=== PATIENT | male | born 1970 | race Caucasian/White ===

== ENCOUNTER 2021-01-08 14:47 | Emergency (ER) | payer BC, SELFPAY ==
--- NOTE | ~2021-01-08 | CT_ITS ---
EXAMINATION: CT ANGIOGRAM HEAD CT ANGIOGRAM NECK CLINICAL INFORMATION: Numbness and tingling. COMPARISON: None available. TECHNIQUE: Initial noncontrast founder ceo & president imaging of the head and neck was performed. Noncontrast head CT was also performed. Test bolus sequences followed by intravenous administration 70 mL of Omnipaque 350. Helical imaging was performed in the axial plane from the aortic arch to the skull vertex. Delayed postcontrast imaging of the head was also performed. The data was processed at the survey technologist's workstation for generation of MIP sequences. Angled MIPs and volume rendered reformatted images were also generated at an offline 3D workstation. Stenoses are assessed in accordance with NASCET criteria unless otherwise indicated. This CT examination was performed using dose optimization techniques as appropriate, variously including the following: *Automated exposure control. *Adjustment of mA and/or kV according to patient size (this includes techniques or standardized protocols for targeted exams where dose is matched to indication/reason for exam; i.e. extremities or head). *Use of iterative reconstruction technique. DLP: 2474 mGy-cm FINDINGS: CT Head: There is no evidence of acute intracranial hemorrhage or edematous territorial infarction. There is no abnormal attenuation within the brain parenchyma. Ken-white matter differentiation is preserved. The ventricles are normal in size and configuration. No evidence for obstructive hydrocephalus. No abnormal mass effect or midline shift. No extra-axial fluid collections. No pathologic intra-axial enhancement or regional oligemia. No acute soft tissue or osseous abnormalities. Moderate mucosal thickening of the paranasal sinuses. The mastoid air cells and middle ear cavities are clear. Right-sided lens extraction. CT Neck: The thyroid gland and remaining cervical soft tissues are within normal limits. Moderate degenerative disc disease at C5-C6 and C6-C7 with disc-osteophyte complex formation. Facet and uncovertebral joint arthropathy leads to mild osseous encroachment on the neural foramina at C5-C6 and C6-C7. CT Upper Chest: The visualized lung apices and upper mediastinum are within normal limits. Neck CTA: Aortic Arch: Normal contour and caliber. Two vessel branching pattern of the arch with left common carotid artery arising from the brachiocephalic trunk. Great Vessel Origins: No significant stenosis of the branch origins. Right Common Carotid Artery: Normal opacification without focal stenosis or occlusion. Cervical Right Internal Carotid Artery: Mild calcific atherosclerotic disease of the carotid bulb and proximal internal carotid artery without flow-limiting stenosis. Left Common Carotid Artery: Normal opacification without focal stenosis or occlusion. Cervical Left Internal Carotid Artery: Mixed lytic region calcific atherosclerotic disease of the carotid bulb and proximal internal carotid artery causes 50% stenosis. Cervical Right Vertebral Artery: Normal opacification without focal stenosis or occlusion. Cervical Left Vertebral Artery: Dominant. Normal opacification without focal stenosis or occlusion. Brain CTA: Intracranial Internal Carotid Arteries: Normal contrast opacification of the petrous, cavernous, paraophthalmic, and supraclinoid segments of the internal carotid arteries without focal stenosis. Right Anterior Cerebral Artery: Normal A1 segment. Normal opacification of the distal segments of the NATALYA. Left Anterior Cerebral Artery: Normal A1 segment. Normal opacification of the distal segments of the NATALYA. Anterior Communicating Artery: Normal. Right Middle Cerebral Artery: Normal opacification of the M1 segment of the MCA without focal stenosis or occlusion. Normal arborization of the distal segments. Left Middle Cerebral Artery: Normal opacification of the M1 segment of the MCA without focal stenosis or occlusion. Normal arborization of the distal segments. Right Vertebral Artery: Normal opacification of the V4 segment. Normal opacification of the proximal segments of the posterior inferior cerebellar artery. Left Vertebral Artery: Normal opacification of the V4 segment. Normal opacification of the proximal segments of the posterior inferior cerebellar artery. Basilar Artery: Normal opacification without focal stenosis or occlusion. Normal appearance of the proximal superior cerebellar arteries. Right Posterior Cerebral Artery: Normal P1 segment. Normal opacification of the distal segments of the MICROARRAY SPECIALIST. Left Posterior Cerebral Artery: The P1 segment is mildly diminutive. origin of the MICROARRAY SPECIALIST with robust opacification of the posterior communicating artery. Normal opacification of the distal segments of the MICROARRAY SPECIALIST. Normal opacification of the superior sagittal, straight, transverse, and sigmoid sinuses. CT/CT angio head neck IMPRESSION: 1. No evidence of acute intracranial hemorrhage or edematous territorial infarction. 2. CTA of the head and neck without proximal occlusion or flow-limiting stenosis. 3. Degenerative spondyloarthropathy of the cervical spine with moderate disc-osteophyte complex formation at C5-C6 and C6-C7 with indentation of the ventral cord.
[2021-01-08 14:54] VITALS: BP 164/84; PULSE 94; RESP 18; TEMP 36.8; O2SAT 97; BMI 32.8
--- NOTE | 2021-01-08 15:01 | ECG_ITS ---
Test Reason : WEAKNESS Blood Pressure : / mmHG Vent. Rate : 070 BPM Atrial Rate : 070 BPM P-R Int : 146 ms QRS Dur : 092 ms QT Int : 392 ms P-R-T Axes : 049 009 031 degrees QTc Int : 423 ms Normal sinus rhythm Normal ECG No previous ECGs available Referred By: Generic ED Physician Electronically Signed By:Juan J Walsh
[2021-01-08 15:19] LABS: MANUAL DIFF FLAG NO
[2021-01-08 15:21] LABS: Basophils Absolute Auto 0.1 X10*3/uL (0.0-0.2); Basophils Percent Auto 0.5 % (0-2); Eosinophils Absolute Auto 0.1 X10*3/uL (0.0-0.4); Eosinophils Percent Auto 1.3 % (0-4); Hematocrit 43.5 % (42-52); Hemoglobin 14.8 g/dl (14.0-18.0); Imm Gran Abs Auto 0.02 X10*3/uL (0.00-0.03); Imm Gran Pct Auto 0.2 % (0.0-0.4); Lymphocytes Absolute Auto 2.4 X10*3/uL (1.2-4.9); Lymphocytes Percent Auto 23.3 % (20-40); Mean Corpuscular Volume 88.2 fL (80-98); Mean Platelet Volume 9.9 fL (9.4-12.4); Monocytes Absolute Auto 0.8 X10*3/uL (0.1-1.2); Monocytes Percent Auto 7.7 % (2-11); Neutrophils Absolute Auto 6.8 X10*3/uL (2.0-8.3); Platelet Count 309 X10*3/uL (160-400); Red Blood Count 4.93 X10*6/uL (4.60-5.80); Red Cell Distribution Width 13.4 % (11.0-16.0); White Blood Count 10.2 X10*3/uL (4.8-10.8)
[2021-01-08 15:48] LABS: Anion Gap 14 (12-20); Blood Urea Nitrogen 11 mg/dL (9-16); Calcium 9.3 mg/dL (8.4-10.2); Carbon Dioxide 25 mmol/L (22-29); Chloride 103 mmol/L (96-108); Creatinine Clr Calc Pharmacy 112.6; Estimated Glomerular Filt Rate > 60; Glucose Random 111 mg/dL (60-115); Potassium 4.4 mmol/L (3.3-5.1); Sodium 138 mmol/L (135-145)
[2021-01-08 15:56] LABS: Troponin-I High Sensitivity < 3.5 ng/L (<3.5-35.0)
--- NOTE | 2021-01-08 19:49 | ED.GENADULT ---
HPI - General Adult General Chief complaint: General Medical Stated complaint: left side pain Source: patient Mode of arrival: ambulatory Limitations: no limitations History of Present Illness HPI narrative: 50-year-old male past medical history of hypertension and hyperlipidemia presents to the emergency department with 1 day of left-sided numbness and tingling, radiating from the neck down. He states that he did not present to the emergency department earlier because he had to work, and the only residual feeling he has at this time is numbness and tingling to the finger tips his 3rd 4th and 5th fingers of the left hand. He does not report any dizziness, changes in vision, lightheadedness, diaphoresis, loss of balance, palpitations, chest pain or pressure, shortness breath, shortness breath on exertion, edema, nausea, vomiting, diarrhea, constipation, melena, or hematochezia. Onset (ago): day(s) (1 approximately 23 hours) Location: neck, left, upper extremity and lower extremity Severity: mild Associated symptoms: denies other symptoms Treatments prior to arrival: none Related Data Previous Rx's Medication Instructions Recorded lisinopril 10 mg tablet 10 mg PO DAILY #90 tab 08/06/20 atorvastatin 40 mg tablet 40 mg PO DAILY #30 tab 09/04/20 cyclobenzaprine 10 mg PO TID PRN #20 tab 01/08/21 Allergies Allergy/AdvReac Type Severity Reaction Status Date / Time No Known Allergies Allergy Verified 01/08/21 19:49 Review of Systems Review of Systems: Constitutional: No Weight loss, No Fever, No Chills, No Night Sweats, No Fatigue, No Malaise ENT/Mouth: No Hearing loss, No Ear Pain, No Nasal Congestion, No Sinus Pain, No Hoarseness, No sore throat, No Rhinorrhea, No Swallowing Difficulty Eyes: No Eye Pain, No Swelling, No Redness, No Foreign Body, No Discharge, No Vision Changes Cardiovascular: No Chest Pain, No SOB, No Dyspnea on Exertion, No Orthopnea, No Edema, No Palpitations Respiratory: No Cough, No Sputum, No Wheezing, No Smoke Exposure, No Dyspnea Gastrointestinal: No Nausea, No Vomiting, No Diarrhea, No Constipation, No abdominal Pain, No Hematochezia, No Melena Genitourinary: no irregular bleeding, No Dysuria, No Urinary Frequency, No Hematuria, No Urinary Incontinence, No Urgency, No Flank Pain, No Urinary Flow Changes, No Hesitancy Musculoskeletal: No joint pain, No Myalgias, No Joint Swelling Skin: No Skin Lesions, No rash Neuro:Positive left-sided numbness and tingling, No Weakness, No Numbness, No Loss of Consciousness, No Dizziness, No Headache Psych: No Anxiety/Panic, No Depression, No SI/HI/AH/VH, No Social Issues Heme/Lymph: No Bruising, No Bleeding,No Lymphadenopathy Endocrine: No Polyuria, No Polydipsia, No Temperature Intolerance Yes all other systems are reviewed and are negative [facility] Past Medical History Attestation statement: The following information was validated with the patient. Source: old records reviewed Medical History HTN (hypertension) Hypercholesteremia Surgical History H/O eye surgery Social History Social History Advance Directives: No Advance Directives Information Provided: Yes Physical Exam Vital Signs: Vital Signs: Last Vital Signs Temp 98.1 F 01/08/21 21:39 Pulse 63 01/08/21 21:39 Resp 18 01/08/21 21:39 BP 180/81 H 01/08/21 21:39 Pulse Ox 96 01/08/21 21:39 Body Mass Index 32.8 Appearance: Alert. Oriented X3. No acute distress. Head: Normal external exam. Normocephalic. Atraumatic. No Riley signs noted. No raccoon eyes noted Eyes: PERRLA. EOMI. Conjunctiva and sclera normal. Eyelids normal. ENT: TM's Normal. Pharynx normal. Uvula midline. Moist mucous membranes. No trismus noted. No drooling noted. No muffled voice noted. Neck: Normal inspection. Neck supple. No adenopathy. Thyroid Normal. No meningeal signs. No neck mass noted. CVS: Normal heart rate and rhythm. Heart sound normal. No murmurs noted. Pulses equal to all extremities. Respiratory: No respiratory distress. Painless inspiration. Breath sounds normal. No wheezes/rales/rhonchi noted. Chest nontender. No accessory muscle usage noted or decreased air movement noted. Abdomen: Soft and nontender. Bowel sounds normal in all 4 quadrants. No distention noted. No organomegaly noted. No visible injury noted. Back: No CVA tenderness. Full range of motion noted. Skin: Skin warm and dry. Normal skin color. Normal skin turgor. No rashes/lesions/lacerations noted. Extremities: No lower extremity edema. Extremities exhibit normal range of motion. Extremities nontender. Neuro: cranial nerves 2-12 intact, no focal neural deficits, strength 5/5 to all extremities, No motor deficit. No sensory deficit. NIH Stroke Scale Internal: Initial- Upon Arrival Level of Consciousness: Alert Level of Consciousness Questions: Answers both questions correctly Level of Consciousness Commands: Performs both tasks correctly Best Gaze: Normal Visual: No visual loss Facial Palsy: Normal Motor Arm (Right): No drift Motor Arm (Left): No drift Motor Leg (Right): No drift Motor Leg (Left): No drift Limb Ataxia: Absent Sensory: Normal Best Language: No aphasia Dysarthia: Normal Extinction and Inattention: No abnormality Score: 0 Course Course Course Narrative: A 50-year-old male presents with approximately 23 hours of numbness and tingling to the left side, numbness and tingling with greater earlier in the day and involve his left arm and left leg. At this time, he states that he only has tingling to the tips of his fingers 3rd 4th and 5th on the left hand. Does not have any focal neurological deficits, cranial nerves 2-12 intact, gait well balanced well coordinated, negative Romberg. Based on patient's history hyperlipidemia, and hypertension we will order CTA of head and neck to rule out CVA at this time. Will rule out ACS with troponin and EKG, patient does not have any chest pain. EKG is normal sinus, troponin is 0. Labs are unremarkable. CTA negative for acute findings, has 50% carotid stenosis and degenerative disc disease in the cervical spine with osteophytes. Is most likely the disc degeneration and osteophytes is causing the radiculopathy, patient was advised to follow up with primary care physician for further evaluation. Patient discharge home, patient verbalized understanding of and agrees to plan of care to discharge home. Medical Decision Making Differential Diagnosis Differential Diagnosis: CVA, disc degeneration, ACS, Lyme disease, anemia Medical Records Medical records reviewed: Yes I reviewed the patient's medical records. Lab Data Lab results reviewed: Yes I reviewed the patient's lab results. Result diagrams: 01/08/21 15:11 01/08/21 15:11 Labs: Lab Results 01/08/21 01/08/21 01/08/21 Range/Units 15:11 15:11 15:11 WBC 10.2 (4.8-10.8) X10*3/uL RBC 4.93 (4.60-5.80) X10*6/uL Hgb 14.8 (14.0-18.0) g/dl Hct 43.5 (42-52) % MCV 88.2 (80-98) fL MCH 30.0 (27.0-33.0) pg MCHC 34.0 (31.0-36.0) g/dl RDW 13.4 (11.0-16.0) % Plt Count 309 (160-400) X10*3/uL MPV 9.9 (9.4-12.4) fL Immature Gran % (Auto) 0.2 (0.0-0.4) % Neut % (Auto) 67.0 (45-73) % Lymph % (Auto) 23.3 (20-40) % Gates % (Auto) 7.7 (2-11) % Eos % (Auto) 1.3 (0-4) % Baso % (Auto) 0.5 (0-2) % Lymph # (Auto) 2.4 (1.2-4.9) X10*3/uL Gates # (Auto) 0.8 (0.1-1.2) X10*3/uL Eos # (Auto) 0.1 (0.0-0.4) X10*3/uL Baso # (Auto) 0.1 (0.0-0.2) X10*3/uL Abs Immat Gran (auto) 0.02 (0.00-0.03) X10*3/uL Absolute Neuts (auto) 6.8 (2.0-8.3) X10*3/uL Absolute Nucleated RBC 0.000 (0.0-0.012) X10*3/uL Nucleated RBC % (auto) 0.0 (0.0-0.2) /100WBC Hold Blue Top SEE NOTE Sodium 138 (135-145) mmol/L Potassium 4.4 (3.3-5.1) mmol/L Chloride 103 (96-108) mmol/L Carbon Dioxide 25 (22-29) mmol/L Anion Gap 14 (12-20) BUN 11 (9-16) mg/dL Creatinine 0.91 (0.5-1.4) mg/dL Estim Creat Clear Calc 112.6 Estimated GFR > 60 Random Glucose 111 (60-115) mg/dL Calcium 9.3 (8.4-10.2) mg/dL Troponin I High Sens (<3.5-35.0) ng/L 01/08/21 Range/Units 15:11 WBC (4.8-10.8) X10*3/uL RBC (4.60-5.80) X10*6/uL Hgb (14.0-18.0) g/dl Hct (42-52) % MCV (80-98) fL MCH (27.0-33.0) pg MCHC (31.0-36.0) g/dl RDW (11.0-16.0) % Plt Count (160-400) X10*3/uL MPV (9.4-12.4) fL Immature Gran % (Auto) (0.0-0.4) % Neut % (Auto) (45-73) % Lymph % (Auto) (20-40) % Gates % (Auto) (2-11) % Eos % (Auto) (0-4) % Baso % (Auto) (0-2) % Lymph # (Auto) (1.2-4.9) X10*3/uL Gates # (Auto) (0.1-1.2) X10*3/uL Eos # (Auto) (0.0-0.4) X10*3/uL Baso # (Auto) (0.0-0.2) X10*3/uL Abs Immat Gran (auto) (0.00-0.03) X10*3/uL Absolute Neuts (auto) (2.0-8.3) X10*3/uL Absolute Nucleated RBC (0.0-0.012) X10*3/uL Nucleated RBC % (auto) (0.0-0.2) /100WBC Hold Blue Top Sodium (135-145) mmol/L Potassium (3.3-5.1) mmol/L Chloride (96-108) mmol/L Carbon Dioxide (22-29) mmol/L Anion Gap (12-20) BUN (9-16) mg/dL Creatinine (0.5-1.4) mg/dL Estim Creat Clear Calc Estimated GFR Random Glucose (60-115) mg/dL Calcium (8.4-10.2) mg/dL Troponin I High Sens < 3.5 (<3.5-35.0) ng/L Imaging Data CT head neck: Attestation: I personally reviewed and interpreted this imaging study as follows: Radiologist's impression: EXAMINATION: CT ANGIOGRAM HEAD CT ANGIOGRAM NECK CLINICAL INFORMATION: Numbness and tingling. COMPARISON: None available. TECHNIQUE: Initial noncontrast geodetic engineer imaging of the head and neck was performed. Noncontrast head CT was also performed. Test bolus sequences followed by intravenous administration 70 mL of Omnipaque 350. Helical imaging was performed in the axial plane from the aortic arch to the skull vertex. Delayed postcontrast imaging of the head was also performed. The data was processed at the lab animal technologist's workstation for generation of MIP sequences. Angled MIPs and volume rendered reformatted images were also generated at an offline 3D workstation. Stenoses are assessed in accordance with NASCET criteria unless otherwise indicated. This CT examination was performed using dose optimization techniques as appropriate, variously including the following: *Automated exposure control. *Adjustment of mA and/or kV according to patient size (this includes techniques or standardized protocols for targeted exams where dose is matched to indication/reason for exam; i.e. extremities or head). *Use of iterative reconstruction technique. DLP: 2474 mGy-cm FINDINGS: CT Head: There is no evidence of acute intracranial hemorrhage or edematous territorial infarction. There is no abnormal attenuation within the brain parenchyma. Ken-white matter differentiation is preserved. The ventricles are normal in size and configuration. No evidence for obstructive hydrocephalus. No abnormal mass effect or midline shift. No extra-axial fluid collections. No pathologic intra-axial enhancement or regional oligemia. No acute soft tissue or osseous abnormalities. Moderate mucosal thickening of the paranasal sinuses. The mastoid air cells and middle ear cavities are clear. Right-sided lens extraction. CT Neck: The thyroid gland and remaining cervical soft tissues are within normal limits. Moderate degenerative disc disease at C5-C6 and C6-C7 with disc-osteophyte complex formation. Facet and uncovertebral joint arthropathy leads to mild osseous encroachment on the neural foramina at C5-C6 and C6-C7. CT Upper Chest: The visualized lung apices and upper mediastinum are within normal limits. Neck CTA: Aortic Arch: Normal contour and caliber. Two vessel branching pattern of the arch with left common carotid artery arising from the brachiocephalic trunk. Great Vessel Origins: No significant stenosis of the branch origins. Right Common Carotid Artery: Normal opacification without focal stenosis or occlusion. Cervical Right Internal Carotid Artery: Mild calcific atherosclerotic disease of the carotid bulb and proximal internal carotid artery without flow-limiting stenosis. Left Common Carotid Artery: Normal opacification without focal stenosis or occlusion. Cervical Left Internal Carotid Artery: Mixed lytic region calcific atherosclerotic disease of the carotid bulb and proximal internal carotid artery causes 50% stenosis. Cervical Right Vertebral Artery: Normal opacification without focal stenosis or occlusion. Cervical Left Vertebral Artery: Dominant. Normal opacification without focal stenosis or occlusion. Brain CTA: Intracranial Internal Carotid Arteries: Normal contrast opacification of the petrous, cavernous, paraophthalmic, and supraclinoid segments of the internal carotid arteries without focal stenosis. Right Anterior Cerebral Artery: Normal A1 segment. Normal opacification of the distal segments of the NATALYA. Left Anterior Cerebral Artery: Normal A1 segment. Normal opacification of the distal segments of the NATALYA. Anterior Communicating Artery: Normal. Right Middle Cerebral Artery: Normal opacification of the M1 segment of the MCA without focal stenosis or occlusion. Normal arborization of the distal segments. Left Middle Cerebral Artery: Normal opacification of the M1 segment of the MCA without focal stenosis or occlusion. Normal arborization of the distal segments. Right Vertebral Artery: Normal opacification of the V4 segment. Normal opacification of the proximal segments of the posterior inferior cerebellar artery. Left Vertebral Artery: Normal opacification of the V4 segment. Normal opacification of the proximal segments of the posterior inferior cerebellar artery. Basilar Artery: Normal opacification without focal stenosis or occlusion. Normal appearance of the proximal superior cerebellar arteries. Right Posterior Cerebral Artery: Normal P1 segment. Normal opacification of the distal segments of the SR ACCOUNT EXECUTIVE. Left Posterior Cerebral Artery: The P1 segment is mildly diminutive. origin of the SR ACCOUNT EXECUTIVE with robust opacification of the posterior communicating artery. Normal opacification of the distal segments of the SR ACCOUNT EXECUTIVE. Normal opacification of the superior sagittal, straight, transverse, and sigmoid sinuses. CT/CT angio head neck IMPRESSION: 1. No evidence of acute intracranial hemorrhage or edematous territorial infarction. 2. CTA of the head and neck without proximal occlusion or flow-limiting stenosis. 3. Degenerative spondyloarthropathy of the cervical spine with moderate disc-osteophyte complex formation at C5-C6 and C6-C7 with indentation of the ventral cord. ECG Data Attestation: I personally reviewed and interpreted this ECG as follows: Interpretation: Vent. rate 70 BPM IL interval 146 ms QRS duration 92 ms QT/QTc 392/423 ms P-R-T axes 49 9 31 Normal sinus rhythm Septal infarct , age undetermined Abnormal ECG No previous ECGs available Date January 08, 2021, time 3:45 p.m. Scores Heart Score History: -1- moderately suspicious ECG: -0- normal Age: -1- >45 - <65 Risk factory: -1- 1 or 2 risk factors Troponin: -0- < or = normal limit Score: 3 Risk: 1.7% Discharge Plan Discharge Clinical Impression: Degenerative disc disease, cervical, Carotid artery stenosis Patient Disposition: Home, Self-Care Instructions: Carotid Artery Disease (DC), Degenerative Disc Disease (ED) Additional Instructions: You were evaluated for numbness and tingling to the left side. CTA is negative for stroke, but does show degenerative disc disease and carotid stenosis. You need to follow-up with primary care physician for the carotid stenosis. Further degenerative disc disease please follow-up with Pain Management, Dr Elise. You will need physical therapy to help alleviate these symptoms. Thank you for choosing this emergency department for evaluation. Please follow-up with primary care physician as needed. Return to the emergency department for any new, concerning, or worsening symptoms. Prescriptions: New cyclobenzaprine 10 mg tablet 10 mg PO TID PRN (Reason: muscle spasm) Qty: 20 RF: 0 No Action lisinopril 10 mg tablet 10 mg PO DAILY Qty: 90 RF: 3 atorvastatin 40 mg tablet 40 mg PO DAILY Qty: 30 RF: 1 Referrals: aJs Elise MD [Physician] - 2 days (Degenerative disc disease) Interventions: ED Discharge Assessment Last Done: 01/08/21 22:41 Discharge Date/Time: 01/08/21 22:41
--- NOTE | 2021-01-08 20:16 | PC.NURSE ---
18g IV access established in left AC. Labs drawn and sent for analysis. Awaiting results. Pt away for CT scan with contrast.
[2021-01-08] MEDS: iohexoL 350 MG/ML 100 ML INFUS..BTL IV (20:39)
[2021-01-08 21:39] VITALS: BP 180/81; PULSE 63; RESP 18; TEMP 36.7; O2SAT 96
[2021-01-09 04:49] LABS: Vitamin B12 518 pg/mL (200-900)
[2021-01-10 17:22] LABS: Lyme Abs Screen <0.90 index
== END 2021-01-08 22:41 | disposition home or self-care (01) ==
PROVIDERS: Nurse Practitioner Family; Emergency Provider Internal Medicine; PCP Internal Medicine
DX: I65.23 Occlusion and stenosis of bilateral carotid arteries (principal); M48.02 Spinal stenosis, cervical region; M50.322 Other cervical disc degeneration at C5-C6 level; I10 Essential (primary) hypertension; Z79.899 Other long term (current) drug therapy
CPT/HCPCS: 36415; 70496; 70498; 80048; 82607; 84484; 85025; 86617; 86618; 93005; 99284; Q9967

== ENCOUNTER 2022-01-01 11:12 | Outpatient (REF) | payer BC, SELFPAY ==
[2022-01-01 13:58] LABS: Alanine Aminotransferase 53 U/L (0-40); Anion Gap 13 (12-20); Aspartate Amino Transferase 42 U/L (5-37); Blood Urea Nitrogen 8 mg/dL (9-16); Calcium 10.2 mg/dL (8.4-10.2); Carbon Dioxide 27 mmol/L (22-29); Chloride 104 mmol/L (96-108); Cholesterol 210 mg/dL; Estimated Glomerular Filt Rate > 60; Glucose Fasting 100 mg/dL (60-99); HDL Cholesterol 46 mg/dL; LDL Cholesterol Calculated 147 mg/dl; Potassium 5.2 mmol/L (3.3-5.1); Sodium 139 mmol/L (135-145); Triglycerides 89 mg/dL
== END 2022-01-01 11:13 | disposition home or self-care (01) ==
LOC: HO.HMGCLDS 11:12
PROVIDERS: Visit Provider Internal Medicine
DX: E78.00 Pure hypercholesterolemia, unspecified (principal); I10 Essential (primary) hypertension
CPT/HCPCS: 36415; 80048; 80061; 84450; 84460

== ENCOUNTER 2023-06-18 11:11 | Outpatient (AMB) | payer BC, SELFPAY ==
[2023-06-18 11:15] VITALS: BP 160/100; PULSE 71; O2SAT 98; BMI 33.3
--- NOTE | 2023-06-18 11:15 | MHC.PC.OV ---
Vital Signs 06/18/23 11:15 Height 5 ft 8 in Weight 219 lb BMI 33.3 BP 160/100 H Blood Pressure Location Rt brachial Position Sitting Pulse 71 Pulse Source Pulse Oximeter Pulse Oximetry (%) 98 Oxygen Delivery Method Room Air Intake Visit Reasons: F/U Meds Intake Note: patient is here today for f/u meds Allergies No Known Allergies Allergy (Verified 06/18/23 11:37) Medication List - Last Reconciled 06/18/23 by Annelise Atkinson MD atorvastatin 40 mg PO DAILY lisinopril 10 mg PO DAILY montelukast 10 mg PO DAILY Tobacco use date assessed: 06/18/23 Dental Screening Dental Screen Date: 06/18/23 Did you have a dental visit in the last 12 months?: No Did you have a dental problem in the last 6 months where you did not have access to dental care?: Yes Was dental information given to patient?: Patient has dentist HPI F/U Meds HPI Details 52-year-old male with hypertension, dyslipidemia and Seasonal and Environmental allergies, here today for follow-up. Currently on lisinopril 10 mg, atorvastatin 40 mg daily and montelukast 10 mg daily. Blood pressure however still remaining elevated, with today's blood pressure at 160/100. He also is complaining recurrent nasal congestion with postnasal drainage, which has been present now for the last several weeks. Was told that he had nasal polyp in the past. No improvement with [id number] antihistamines or with taking his montelukast. He states that it has been so bad that it interferes with his sleep, which in turn affects his concentration/ focus at work. [facility] Medical History (Updated 06/18/23 @ 11:50 by Annelise Atkinson MD) Anosmia Nasal congestion Nasal polyp Allergic rhinitis Malaise and fatigue Encounter for screening for malignant neoplasm of colon Elevated liver enzymes Obesity (BMI 30.0-34.9) Essential hypertension Dyslipidemia Surgical History H/O eye surgery Social History Housing: House Patient Tobacco Use Status: Never used Tobacco e-Cigarette/Vaping Use: Never Used service: No Current occupational status: employed Cognitive needs: No Hearing needs: No Vision needs: Yes Questionnaire PHQ-9 Over the last 2 weeks, how often have you been bothered by any of the following problems? 1. Little interest or pleasure in doing things: several days 2. Feeling down, depressed, or hopeless: not at all 3. Trouble falling or staying asleep, or sleeping too much: nearly every day 4. Feeling tired or having little energy: nearly every day 5. Poor appetite or overeating: nearly every day 6. Feeling bad about yourself - or that you are a failure or have let yourself or your family down: not at all 7. Trouble concentrating on things, such as reading the newspaper or watching television: not at all 8. Moving or speaking so slowly that other people could have noticed. Or the opposite - being so fidgety or restless that you have been moving around a lot more than usual: not at all 9. Thoughts that you would be better off or of hurting yourself in some way: not at all Total score: 10 Depression Screening Interpretation: Negative 69214 - PHQ-9 Billing: Yes Source: Developed by Drs. Tapan Dwyer, Peggy Heath, Abhijit Wallace and colleagues, with an educational beatrice from [employer]. Thrive Questionnaire Date Thrive assessed: 06/18/23 I am a: Patient What is your living situation today?: I have a steady place to live Within the past 12 months, did the food you bought not last and you didn't have the money to get more?: Never true Within the past 12 months, did you worry whether your food would run out before you got money to buy more?: Never true Do you have trouble paying for medicines?: Yes Do you have trouble getting transportation to medical appointments?: Yes Do you have trouble paying your heating and electricity bill?: Yes Do you have trouble taking care of your child, family member or friend?: Yes Do you have trouble with day-to-day activities such as bathing, preparing meals, shopping, managing finances, etc.?: Yes Are you currently unemployed and looking for a job?: Yes Are you interested in more education?: Yes Please select the resources that you would like help with: None AUDIT C Alcohol Use Questionnaire (AUDIT-C) 1. How often do you have a drink containing alcohol?: Never Total Score: 0 FIDENCIO-7 AMB Questionnaire FIDENCIO-7 Date FIDENCIO - 7 assessed: 06/18/23 Feeling nervous, anxious, or on edge: 0 = Not at all Not being able to stop or control worryin = Not at all Worrying too much about different things: 0 = Not at all Trouble relaxin = Several days Being so restless that it is hard to sit still: 0 = Not at all Becoming easily annoyed or irritable: 2 = More than half the days Feeling afraid as if something awful might happen: 0 = Not at all Total FIDENCIO-7 score (0-4 normal; 5-9 mild; 10-14 moderate; 15-21 severe): 3 Source: Developed by Drs. Tapan Dwyer, Peggy Heath, Abhijit Wallace and colleagues, with an educational beatrice from [employer]. FIDENCIO-7 Assessment Billing FIDENCIO-7 Assessment Tool: FIDENCIO-7 Assessment 51566 Review of Systems Const Denies body aches, Denies fever(s), Denies headache(s), Reports lethargy and Denies weakness Eyes Denies change in vision, Denies eye discharge and Denies itchy eyes ENT Denies dizziness, Denies headache(s) and Denies sore throat Card Denies chest pain, Denies lightheadedness, Denies palpitations, Denies dyspnea and Denies dyspnea on exertion Resp Denies chest congestion, Denies cough, Denies dyspnea, Denies dyspnea on exertion and Reports wheezing GI Denies abdominal pain, Denies change in bowel habits and Denies heartburn Musc Reports no additional complaints Skin/Breast Denies lesions and Denies rash Neuro Denies dizziness, Denies headache(s) and Denies weakness Psych Reports no additional complaints Endo Denies polydipsia, Denies polyuria and Denies palpitations Felix/Lymph Denies easy bruising Aller/Immun Denies itchy eyes, Denies seasonal rhinorrhea and Reports wheezing Physical exam (Primary Care) Vital Signs: Last Vital Signs Pulse 71 06/18/23 11:15 BP 160/100 H 06/18/23 11:15 Pulse Ox 98 06/18/23 11:15 Oxygen Delivery Method Room Air 06/18/23 11:15 BMI result Body Mass Index 33.3 Tobacco/Smoking Status: Tobacco use Status Tobacco use date assessed 06/18/23 06/18/23 11:25 Patient Tobacco Use Status Never used Tobacco 06/18/23 11:15 e-Cigarette/Vaping Use Never Used 06/18/23 11:15 PHQ-9: PHQ-9 Score PHQ-9: Total score 13 06/18/23 12:32 Depression Screening Interpretation: Negative Thrive Assessment: Date of Thrive Assessment Date Thrive assessed 06/18/23 06/18/23 12:32 Const General: no acute distress Orientation/consciousness: patient oriented x3 HENMT Ears: hearing grossly normal bilaterally, external ears normal, TM's normal bilaterally and EAC's normal General nose exam: Normal external nose present and Abnormal mucous membranes and turbinates present boggy and pale Mouth: Normal oral and palatal mucosa present, oropharynx normal and moist mucous membranes Eyes General: appearance normal, both eyes and all related structures Conjunctivae: conjunctivae normal Pupils: Equal, round and reactive pupils present EOM: EOMs intact bilaterally Neck Neck: Yes full ROM, Yes no lymphadenopathy and Yes supple Resp Effort & Inspection: normal respiratory effort and able to speak in complete sentences Auscultation: clear to auscultation bilaterally Cardio Rate: regular rate Rhythm: regular rhythm Heart sounds: S1 normal heart sound present and S2 normal heart sound present GI Inspection: Yes normal to inspection Palpation (GI): Soft to palpation, nontender and no masses Auscultation: normal bowel sounds Skin General skin exam: no rashes or lesions noted Neuro General: patient oriented x3, gait normal, tone normal, moves all extremities, Normal light touch and pain sensation and no focal motor deficits Cranial nerves: Yes Equal, round and reactive pupils present Cognition (Neuro): normal cognition Gait exam (Neuro): Normal gait present Motor exam (neuro): 5/5 motor strength present throughout Extrem General: Yes full ROM, Yes no joint enlargement, Yes no pedal edema, Yes no calf tenderness and Yes normal gait Psych Appearance: grossly normal and well kempt Mental Status: mental status grossly normal Speech and movement: Normal speech and movement present Affect: normal affect Attitude: cooperative Assessment and Plan Assessment & Plan (1) Dyslipidemia: Code(s): E78.5 - Hyperlipidemia, unspecified Plan: Fasting lipid panel ordered, continue 40 mg daily, in addition to adhering to healthy diet and getting regular exercise. (2) Essential hypertension: Code(s): I10 - Essential (primary) hypertension Plan: Blood pressure elevated today, will continue on lisinopril 10 mg daily. Reinforced importance of following a low sodium diet, getting regular exercise, and lowering stress levels. (3) Malaise and fatigue: Code(s): R53.81 - Other malaise; R53.83 - Other fatigue Plan: Will check a CBC vitamin B12 and folic acid, TSH with reflex free T4, and vitamin-D level (4) Allergic rhinitis: Code(s): J30.9 - Allergic rhinitis, unspecified Plan: Continue montelukast, prescription sent for Azelastine nasal spray (5) Anosmia: Code(s): R43.0 - Anosmia Plan: Referred to ENT (6) Nasal congestion: Code(s): R09.81 - Nasal congestion Plan: Continue with montelukast, started on Azelastine nasal spray, to use as directed. Will refer to ENT for further evaluation management (7) Nasal polyp: Code(s): J33.9 - Nasal polyp, unspecified Plan: Referred to ENT Orders: Orders Hemoglobin A1c 06/18/23 E78.5 - Hyperlipidemia, unspecified, I10 - Essential (primary) hypertension Alanine Aminotransferase 06/18/23 E78.5 - Hyperlipidemia, unspecified, I10 - Essential (primary) hypertension Aspartate Amino Transferase 06/18/23 E78.5 - Hyperlipidemia, unspecified, I10 - Essential (primary) hypertension Vitamin D 25-OH Total 06/18/23 E78.5 - Hyperlipidemia, unspecified, I10 - Essential (primary) hypertension Basic Metabolic Panel Fasting 06/18/23 E78.5 - Hyperlipidemia, unspecified, I10 - Essential (primary) hypertension Lipid Panel 06/18/23 E78.5 - Hyperlipidemia, unspecified, I10 - Essential (primary) hypertension Vitamin B12 and Folate 06/18/23 E78.5 - Hyperlipidemia, unspecified, I10 - Essential (primary) hypertension TSH reflex Free T4 06/18/23 R53.81 - Other malaise, R53.83 - Other fatigue, J30.9 - Allergic rhinitis, unspecified Complete Blood Count Auto Diff 06/18/23 R53.81 - Other malaise, R53.83 - Other fatigue, J30.9 - Allergic rhinitis, unspecified Referrals Ear/Nose/Throat Referral J33.9 - Nasal polyp, unspecified, R09.81 - Nasal congestion, R43.0 - Anosmia Medications: New azelastine administer into each nostril 2 sprays intranasal BID 30 mL 0RF J30.9 - Allergic rhinitis, unspecified Refilled lisinopril 10 mg PO DAILY 90 tabs 1RF montelukast 10 mg PO DAILY 90 tabs 1RF atorvastatin 40 mg PO DAILY 90 tabs 1RF Coding Level of Care Code Est Pt Level 4 (20165) Diagnoses Dyslipidemia E78.5 Essential hypertension I10 Malaise and fatigue R53.81; R53.83 Allergic rhinitis J30.9 Anosmia R43.0 Nasal congestion R09.81 Nasal polyp J33.9 Additional Codes FIDENCIO-7 Assessment Billing - FIDENCIO-7 Assessment Tool: FIDENCIO-7 Assessment 83097 ([id number])
== END 2023-06-18 11:58 | disposition home or self-care (01) ==
PROVIDERS: PCP Internal Medicine; Visit Provider Internal Medicine
DX: E78.5 Hyperlipidemia, unspecified (principal); I10 Essential (primary) hypertension; R53.81 Other malaise; R53.83 Other fatigue; J30.9 Allergic rhinitis, unspecified; R43.0 Anosmia; R09.81 Nasal congestion; J33.9 Nasal polyp, unspecified
CPT/HCPCS: 99214

== ENCOUNTER 2023-07-09 14:46 | Outpatient (AMB) | payer BC, SELFPAY ==
--- NOTE | 2023-07-09 14:51 | A.OFFVIS_ITS ---
Intake Vital Signs 07/09/23 14:53 Height 5 ft 8 in Weight 215 lb BMI 32.7 BP 170/86 H Blood Pressure Location Lt brachial Position Sitting Pulse 70 Intake Visit Reasons: Rediscuss Colonoscopy Intake Note: Patient new consult for 1st pre Colonoscopy. Patient denies any GI issues. 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 male here today for pre col onoscopy screening.? Patient was sent to us by his PCP.? This is his first colonoscopy screening.? Patient denies any gastrointestinal symptoms in the past or at present.? Maternal grandmother was diagnosed in her 70s with colorectal cancer. Denies history of difficulty with sedation or anesthesia in the past.? Negative for history of sleep apnea.? Denies any history of cardiac, renal, pulmonary, or hepatic disease.?? No history of infectious? diseases like hepatitis A, B, C, HIV or tuberculosis.? Patient is on low-dose aspirin [facility] Medical History (Updated 06/18/23 @ 11:50 by Annelise Atkinson MD) Anosmia Nasal congestion Nasal polyp Allergic rhinitis Malaise and fatigue Encounter for screening for malignant neoplasm of colon Elevated liver enzymes Obesity (BMI 30.0-34.9) Essential hypertension Dyslipidemia Surgical History H/O eye surgery Social History Housing: House Patient Tobacco Use Status: Never used Tobacco e-Cigarette/Vaping Use: Never Used service: No Current occupational status: employed Cognitive needs: No Hearing needs: No Vision needs: Yes Review of Systems Const Denies weight gain and Denies weight loss ENT Reports no additional complaints, Denies dysphagia and Denies odynophagia Card Reports no additional complaints Resp Reports no additional complaints GI Denies abdominal pain, Denies belching, Denies melena, Denies bloating, Denies change in bowel habits, Denies dysphagia, Denies excessive flatus, Denies dyspepsia, Denies heartburn, Denies diarrhea, Denies loose stools, Denies nausea, Denies odynophagia and Denies vomiting Reports no additional complaints Musc Reports no additional complaints Neuro Reports no additional complaints Psych Reports no additional complaints Endo Reports no additional complaints Physical Exam Vital Signs: Last Vital Signs Pulse 70 07/09/23 14:53 BP 170/86 H 07/09/23 14:53 BMI result Body Mass Index 32.7 Const General: healthy appearing, no acute distress and well developed Nutritional Appearance: obese Orientation/consciousness: patient oriented x3 HEENT Head: Yes normal to inspection, Yes normocephalic and Yes atraumatic Face and sinus: Yes normal facial exam Mouth: Normal oral and palatal mucosa present Throat: Yes posterior oropharynx normal, Yes tonsils normal and Yes uvula midline Eyes General: appearance normal, both eyes and all related structures Neck Neck: Yes normal visual inspection, Yes full ROM and Yes trachea midline Thyroid: Thyroid normal Resp Effort & Inspection: normal respiratory effort, able to speak in complete sentences, no tracheal deviation and symmetric chest movement Auscultation: clear to auscultation bilaterally Cardio Rate: regular rate Heart sounds: S1 normal heart sound present and S2 normal heart sound present GI Inspection: Yes normal to inspection, No distended and Yes obesity Palpation (GI): Soft to palpation, not firm, nontender and No hepatosplenomegaly present Auscultation: normal bowel sounds General: Yes no CVA tenderness Back/Spine/Pelvis Back: no CVA tenderness Skin General skin exam: elasticity normal, turgor normal and dry skin Neuro General: patient oriented x3 Psych Appearance: grossly normal Mental Status: mental status grossly normal Assessment & Plan Assessment & Plan (1) Encounter for screening for malignant neoplasm of colon: Code(s): Z12.11 - Encounter for screening for malignant neoplasm of colon Plan: Patient denies any GI, cardiac or respiratory symptoms.? Denies any issues with anesthesia in the past.? Denies any history of sleep apnea.? No history infectious diseases in the past or present.? On low-dose aspirin. Family history of colorectal cancer.? ? Patient denies melena, hematochezia, unintentional weight loss or ribbon like stools.? Discussed at length the pre- procedure,? prep, diet & medications as well as what to expect prior, during and after the procedure.?? Stressed the importance of good bowel prep. ?Recommended the use of Vaseline or Calmoseptine OTC & baby wipes with bowel movements to promote comfort.? ?Patient verbalizes understanding and agrees to plan of care.? He was given the opportunity to ask questions and all questions answered.? We will see him after the procedure Medications: New bisacodyl (Dulcolax (bisacodyl)) take 4 tabs at noon the day before your colonoscopy 20 mg (4 x 5 mg) PO ONCE 4 tabs 0RF 1 day Z12.11 - Encounter for screening for malignant neoplasm of colon polyethylene glycol 3350 (Miralax) As directed by gastroenterology department at [facility] 238 grams PO ONCE 238 grams 0RF Z12.11 - Encounter for screening for malignant neoplasm of colon Coding Level of Care Code New Pt Level 3 (82139) Diagnoses Encounter for screening for malignant neoplasm of colon Z12.11 Time Spent (min) 40 Comment 30 minutes spent with patient and additional 10 minutes spent reviewing his records
[2023-07-09 14:53] VITALS: BP 170/86; PULSE 70; BMI 32.7
== END 2023-07-09 15:54 | disposition home or self-care (01) ==
PROVIDERS: PCP Internal Medicine; Visit Provider Nurse Practitioner Family
DX: Z01.818 Encounter for other preprocedural examination (principal); Z12.11 Encounter for screening for malignant neoplasm of colon
CPT/HCPCS: S0285

== ENCOUNTER → 2023-07-09 14:46 | Outpatient (BNVA) | payer BC, SELFPAY | PROVIDERS: PCP Internal Medicine; Visit Provider Nurse Practitioner Family ==

== ENCOUNTER 2023-12-25 10:05 | Outpatient (REF) | payer BC, SELFPAY ==
[2023-12-25 11:21] LABS: Basophils Absolute Auto 0.1 X10*3/uL (0.0-0.2); Basophils Percent Auto 0.9 % (0-2); Eosinophils Absolute Auto 0.5 X10*3/uL (0.0-0.4); Eosinophils Percent Auto 5.7 % (0-4); Hematocrit 46.8 % (42.0-52.0); Hemoglobin 16.1 g/dl (14.0-18.0); Imm Gran Abs Auto 0.02 X10*3/uL (0.00-0.03); Imm Gran Pct Auto 0.2 % (0.0-0.4); Lymphocytes Absolute Auto 2.4 X10*3/uL (1.2-4.9); Lymphocytes Percent Auto 24.9 % (20-40); MANUAL DIFF FLAG NO; Mean Corpuscular HGB Conc 34.4 g/dl (31.0-36.0); Mean Corpuscular Hemoglobin 29.7 pg (27.0-33.0); Mean Corpuscular Volume 86.3 fL (80.0-98.0); Mean Platelet Volume 10.7 fL (9.4-12.4); Monocytes Absolute Auto 0.9 X10*3/uL (0.1-1.2); Monocytes Percent Auto 9.7 % (2-11); Neutrophils Absolute Auto 5.6 x10*3/uL (2.0-8.3); Neutrophils Percent Auto 58.6 % (45-73); Platelet Count 354 X10*3/uL (160-400); Red Blood Count 5.42 X10*6/uL (4.60-5.80); Red Cell Distribution Width 13.6 % (11.0-16.0); White Blood Count 9.6 X10*3/uL (4.8-10.8)
[2023-12-25 11:43] LABS: Estimated Average Glucose 108 mg/dL; Hemoglobin A1c % 5.4 % (<6.0)
[2023-12-25 12:29] LABS: Alanine Aminotransferase 53 U/L (0-40); Anion Gap 12 (12-20); Aspartate Amino Transferase 46 U/L (5-37); Blood Urea Nitrogen 10 mg/dL (9-16); Calcium 9.3 mg/dL (8.4-10.2); Carbon Dioxide 27 mmol/L (22-29); Chloride 104 mmol/L (96-108); Cholesterol 220 mg/dL (<200); Estimated Glomerular Filt Rate > 60; Glucose Fasting 110 mg/dL (60-99); HDL Cholesterol 44 mg/dL (>40); LDL Cholesterol Calculated 155 mg/dL (<100); Potassium 4.6 mmol/L (3.3-5.1); Sodium 138 mmol/L (135-145); Triglycerides 106 mg/dL (<150)
[2023-12-25 12:36] LABS: TSH reflex Free T4 1.29 uIU/mL (0.32-4.0)
[2023-12-25 12:41] LABS: Folate 9.6 ng/mL (> or = 4.0); Vitamin B12 750 pg/mL (200-900)
[2023-12-25 12:46] LABS: Vitamin D 25-OH Total 16.6 ng/mL (>30)
== END 2023-12-25 10:06 | disposition home or self-care (01) ==
LOC: HO.HMGCLDS 10:05
PROVIDERS: PCP Internal Medicine; Visit Provider Internal Medicine
DX: I10 Essential (primary) hypertension (principal); R53.81 Other malaise; R53.83 Other fatigue; J30.9 Allergic rhinitis, unspecified; E78.5 Hyperlipidemia, unspecified
CPT/HCPCS: 36415; 80048; 80061; 82306; 82607; 82746; 83036; 84443; 84450; 84460; 85025

== ENCOUNTER 2024-07-04 08:23 | Day surgery (SDC) | payer BC, SELFPAY ==
--- NOTE | 2024-01-24 12:09 | HO.ANESPROP2 ---
HPI - Anesthesia Eval Consult details Narrative: 53yo M for Colonoscopy PMFSH Active Problems Active Problems: All Active Problems Anosmia (Acute) Nasal congestion (Acute) Nasal polyp (Acute) Allergic rhinitis (Acute) Malaise and fatigue (Acute) Essential hypertension (Acute) Dyslipidemia (Acute) Encounter for screening for malignant neoplasm of colon (Acute) Past Medical History Medical History (Updated 06/18/23 @ 11:50 by Annelise Atkinson MD) Anosmia Nasal congestion Nasal polyp Allergic rhinitis Malaise and fatigue Encounter for screening for malignant neoplasm of colon Elevated liver enzymes Obesity (BMI 30.0-34.9) Essential hypertension Dyslipidemia Surgical History Surgical History H/O eye surgery Social History Social History Housing: House Patient Tobacco Use Status: Never used Tobacco e-Cigarette/Vaping Use: Never Used service: No Current occupational status: employed Cognitive needs: No Hearing needs: No Vision needs: Yes Meds Allergies Allergy/AdvReac Type Severity Reaction Status Date / Time No Known Allergies Allergy Verified 07/09/23 14:50 Assessment and Plan Assessment Anesthesia Assessment: Chart Reviewed
[2024-06-30 06:57] VITALS: BMI 32.7
--- NOTE | 2024-07-04 08:44 | P.HPSUR_ITS ---
Pre-Procedural Eval Section A - 24 Hr Update-Section A only Date of Service: 07/04/24 Section B - Complete if H&P > 30 days Chief Complaint: Encounter for screening for malignant neoplasm of Relevant Family History (Specify if Yes): No Relevant Social History: None Present Medications: see Short Stay Collaborative assessment Medical History: Significant History (Anosmia Nasal congestion Nasal polyp All ergic rhinitis Malaise and fatigue Encounter for screening for malignant neoplasm of colon Elevated liver enzymes Obesity (BMI 30.0-34.9) Essential hypertension Dyslipidemia) History of Previous Operations: Relevant previous surgery/procedure and date(s) (H/O eye surgery) Allergies: Allergies Allergy/AdvReac Type Severity Reaction Status Date / Time No Known Allergies Allergy Verified 07/04/24 08:32 Review of Systems Sugical H&P ROS: Negative: Constitution, Cardiovascular, Respiratory, Neurological, Psychiatric, Hem-Onc, Allergic/Immunologic, Gastrointestinal, Genitourinary, Musculoskeletal, Integumentary, Endocrine and Eyes/Ears/Nose/Throat Exam Surgical H&P Exam: Normal: HEENT, Normal: Heart, Normal: Lungs, Normal: Extremities, Normal: Abdomen, Normal: Skin and Normal: Neurological Plan Diagnosis/Plan: Unchanged I have reviewed the history and physical and performed a pertinent physical examination on my patient. No changes have occurred unless specified. Time Spent With Patient Time: Total time managing care of this patient today ____ minutes.
[2024-07-04 08:46] VITALS: BP 150/92; PULSE 82; RESP 16; TEMP 36.2; O2SAT 95; BMI 33.1
--- NOTE | 2024-07-04 08:50 | HO.ANESPROP2 ---
Documented by User: Kailey Su NP 06/30/24 10:26 HPI - Anesthesia Eval Consult details Narrative: 53yo M for Colonoscopy [facility] Active Problems Active Problems: All Active Problems Anosmia (Acute) Nasal congestion (Acute) Nasal polyp (Acute) Allergic rhinitis (Acute) Malaise and fatigue (Acute) Essential hypertension (Acute) Dyslipidemia (Acute) Encounter for screening for malignant neoplasm of colon (Acute) Past Medical History Medical History (Updated 06/18/23 @ 11:50 by Annelise Atkinson MD) Anosmia Nasal congestion Nasal polyp Allergic rhinitis Malaise and fatigue Encounter for screening for malignant neoplasm of colon Elevated liver enzymes Obesity (BMI 30.0-34.9) Essential hypertension Dyslipidemia Surgical History Surgical History H/O eye surgery Social History Social History Housing: House Patient Tobacco Use Status: Never used Tobacco e-Cigarette/Vaping Use: Never Used Use of substances other than those prescribed or required for medical reasons: No Are you DNR?: No Advance Directives: No Advance Directives Information Provided: Yes service: No Current occupational status: employed Cognitive needs: No Hearing needs: No Vision needs: Yes Meds Allergies Allergy/AdvReac Type Severity Reaction Status Date / Time No Known Allergies Allergy Verified 07/04/24 08:32 Home Medications ?Medication ?Instructions ?Recorded ?Confirmed ?Last Taken ?Type Albina Allergy 180 mg PO DAILY PRN environmental 07/04/24 07/04/24 Unknown History allergy relief Exam Height,Weight and Vital Signs: Height 5 ft 8 in Weight 97.522 kg Assessment and Plan Assessment Anesthesia Assessment: Chart Reviewed Documented by User: Trina Arellano DO 07/04/24 08:54 PMFSH Past Medical History Medical History (Updated 06/18/23 @ 11:50 by Annelise Atkinson MD) Anosmia Nasal congestion Nasal polyp Allergic rhinitis Malaise and fatigue Encounter for screening for malignant neoplasm of colon Elevated liver enzymes Obesity (BMI 30.0-34.9) Essential hypertension Dyslipidemia Family History Family history of problems with anesthesia: No Surgical History Surgical History H/O eye surgery History of Problems with Anesthesia: No Social History Social History Housing: House Patient Tobacco Use Status: Never used Tobacco e-Cigarette/Vaping Use: Never Used Use of substances other than those prescribed or required for medical reasons: No Are you DNR?: No Advance Directives: No Advance Directives Information Provided: Yes service: No Current occupational status: employed Cognitive needs: No Hearing needs: No Vision needs: Yes Meds Allergies Allergy/AdvReac Type Severity Reaction Status Date / Time No Known Allergies Allergy Verified 07/04/24 08:32 Home Medications ?Medication ?Instructions ?Recorded ?Confirmed ?Last Taken ?Type Albina Allergy 180 mg PO DAILY PRN environmental 07/04/24 07/04/24 Unknown History allergy relief Exam Exam Date and Time: 07/04/24 0850 Height,Weight and Vital Signs: Height 5 ft 8 in Weight 97.522 kg Vital Signs Temperature 97.2 F 07/04/24 08:46 Pulse Rate 82 07/04/24 08:46 Respiratory Rate 16 07/04/24 08:46 Blood Pressure 150/92 H 07/04/24 08:46 Pulse Oximetry 95 07/04/24 08:46 Oxygen Delivery Method Room Air 07/04/24 08:46 Temperature 97.2 F 07/04/24 08:46 Pulse Rate 82 07/04/24 08:46 Respiratory Rate 16 07/04/24 08:46 Blood Pressure 150/92 H 07/04/24 08:46 Pulse Oximetry 95 07/04/24 08:46 Oxygen Delivery Method Room Air 07/04/24 08:46 Airway Mallampati Class: II TM Dist: >3cm Neck ROM: Full Loose/Missing/Broken Teeth: No (patient denies any loose or broken teeth) Heart: S1S2 Lungs: CTAB Assessment and Plan Assessment Anesthesia Assessment: Anesthesia Plan Discussed and Chart Reviewed Final Anesthetic Review Family History of Problems with Anesthesia: No History of Problems with Anesthesia: No NPO: Yes ASA Class: II Final Preanesthetic Review: No Changes in Pt Med Stat, Meds/Allgs Chart Reviewed, Consent Obtained/Reviewed and Anes Risks/Benef Reviewed Patient Risk: Low Procedure Risk: Low Anesthetic Plan Anesthetic Plan: MAC: and Agree w/ Assess. and Plan Disposition: Standard PACU
--- NOTE | 2024-07-04 09:40 | P.OPN-COLO_ITS ---
Colonoscopy Operative Note Operative Note Date of Service: 07/04/24 Narrative: Operative Information Procedure Description: Colonoscopy Indication: screening Anesthesia: MAC COLONOSCOPY Instrument: Olympus variable stiffness pediatric scope 190L Colonoscopy Monitoring: Vital signs and clinical assessment, continuous EKG monitoring, Pulse oximetry, Carbon Dioxide monitoring and blood pressure monitoring were done throughout the procedure. Colon withdrawal time was 11 minutes. Procedure: The patient was placed in the left lateral decubitis position and pre-procedure medications were administered. After a digital rectal examination of the ano-rectum, the video colonoscope was inserted into the rectum and advanced through the colon to the cecum/TI. The colonoscope was slowly withdrawn in a retrograde panoramic fashion and the colon mucosa was carefully examined including a retroflexed view of the rectum. Findings and interventions are described below. Procedure Difficulty: moderate- pressure applied Findings: Terminal Ileum-normal Cecum:normal Ascending Colon: normal Transverse Colon -normal Descending Colon:normal Sigmoid Colon: normal Rectum: Retroflexion with small internal hemorrhoids seen, grade I, x 2 sessile polyps 5-8 mm removed with cold snare Anorectum - normal Intervention: cold snare Colon preparation: [place] Bowel Preparation Scale Right colon; 2 Transverse colon: 2 Left colon; 2 (0 = Unprepared colon segment with mucosa not seen due to solid stool that cannot be cleared. 1 = Portion of mucosa of the colon segment seen, but other areas of the colon segment not well seen due to staining, residual stool and/or opaque liquid. 2 = Minor amount of residual staining, small fragments of stool and/or opaque liquid, but mucosa of colon segment seen well. 3 = Entire mucosa of colon segment seen well with no residual staining, small fragments of stool or opaque liquid) Impression and Post Procedure Diagnosis: colon polyps internal hemorrhoids Plan: High fiber diet leaflet Avoid straining at stool, epsom salts and sitz bath, anusol supps or cream Repeat Colonoscopy in 5-7 years if adenomatous polyps, 10 yrs if hyperplastic or earlier if clinically indicated Above findings were reviewed with the patient and relevant handouts were provided if indicated.
[2024-07-04 09:47] VITALS: BP 138/88; PULSE 95; RESP 16; TEMP 36.7; O2SAT 95
[2024-07-04 10:02] VITALS: BP 146/84; PULSE 80; RESP 16; TEMP 36.7; O2SAT 98
== END 2024-07-04 10:24 | disposition home or self-care (01) ==
PROVIDERS: PCP Internal Medicine; Visit Provider Internal Medicine Gastroenterology
PROC: 0DJD8ZZ Inspection of Lower Intestinal Tract, Via Natural or Artificial Opening Endoscopic (ICD-10-PCS; CPT 45378; principal; 2024-07-04 09:10)
DX: Z12.11 Encounter for screening for malignant neoplasm of colon (principal); K62.1 Rectal polyp; K64.0 First degree hemorrhoids; J30.9 Allergic rhinitis, unspecified; R43.0 Anosmia; I10 Essential (primary) hypertension; E78.5 Hyperlipidemia, unspecified; R53.81 Other malaise; R74.8 Abnormal levels of other serum enzymes; E66.9 Obesity, unspecified; Z68.32 Body mass index [BMI] 32.0-32.9, adult
CPT/HCPCS: 45385; 88305; J2003; J2704

== ENCOUNTER → 2024-07-04 08:23 | Outpatient (BNV) | payer BC, SELFPAY | PROVIDERS: PCP Internal Medicine; Visit Provider Internal Medicine Gastroenterology | DX: Z12.11 Encounter for screening for malignant neoplasm of colon (principal); K62.1 Rectal polyp; K64.0 First degree hemorrhoids | CPT/HCPCS: 45385 ==

== ENCOUNTER 2024-07-26 14:06 | Outpatient (AMB) | payer BC, SELFPAY ==
[2024-07-26 14:10] VITALS: BP 142/80; PULSE 82; O2SAT 97; BMI 33.1
--- NOTE | 2024-07-26 14:10 | MHC.PC.OV ---
Vital Signs 07/26/24 14:10 Height 5 ft 8 in Weight 218 lb BMI 33.1 BP 142/80 H Blood Pressure Location Rt brachial Position Sitting Pulse 82 Pulse Source Pulse Oximeter Pulse Oximetry (%) 97 Intake Visit Reasons: PE Intake Note: Pt is here for PE Rehab Care Assistant Required: No Accompanied by: Self / Same As Patient Allergies No Known Allergies Allergy (Verified 07/26/24 14:11) Tobacco use date assessed: 07/26/24 Dental Screening Dental Screen Date: 07/26/24 Did you have a dental visit in the last 12 months?: Yes Did you have a dental problem in the last 6 months where you did not have access to dental care?: No Was dental information given to patient?: Patient has dentist HPI HPI Comments History of Present Illness Details 53 y/o male patient who presents to the clinic for PE. Pt of Dr. Atkinson. Pmhx significant for HTN, chronic Rhinitis, Dyslipidemia. C/o Chronic Rhinitis, getting worse. Saw ENT who informed him that he had Polyps. He was [employer] Special[employer] Dr. Swartz who gave him Steroid injections with minimal relief. Pt has not followed up either one in over one year or more. Asking if he can be referred back. C/o right sided of body numbness. No clear etiology at this point. Advised him that will order basic labs to r/o Vitamin deficiency, Anemia and Ferritin. Had Colonoscopy: 06/2024. WNL. [facility] Medical History (Updated 07/26/24 @ 14:42 by Zuleika Montero NP) Peripheral neuropathy Anosmia Nasal congestion Nasal polyp Allergic rhinitis Malaise and fatigue Encounter for screening for malignant neoplasm of colon Elevated liver enzymes Obesity (BMI 30.0-34.9) Essential hypertension Dyslipidemia Surgical History H/O eye surgery Social History Housing: House Patient Tobacco Use Status: Never used Tobacco e-Cigarette/Vaping Use: Never Used service: No Current occupational status: employed Cognitive needs: No Hearing needs: No Vision needs: Yes Questionnaire PHQ-9 Over the last 2 weeks, how often have you been bothered by any of the following problems? 1. Little interest or pleasure in doing things: not at all 2. Feeling down, depressed, or hopeless: not at all 3. Trouble falling or staying asleep, or sleeping too much: several days 4. Feeling tired or having little energy: several days 5. Poor appetite or overeating: several days 6. Feeling bad about yourself - or that you are a failure or have let yourself or your family down: not at all 7. Trouble concentrating on things, such as reading the newspaper or watching television: not at all 8. Moving or speaking so slowly that other people could have noticed. Or the opposite - being so fidgety or restless that you have been moving around a lot more than usual: not at all 9. Thoughts that you would be better off or of hurting yourself in some way: not at all Total score: 3 Depression Screening Interpretation: Negative Depression Screening Done: Yes 82864 - PHQ-9 Billing: Yes Source: Developed by Drs. Tapan Dwyer, Peggy Heath, Abhijit Wallace and colleagues, with an educational beatrice from [employer]. Thrive Questionnaire Date Thrive assessed: 07/26/24 I am a: Patient What is your living situation today?: I have a steady place to live Within the past 12 months, did the food you bought not last and you didn't have the money to get more?: Never true Within the past 12 months, did you worry whether your food would run out before you got money to buy more?: Never true Do you have trouble paying for medicines?: No Do you have trouble getting transportation to medical appointments?: No Do you have trouble paying your heating and electricity bill?: No Do you have trouble taking care of your child, family member or friend?: No Do you have trouble with day-to-day activities such as bathing, preparing meals, shopping, managing finances, etc.?: No Are you currently unemployed and looking for a job?: No Are you interested in more education?: No Please select the resources that you would like help with: None Currently or been in a relationship where the following occur: No concerns reported THRIVE Score: 0 AUDIT C Alcohol Use Questionnaire (AUDIT-C) 1. How often do you have a drink containing alcohol?: Never 3. How often do you have six or more drinks on one occasion?: Never Total Score: 0 Score Reviewed/Action Taken: Yes FIDENCIO-7 AMB Questionnaire FIDENCIO-7 Date FIDENCIO - 7 assessed: 07/26/24 Feeling nervous, anxious, or on edge: 1 = Several days Not being able to stop or control worryin = Not at all Worrying too much about different things: 1 = Several days Trouble relaxin = Not at all Being so restless that it is hard to sit still: 0 = Not at all Becoming easily annoyed or irritable: 1 = Several days Feeling afraid as if something awful might happen: 0 = Not at all Total FIDENCIO-7 score (0-4 normal; 5-9 mild; 10-14 moderate; 15-21 severe): 3 Source: Developed by Drs. Tapan Dwyer, Peggy Heath, Abhijit Wallace and colleagues, with an educational beatrice from [employer]. FIDENCIO-7 Assessment Billing FIDENCIO-7 Assessment Tool: FIDENCIO-7 Assessment 71922 Review of Systems Const All systems reviewed & are unremarkable except as noted in HPI and below Physical exam (Primary Care) Vital Signs: Last Vital Signs Pulse 82 07/26/24 14:10 BP 142/80 H 07/26/24 14:10 Pulse Ox 97 07/26/24 14:10 BMI result Body Mass Index 33.1 Tobacco/Smoking Status: Tobacco use Status Tobacco use date assessed 07/26/24 07/26/24 14:12 Patient Tobacco Use Status Never used Tobacco 07/26/24 14:12 e-Cigarette/Vaping Use Never Used 07/26/24 14:12 PHQ-9: PHQ-9 Score PHQ-9: Total score 3 07/26/24 14:26 Depression Screening Interpretation: Negative Thrive Assessment: Date of Thrive Assessment Date Thrive assessed 07/26/24 07/26/24 14:12 Currently or been in a relationship where the following occur: No concerns reported Const General: cooperative, comfortable and no acute distress Nutritional Appearance: obese Orientation/consciousness: patient oriented x3 HENMT Head: Yes normocephalic Ears: external ears normal and TM's normal bilaterally General nose exam: Normal external nose present Face and sinus: Yes sinuses nontender Mouth: moist mucous membranes Throat: Yes tonsils normal and Yes uvula midline Eyes Pupils: Equal, round and reactive pupils present EOM: EOMs intact bilaterally Direct Ophthalmoscopy: normal light reflex Neck Neck: Yes full ROM and Yes no lymphadenopathy Thyroid: Thyroid normal Resp Effort & Inspection: normal respiratory effort and able to speak in complete sentences Auscultation: clear to auscultation bilaterally, no crackles, no rales, no rhonchi and no wheezes Cardio Heart sounds: S1 normal heart sound present and S2 normal heart sound present GI Inspection: Yes Abdominal panniculus present and Yes obesity Palpation (GI): Soft to palpation, not firm, nontender, no guarding, not rigid and No hepatosplenomegaly present Auscultation: normal bowel sounds Rectal Exam - Male: Yes deferred General: Yes no CVA tenderness and Yes deferred Back/Spine/Pelvis Back: no CVA tenderness Skin General skin exam: no rashes or lesions noted Neuro General: patient oriented x3, gait normal, tone normal, moves all extremities, Normal light touch and pain sensation and CN's II-XI intact bilaterally Cranial nerves: Yes CN's II-XII intact bilaterally, Yes Equal, round and reactive pupils present and Yes Bilaterally intact EOM present Motor exam (neuro): 5/5 motor strength present throughout Extrem General: Yes full ROM and Yes capillary refill normal Psych Speech and movement: Normal speech and movement present Coding Level of Care Code Est Pt Prev Care 40-64y(37040) Diagnoses Encounter for routine adult health examination without abnormal findings Z00.00 Allergic rhinitis, unspecified seasonality, unspecified trigger J30.9 Allergic rhinitis seasonality: unspecified Allergic rhinitis trigger: unspecified Essential hypertension I10 Dyslipidemia E78.5 Additional Codes FIDENCIO-7 Assessment Billing - FIDENCIO-7 Assessment Tool: FIDENCIO-7 Assessment 66368 ([id number]) PHQ-9 - 28229 - PHQ-9 Billing: Yes ([id number]) Assessment & Plan Assessment & Plan (1) Encounter for routine adult health examination without abnormal findings: Code(s): Z00.00 - Encounter for general adult medical examination without abnormal findings Plan: WNL (2) Allergic rhinitis: Code(s): J30.9 - Allergic rhinitis, unspecified Category: Medical Qualifiers: Allergic rhinitis seasonality: unspecified Allergic rhinitis trigger: unspecified Qualified Code(s): J30.9 - Allergic rhinitis, unspecified Plan: Placed referral back to ENT (3) Essential hypertension: Code(s): I10 - Essential (primary) hypertension Category: Medical Plan: Well controlled. (4) Dyslipidemia: Code(s): E78.5 - Hyperlipidemia, unspecified Category: Medical Plan: Lifestyle changes, healthy diet, weight loss. Orders: Orders Vitamin D 1,25 dihydroxy Today G62.9 - Polyneuropathy, unspecified TSH reflex Free T4 Today G62.9 - Polyneuropathy, unspecified Vitamin B12 and Folate Today G62.9 - Polyneuropathy, unspecified Ferritin Today G62.9 - Polyneuropathy, unspecified Referrals Allergy & Immunology Referral J30.9 - Allergic rhinitis, unspecified, J33.9 - Nasal polyp, unspecified Ear/Nose/Throat Referral J30.9 - Allergic rhinitis, unspecified, J33.9 - Nasal polyp, unspecified
== END 2024-07-26 14:43 | disposition home or self-care (01) ==
LOC: HO.HMCC 14:07
PROVIDERS: PCP Internal Medicine; Visit Provider Nurse Practitioner Family
DX: Z00.00 Encounter for general adult medical examination without abnormal findings (principal); J30.9 Allergic rhinitis, unspecified; I10 Essential (primary) hypertension; E78.5 Hyperlipidemia, unspecified

== ENCOUNTER 2024-07-26 14:06 | Outpatient (REF) | payer BC, SELFPAY ==
[2024-07-26 17:23] LABS: Ferritin 405 ng/mL (20-250); TSH reflex Free T4 1.93 uIU/mL (0.32-4.0)
[2024-07-26 17:29] LABS: Folate 8.4 ng/mL (> or = 4.0); Vitamin B12 647 pg/mL (200-900)
[2024-07-31 17:59] LABS: VITAMIN D (1,25 OH) D3 40 pg/mL; Vit D (1,25-Dihydroxy) Total 40 pg/mL (18-72); Vitamin D (1,25 OH) D2 <8 pg/mL
== END 2024-07-26 14:07 | disposition home or self-care (01) ==
LOC: HO.HMGCLDS 14:06
PROVIDERS: PCP Internal Medicine; Visit Provider Nurse Practitioner Family
DX: Z00.00 Encounter for general adult medical examination without abnormal findings (principal); G62.9 Polyneuropathy, unspecified; J30.9 Allergic rhinitis, unspecified; I10 Essential (primary) hypertension; E78.5 Hyperlipidemia, unspecified
CPT/HCPCS: 36415; 82607; 82652; 82728; 82746; 84443; 96127

== ENCOUNTER 2024-11-05 19:12 | Emergency (ER) | payer BC, SELFPAY ==
--- NOTE | ~2024-11-05 | CT_ITS ---
CLINICAL HISTORY: Stroke Protocol - left sided weakness CT angiography head and neck with contrast. 3D Postprocessing. Comparison: CT/SR - CT HEAD FOR STROKE - 11/05/24 23:[address] - CT ANGIO HEAD NECK - 01/08/21 20:24 EDT Findings: Incidental note of bovine arch anatomy. Bilateral cervical carotid arteries are patent. 90% or greater stenosis of the left internal carotid artery origin. No stenosis of the right internal carotid artery. Bilateral vertebral arteries are patent. Kdtciv-sg-[place] is normal. No large vessel occlusion. No loss of edmondson-white differentiation. No abnormal intracranial enhancement. The visualized thyroid gland is unremarkable. No cervical mass or fluid collection. Lung apices clear. No acute fracture. Diffuse paranasal sinus disease. IMPRESSION: 90% or greater stenosis of the left internal carotid artery origin. No intracranial large vessel occlusion. This document has been electronically signed by: Colby Hyde MD on 11/06/2024 00:36:09
--- NOTE | ~2024-11-05 | CT_ITS ---
CLINICAL HISTORY: Stroke Protocol - left sided weakness, delay in start due to nursing protoc CT head without contrast Comparison: CT - CT ANGIO HEAD NECK - 01/08/21 20:24 EDT Findings: No intra-axial mass, midline shift, hydrocephalus, or acute hemorrhage. No significant atrophy-like change or white matter disease. Diffuse mucosal thickening of the paranasal sinuses. Fluid in the left sphenoid sinus. Right mastoid effusion. The orbits are within normal limits. There is no acute fracture. IMPRESSION: 1. No acute intracranial findings. This document has been electronically signed by: Colby Hyde MD on 11/05/2024 23:54:27
--- NOTE | ~2024-11-05 | XR_ITS ---
CLINICAL HISTORY: cp 2 view chest x-ray Comparison: None Findings: The lungs are clear. Normal size heart. No acute fracture. IMPRESSION: 1. No acute findings. This document has been electronically signed by: Dk Barton MD on 11/05/2024 20:15:22
--- NOTE | 2024-11-05 19:32 | ED.NEUROSD ---
HPI - Neuro Symptoms/Deficit General Chief Complaint: General Medical Stated Complaint: L arm numbness going into fingers, L side ear pain Time Seen by Provider: 11/05/24 23:21 Source: patient Mode of arrival: ambulatory Limitations: no limitations History of Present Illness ED Provider: HPI Narrative: Patient's history of hypertension high cholesterol went to bed at 23:30 yesterday normal woke up at 05:00 today noticed decreased feeling in the left hand 4th and 5th fingers feels his left arm is heavy but able to use was snow blowing all day no headache no nausea no vomiting no other weakness no speech problem also had intermittent chest pain Related Data Home Medications ?Medication ?Instructions ?Recorded ?Confirmed Albina Allergy 180 mg PO DAILY PRN environmental 07/04/24 07/26/24 allergy relief Previous Rx's ?Medication ?Instructions ?Recorded azelastine 137 mcg (0.1 %) nasal 2 spray intranasal BID #30 mL 09/24/23 spray atorvastatin 40 mg tablet 40 mg PO DAILY #90 tabs 06/26/24 lisinopril 10 mg tablet 10 mg PO DAILY #90 tabs 06/26/24 montelukast 10 mg tablet 10 mg PO DAILY #90 tabs 06/26/24 aspirin 81 mg tablet,delayed 81 mg PO DAILY #30 tabs 11/06/24 release Allergies Allergy/AdvReac Type Severity Reaction Status Date / Time No Known Allergies Allergy Verified 11/05/24 19:37 Review of Systems Review of Systems: Yes all other systems are reviewed and are negative PMFSH Past Medical History Medical History Peripheral neuropathy Anosmia Nasal congestion Nasal polyp Allergic rhinitis Malaise and fatigue Encounter for screening for malignant neoplasm of colon Elevated liver enzymes Obesity (BMI 30.0-34.9) Essential hypertension Dyslipidemia Surgical History H/O eye surgery Social History Social History Housing: House Patient Tobacco Use Status: Never used Tobacco Smoked in Last 30 Days: No e-Cigarette/Vaping Use: Never Used Use of substances other than those prescribed or required for medical reasons: No Advance Directives: No Advance Directives Information Provided: No service: No Current occupational status: employed Cognitive needs: No Hearing needs: No Vision needs: Yes Physical Exam Vital Signs: Vital Signs: Last Vital Signs Temp 98.2 F 11/06/24 01:40 Pulse 78 11/06/24 01:40 Resp 18 11/06/24 01:40 BP 168/96 H 11/06/24 01:40 Pulse Ox 98 11/06/24 01:40 O2 Del Method Room Air 11/06/24 01:40 BMI result Body Mass Index 32.3 Appearance: Alert. Oriented X3. No acute distress. Eyes: PERRLA, No Nystagmus ENT: Pharynx normal. Oral Mucosa moist Neck: Normal inspection. Neck supple. CVS: Normal heart rate and rhythm. Pulses normal. Respiratory: No respiratory distress. Equal air entry bilateral, no wheezing/rales/rhonchi Abdomen: Soft and nontender. Bowel sounds are present, no mass palpable, no CVA tenderness Skin: Skin warm and dry. Normal skin color. Normal skin turgor. Extremities: No lower extremity edema. No calf tenderness Neuro: Oriented X 3. Left arm 5 /5 decreased sensation to touch and pinprick left hand 4th and 5th finger.No cerebellar signs , cranial nerves II-XII intact Course Course Course Narrative: This is a Rapid Medical Exam performed in triage by Linda Mancera PA-C. Full HPI, ROS and PE to be performed by primary ED provider. 54yo M w/PMHx HTN, HLD, presenting to the ED c/o LUE numbness limb w/finger numbness, jaw numbness & L ear pain. Also reports L chest heaviness. CP is intermittent. Admits woke up at 5AM. denies SOB, AC use PE: L TM wnl, No focal deficits, LUE NV intact Plan: EKG, labs, CXR, viral testing Medications Administered Discontinued Medications Generic Name Dose Route Start Last Admin Trade Name Ivanq PRN Reason Stop Dose Admin Aspirin 324 mg 11/06/24 00:46 11/06/24 01:39 Aspirin 81 Mg Tab.Chew PO 11/06/24 00:47 324 mg ONCE ONE Administration Iohexol 75 ml 11/05/24 23:47 11/05/24 23:48 Iohexol 350 Mg/Ml 100 Ml Infus..Btl IV 11/05/24 23:48 75 ml ONCE ONE Administration Medical Decision Making Medical Decision Making [facility] Narrative: Patient with cervical radiculopathy C7-C8 in involving the left 4th and 5th finger with decreased sensation to light touch and pinprick no motor weakness noticed [place] 2+ no neck pain CTa angio head and neck showed 90% stenosis of the left internal carotid artery with no intracranial stenosis patient's symptoms does not match with the CT findings. For now will start the patient on aspirin advised to follow with neurologist patient's may need MRI to rule out TIAs Differential Diagnosis Differential Diagnoses: The differential diagnosis associated with the presentation includes Admission/Observation Consideration of admission/observation: Escalation of care including admission/observation considered Lab Data [facility] Lab Attestation statement: I reviewed the patient's lab results. 11/05/24 23:34 11/05/24 23:34 Labs: Lab Results 11/05/24 11/05/24 11/05/24 Range/Units 19:52 23:34 23:38 WBC 12.6 H 11.8 H (4.8-10.8) X10*3/uL RBC 4.96 5.27 (4.60-5.80) X10*6/uL Hgb 14.9 15.8 (14.0-18.0) g/dl Hct 41.7 L 44.3 (42.0-52.0) % MCV 84.1 84.1 (80.0-98.0) fL MCH 30.0 30.0 (27.0-33.0) pg MCHC 35.7 35.7 (31.0-36.0) g/dl RDW 13.4 13.4 (11.0-16.0) % Plt Count 347 338 (160-400) X10*3/uL MPV 10.2 10.2 (9.4-12.4) fL Immature Gran % (Auto) 0.2 0.3 (0.0-0.4) % Neut % (Auto) 59.5 54.7 (45-73) % Lymph % (Auto) 28.0 29.4 (20-40) % [place] % (Auto) 6.8 9.6 (2-11) % Eos % (Auto) 4.7 H 5.3 H (0-4) % Baso % (Auto) 0.8 0.7 (0-2) % Lymph # (Auto) 3.5 3.5 (1.2-4.9) X10*3/uL [place] # (Auto) 0.9 1.1 (0.1-1.2) X10*3/uL Eos # (Auto) 0.6 H 0.6 H (0.0-0.4) X10*3/uL Baso # (Auto) 0.1 0.1 (0.0-0.2) X10*3/uL Abs Immat Gran (auto) 0.02 0.03 (0.00-0.03) X10*3/uL Absolute Neuts (auto) 7.5 6.5 (2.0-8.3) x10*3/uL Absolute Nucleated RBC 0.000 0.000 (0.0-0.012) X10*3/uL Nucleated RBC % (auto) 0.0 0.0 (0.0-0.2) /100WBC PT 10.8 L 10.7 L (10.9-12.4) SEC Whole Blood PT (11.1-13.5) sec INR 0.9 0.9 (0.9-1.1) Whole Blood INR (0.9-1.1) APTT 26.2 (26.0-36.8) SEC Sodium 138 141 (135-145) mmol/L Potassium 3.3 D 3.8 (3.3-5.1) mmol/L Chloride 107 107 (96-108) mmol/L Carbon Dioxide 20 L 25 (22-29) mmol/L Anion Gap 14 13 (12-20) BUN 9 9 (9-16) mg/dL Creatinine 0.80 0.80 (0.5-1.4) mg/dL Estim Creat Clear Calc 121.6 121.6 Estimated GFR > 60 > 60 POC Glucose 101 (60-115) mg/dL Random Glucose 150 H 94 (60-115) mg/dL Calcium 9.2 9.3 (8.4-10.2) mg/dL Magnesium 1.8 (1.6-2.6) mg/dL Total Bilirubin 0.7 0.9 (0.0-1.0) mg/dL Direct Bilirubin 0.2 (0.0-0.5) mg/dL AST 48 H 52 H (5-37) U/L ALT 58 H 58 H (0-40) U/L Alkaline Phosphatase 120 H 124 H (39-117) U/L Troponin I High Sens < 2.7 < 2.7 (<3.5-35.0) ng/L B-Natriuretic Peptide < 10 (<100) pg/mL Total Protein 7.4 7.7 (6.5-8.0) g/dL Albumin 4.4 4.4 (3.5-5.0) g/dL Triglycerides 146 (<150) mg/dL Cholesterol 195 (<200) mg/dL LDL Cholesterol, Calc 127 H (<100) mg/dL HDL Cholesterol 39 L (>40) mg/dL Influenza Type A (PCR) NEGATIVE (Negative) Influenza Type B (PCR) NEGATIVE (Negative) RSV RNA Qual (PCR) NEGATIVE (Negative) SARS-CoV-2 RNA (RT-PCR) NEGATIVE (Negative) 11/05/24 Range/Units 23:39 WBC (4.8-10.8) X10*3/uL RBC (4.60-5.80) X10*6/uL Hgb (14.0-18.0) g/dl Hct (42.0-52.0) % MCV (80.0-98.0) fL MCH (27.0-33.0) pg MCHC (31.0-36.0) g/dl RDW (11.0-16.0) % Plt Count (160-400) X10*3/uL MPV (9.4-12.4) fL Immature Gran % (Auto) (0.0-0.4) % Neut % (Auto) (45-73) % Lymph % (Auto) (20-40) % [place] % (Auto) (2-11) % Eos % (Auto) (0-4) % Baso % (Auto) (0-2) % Lymph # (Auto) (1.2-4.9) X10*3/uL [place] # (Auto) (0.1-1.2) X10*3/uL Eos # (Auto) (0.0-0.4) X10*3/uL Baso # (Auto) (0.0-0.2) X10*3/uL Abs Immat Gran (auto) (0.00-0.03) X10*3/uL Absolute Neuts (auto) (2.0-8.3) x10*3/uL Absolute Nucleated RBC (0.0-0.012) X10*3/uL Nucleated RBC % (auto) (0.0-0.2) /100WBC PT (10.9-12.4) SEC Whole Blood PT 11.3 (11.1-13.5) sec INR (0.9-1.1) Whole Blood INR 0.9 (0.9-1.1) APTT (26.0-36.8) SEC Sodium (135-145) mmol/L Potassium (3.3-5.1) mmol/L Chloride (96-108) mmol/L Carbon Dioxide (22-29) mmol/L Anion Gap (12-20) BUN (9-16) mg/dL Creatinine (0.5-1.4) mg/dL Estim Creat Clear Calc Estimated GFR POC Glucose (60-115) mg/dL Random Glucose (60-115) mg/dL Calcium (8.4-10.2) mg/dL Magnesium (1.6-2.6) mg/dL Total Bilirubin (0.0-1.0) mg/dL Direct Bilirubin (0.0-0.5) mg/dL AST (5-37) U/L ALT (0-40) U/L Alkaline Phosphatase (39-117) U/L Troponin I High Sens (<3.5-35.0) ng/L B-Natriuretic Peptide (<100) pg/mL Total Protein (6.5-8.0) g/dL Albumin (3.5-5.0) g/dL Triglycerides (<150) mg/dL Cholesterol (<200) mg/dL LDL Cholesterol, Calc (<100) mg/dL HDL Cholesterol (>40) mg/dL Influenza Type A (PCR) (Negative) Influenza Type B (PCR) (Negative) RSV RNA Qual (PCR) (Negative) SARS-CoV-2 RNA (RT-PCR) (Negative) Independent Interpretation I performed an independent interpretation of an: EKG Interpretation: Normal sinus rhythm poor progression of R-wave ventricular rate 82 beats per minute normal interval normal axis no acute STT wave changes no acute ischemia Radiology Impression Discussion of test interpretation with radiology: I have reviewed the radiologist's reading. Radiologist Impression: [address] [address] [address] Scan Report Signed Patient: Mariano Spence MR#: [id number] : 1970 Acct:[id number] Age/Sex: 54 / M ADM Date: 11/05/24 Loc: HO.ED Attending Dr: Ordering Physician: Louis Thomas MD Date of Service: 11/05/24 Procedure(s): CT angio head neck STROKE Accession Number(s): [id number] cc: Annelise Atkinson MD; Louis Thomas MD~ Report Number: [id number]: Total DLP = 717.00 mGy-cm CLINICAL HISTORY: Stroke Protocol - left sided weakness CT angiography head and neck with contrast. 3D Postprocessing. Comparison: CT/SR - CT HEAD FOR STROKE - 11/05/24 23:[address] - CT ANGIO HEAD NECK - 01/08/21 20:24 EDT Findings: Incidental note of bovine arch anatomy. Bilateral cervical carotid arteries are patent. 90% or greater stenosis of the left internal carotid artery origin. No stenosis of the right internal carotid artery. Bilateral vertebral arteries are patent. Herdel-gg-Psfiax is normal. No large vessel occlusion. No loss of edmondson-white differentiation. No abnormal intracranial enhancement. The visualized thyroid gland is unremarkable. No cervical mass or fluid collection. Lung apices clear. No acute fracture. Diffuse paranasal sinus disease. IMPRESSION: 90% or greater stenosis of the left internal carotid artery origin. No intracranial large vessel occlusion. This document has been electronically signed by: Colby Hyde MD on 11/06/2024 00:36:09 Dictated By: Colby Hyde MD Signed By: <Electronically signed by Colby Hyde MD in OV> 11/06/24 0037 NIH Stroke Scale Internal: Initial- Upon Arrival Level of Consciousness: Alert Level of Consciousness Questions: Answers both questions correctly Level of Consciousness Commands: Performs both tasks correctly Best Gaze: Normal Visual: No visual loss Facial Palsy: Normal Motor Arm (Right): No drift Motor Arm (Left): No drift Motor Leg (Right): No drift Motor Leg (Left): No drift Limb Ataxia: Absent Sensory: Normal Best Language: No aphasia Dysarthia: Normal Extinction and Inattention: No abnormality Score: 0 Discharge Plan Discharge Clinical Impression: Cervical radiculopathy at C7 Patient Disposition: Home, Self-Care Instructions: Cervical Radiculopathy (ED) Additional Instructions: Likely your symptoms in the left hand is from the nerve involved in your neck area, no signs of stroke seen at this time Take baby aspirin daily Follow up with your PCP/neurologist for further evaluation including MRI Also your right internal carotid arteries is blocked with need to be evaluated by vascular surgeon Prescriptions: New aspirin 81 mg tablet,delayed release (DR/EC) 81 mg PO DAILY Qty: 30 0RF No Action azelastine 137 mcg (0.1 %) aerosol,spray 2 spray intranasal BID Qty: 30 0RF Rx Instructions: administer into each nostril atorvastatin 40 mg tablet 40 mg PO DAILY Qty: 90 1RF lisinopril 10 mg tablet 10 mg PO DAILY Qty: 90 1RF montelukast 10 mg tablet 10 mg PO DAILY Qty: 90 1RF [place] Allergy 180 mg PO DAILY PRN (Reason: environmental allergy relief) Referrals: Christie Limon MD [Physician] - 3 days Interventions: ED Discharge Assessment Last Done: 11/06/24 01:40 Discharge Date/Time: 11/06/24 01:40 Print Language: Chinese
[2024-11-05 19:33] VITALS: BP 155/92; PULSE 92; RESP 16; TEMP 36.5; O2SAT 97; BMI 32.3
--- NOTE | 2024-11-05 19:34 | ECG_ITS ---
Test Reason : CP Blood Pressure : */* mmHG Vent. Rate : 82 BPM Atrial Rate : 82 BPM P-R Int : 158 ms QRS Dur : 94 ms QT Int : 386 ms P-R-T Axes : 41 9 39 degrees QTcB Int : 450 ms Normal sinus rhythm Septal infarct (cited on or before 08-Jan-2021) Abnormal ECG When compared with ECG of 08-Jan-2021 15:45, No significant change was found Referred By: Linda Mancera Electronically Signed By: YOSELIN DODD
[2024-11-05 20:03] LABS: MANUAL DIFF FLAG NO
[2024-11-05 20:05] LABS: Basophils Absolute Auto 0.1 X10*3/uL (0.0-0.2); Basophils Percent Auto 0.8 % (0-2); Eosinophils Absolute Auto 0.6 X10*3/uL (0.0-0.4); Eosinophils Percent Auto 4.7 % (0-4); Hematocrit 41.7 % (42.0-52.0); Hemoglobin 14.9 g/dl (14.0-18.0); Imm Gran Abs Auto 0.02 X10*3/uL (0.00-0.03); Imm Gran Pct Auto 0.2 % (0.0-0.4); Lymphocytes Absolute Auto 3.5 X10*3/uL (1.2-4.9); Mean Corpuscular HGB Conc 35.7 g/dl (31.0-36.0); Mean Corpuscular Volume 84.1 fL (80.0-98.0); Mean Platelet Volume 10.2 fL (9.4-12.4); Monocytes Absolute Auto 0.9 X10*3/uL (0.1-1.2); Monocytes Percent Auto 6.8 % (2-11); Neutrophils Absolute Auto 7.5 x10*3/uL (2.0-8.3); Neutrophils Percent Auto 59.5 % (45-73); Platelet Count 347 X10*3/uL (160-400); Red Blood Count 4.96 X10*6/uL (4.60-5.80); Red Cell Distribution Width 13.4 % (11.0-16.0); White Blood Count 12.6 X10*3/uL (4.8-10.8)
[2024-11-05 20:10] LABS: INTERNATIONAL NORM RATIO 0.9 (0.9-1.1); Prothrombin Time 10.8 SEC (10.9-12.4)
[2024-11-05 20:21] LABS: Alanine Aminotransferase 58 U/L (0-40); Albumin Level 4.4 g/dL (3.5-5.0); Alkaline Phosphatase 120 U/L (39-117); Anion Gap 14 (12-20); Aspartate Amino Transferase 48 U/L (5-37); Bilirubin Direct 0.2 mg/dL (0.0-0.5); Bilirubin Total 0.7 mg/dL (0.0-1.0); Blood Urea Nitrogen 9 mg/dL (9-16); Calcium 9.2 mg/dL (8.4-10.2); Carbon Dioxide 20 mmol/L (22-29); Chloride 107 mmol/L (96-108); Creatinine Clr Calc Pharmacy 121.6; Estimated Glomerular Filt Rate > 60; Glucose Random 150 mg/dL (60-115); Magnesium 1.8 mg/dL (1.6-2.6); Potassium 3.3 mmol/L (3.3-5.1); Sodium 138 mmol/L (135-145); Total Protein 7.4 g/dL (6.5-8.0)
[2024-11-05 20:25] LABS: B Type Natriuretic Peptide < 10 pg/mL (<100)
[2024-11-05 20:34] LABS: Troponin-I High Sensitivity < 2.7 ng/L (<3.5-35.0)
[2024-11-05 20:42] LABS: Influenza A PCR NEGATIVE (Negative); Influenza B PCR NEGATIVE (Negative); Resp Syncy Virus RNA Qual PCR NEGATIVE (Negative); SARS COV2 PCR INHOUSE NEGATIVE (Negative)
[2024-11-05 23:17] VITALS: BP 170/92; PULSE 62; RESP 18; TEMP 36.8; O2SAT 96
--- NOTE | 2024-11-05 23:22 | PC.NURSE ---
notified at this time. pt brought to [id number] from at 2310. found to be hypertensive as documented. pt reports approx 2100 started feeling worsening weakness to L. side, numbness started this AM 0500. weakness noted to LUE & LLE compared to R. side. pt denies ROBERTS/dizziness. no facial droop noted. pt is axox4 speaking full clear sentences, no aphasia/slurred speech noted. pt does report L. ear pain, otherwise denies cp/sob. pt reports was d/t take lisinopril at 2100 but missed dose d/t being in ED. MD currently at bedside.
[2024-11-05 23:43] LABS: MANUAL DIFF FLAG NO
[2024-11-05 23:44] LABS: Glucose, Whole Blood 101 mg/dL (60-115)
[2024-11-05 23:45] LABS: Basophils Absolute Auto 0.1 X10*3/uL (0.0-0.2); Basophils Percent Auto 0.7 % (0-2); Eosinophils Absolute Auto 0.6 X10*3/uL (0.0-0.4); Eosinophils Percent Auto 5.3 % (0-4); Hematocrit 44.3 % (42.0-52.0); Hemoglobin 15.8 g/dl (14.0-18.0); Imm Gran Abs Auto 0.03 X10*3/uL (0.00-0.03); Imm Gran Pct Auto 0.3 % (0.0-0.4); Lymphocytes Absolute Auto 3.5 X10*3/uL (1.2-4.9); Lymphocytes Percent Auto 29.4 % (20-40); Mean Corpuscular HGB Conc 35.7 g/dl (31.0-36.0); Mean Corpuscular Volume 84.1 fL (80.0-98.0); Mean Platelet Volume 10.2 fL (9.4-12.4); Monocytes Absolute Auto 1.1 X10*3/uL (0.1-1.2); Monocytes Percent Auto 9.6 % (2-11); Neutrophils Absolute Auto 6.5 x10*3/uL (2.0-8.3); Neutrophils Percent Auto 54.7 % (45-73); Platelet Count 338 X10*3/uL (160-400); Red Blood Count 5.27 X10*6/uL (4.60-5.80); Red Cell Distribution Width 13.4 % (11.0-16.0); White Blood Count 11.8 X10*3/uL (4.8-10.8)
[2024-11-05] MEDS: iohexoL 350 MG/ML 100 ML INFUS..BTL 75 ML IV (23:48)
[2024-11-05 23:50] LABS: INTERNATIONAL NORM RATIO 0.9 (0.9-1.1); Prothrombin Time 10.7 SEC (10.9-12.4)
[2024-11-05 23:51] LABS: Stroke Lab Use COMPLETE
[2024-11-05 23:53] LABS: Partial Thromboplastin Time 26.2 SEC (26.0-36.8)
[2024-11-05 23:59] LABS: Alanine Aminotransferase 58 U/L (0-40); Albumin Level 4.4 g/dL (3.5-5.0); Alkaline Phosphatase 124 U/L (39-117); Anion Gap 13 (12-20); Aspartate Amino Transferase 52 U/L (5-37); Bilirubin Total 0.9 mg/dL (0.0-1.0); Blood Urea Nitrogen 9 mg/dL (9-16); Calcium 9.3 mg/dL (8.4-10.2); Carbon Dioxide 25 mmol/L (22-29); Chloride 107 mmol/L (96-108); Cholesterol 195 mg/dL (<200); Creatinine Clr Calc Pharmacy 121.6; Estimated Glomerular Filt Rate > 60; Glucose Random 94 mg/dL (60-115); HDL Cholesterol 39 mg/dL (>40); LDL Cholesterol Calculated 127 mg/dL (<100); Potassium 3.8 mmol/L (3.3-5.1); Sodium 141 mmol/L (135-145); Total Protein 7.7 g/dL (6.5-8.0); Triglycerides 146 mg/dL (<150)
[2024-11-06 00:06] LABS: Troponin-I High Sensitivity < 2.7 ng/L (<3.5-35.0)
[2024-11-06 00:46] LABS: Prothrombin Time Whole Bld POC 11.3 sec (11.1-13.5); ~PT, ~INR - Anti Coag Clinic 0.9 (0.9-1.1)
[2024-11-06] MEDS: Aspirin 81 MG TAB.CHEW 324 MG PO (01:39)
[2024-11-06 01:40] VITALS: BP 168/96; PULSE 78; RESP 18; TEMP 36.8; O2SAT 98
== END 2024-11-06 01:40 | disposition home or self-care (01) ==
PROVIDERS: Physician Assistant; Emergency Provider Internal Medicine; PCP Internal Medicine
DX: I65.22 Occlusion and stenosis of left carotid artery (principal); M54.12 Radiculopathy, cervical region; R20.0 Anesthesia of skin; R07.89 Other chest pain; R94.31 Abnormal electrocardiogram [ECG] [EKG]; R51.9 Headache, unspecified; M54.2 Cervicalgia; Z79.899 Other long term (current) drug therapy; Z03.818 Encounter for observation for suspected exposure to other biological agents ruled out
CPT/HCPCS: 0241U; 36415; 70450; 70496; 70498; 71046; 80048; 80053; 80061; 80076; 82947; 83735; 83880; 84484; 85025; 85610; 85730; 93005; 99284; Q9967

== ENCOUNTER → 2024-11-05 19:34 | Outpatient (BNV) | payer BC, SELFPAY | PROVIDERS: Emergency Provider Internal Medicine; PCP Internal Medicine; Visit Provider Internal Medicine | DX: I25.2 Old myocardial infarction (principal) | CPT/HCPCS: 93010 ==

== ENCOUNTER → 2024-11-05 19:35 | Outpatient (BNV) | payer BC, SELFPAY | PROVIDERS: PCP Internal Medicine; Visit Provider Student in an Organized Health Care Education/Training Program | DX: R53.1 Weakness (principal) | CPT/HCPCS: 70450; 70496; 70498 ==

== ENCOUNTER 2024-11-07 13:26 | Outpatient (AMB) | payer BC, SELFPAY ==
[2024-11-07 13:45] VITALS: BP 130/78; PULSE 65; RESP 17; TEMP 36.4; O2SAT 97; BMI 32.7
--- NOTE | 2024-11-07 13:45 | A.OFFPC_ITS ---
Vital Signs 11/07/24 13:45 Height 5 ft 8 in Weight 215 lb BMI 32.7 BP 130/78 Blood Pressure Location Rt brachial Position Sitting Respiration 17 Pulse 65 Pulse Source Pulse Oximeter Temp 97.5 F Temp Source Oral Pulse Oximetry (%) 97 Oxygen Delivery Method Room Air Intake Visit Reasons: [facility] f/u carotid artery blockage Intake Note: Pt is here today for his [facility] f/u Allergies No Known Allergies Allergy (Verified 11/12/24 23:39) Medication List - Last Reconciled 11/07/24 by Annelise Atkinson MD [[place] Allergy 180 mg PO DAILY PRN] aspirin 81 mg PO DAILY atorvastatin 40 mg PO DAILY azelastine 2 sprays intranasal BID lisinopril 10 mg PO DAILY montelukast 10 mg PO DAILY Tobacco use date assessed: 11/07/24 Dental Screening Dental Screen Date: 11/07/24 Did you have a dental visit in the last 12 months?: Yes Did you have a dental problem in the last 6 months where you did not have access to dental care?: Yes Was dental information given to patient?: Patient has dentist HPI [facility] f/u carotid artery blockage HPI Details 54 year old male wuth history of hyperte nsion, hyperlipidemia, andAl lergic Rhinitis , here for a follow up after a recent ER visit . He went in complaining of decreased feeling in the left hand 4th and 5th fingers, and feels his left arm is heavy . He was able to use arm and was snow blowing all day . Denies headache, nausea, vomiting no other weakness, no speech problem, but reports having intermittent chest pain. Workup for stroke was initiated with CT of head showing no acute findings, CT of head and neck however showed 90% or greater stenosis of the left internal carotid artery origin, no intracranial large vessel occlusion. [facility] Medical History Sensation of chest tightness Carotid stenosis, left Decreased iridologist strength of left hand Numbness and tingling in both hands Cervical radiculopathy due to degenerative joint disease of spine Peripheral neuropathy Anosmia Nasal congestion Nasal polyp Allergic rhinitis Malaise and fatigue Encounter for screening for malignant neoplasm of colon Elevated liver enzymes Obesity (BMI 30.0-34.9) Essential hypertension Dyslipidemia Surgical History H/O eye surgery Social History Housing: House Patient Tobacco Use Status: Never used Tobacco e-Cigarette/Vaping Use: Never Used service: No Current occupational status: employed Cognitive needs: No Hearing needs: No Vision needs: Yes Questionnaire Thrive Questionnaire Date Thrive assessed: 11/07/24 FIDENCIO-7 AMB Questionnaire FIDENCIO-7 Date FIDENCIO - 7 assessed: 07/26/24 Source: Developed by Drs. Tapan Dwyer, Peggy Heath, Abhijit Wallace and colleagues, with an educational beatrice from [employer] Review of Systems Const Reports no additional complaints Eyes Reports no additional complaints ENT Reports Normal hearing present Card Denies chest pain, Denies chest pain at rest, Denies chest pain with activity, Denies pedal edema, Denies dyspnea and Denies dyspnea on exertion Resp Denies cough, Denies dyspnea and Denies dyspnea on exertion GI Denies abdominal pain, Denies change in bowel habits and Denies heartburn Reports no additional complaints Musc Denies abnormal gait, Denies arthralgias, Denies muscle cramps and Reports stiffness Skin/Breast Denies skin ulcer and Denies wounds Neuro Reports Normal hearing present and Denies abnormal gait Psych Reports no additional complaints Endo Reports no additional complaints Felix/Lymph Reports no additional complaints Aller/Immun Reports no additional complaints Physical exam (Primary Care) Vital Signs: Last Vital Signs Temp 97.5 F 11/07/24 13:45 Pulse 65 11/07/24 13:45 Resp 17 11/07/24 13:45 BP 130/78 11/07/24 13:45 Pulse Ox 97 11/07/24 13:45 Oxygen Delivery Method Room Air 11/07/24 13:45 BMI result Body Mass Index 32.7 Tobacco/Smoking Status: Tobacco use Status Tobacco use date assessed 11/07/24 11/07/24 13:47 Patient Tobacco Use Status Never used Tobacco 11/07/24 13:47 e-Cigarette/Vaping Use Never Used 11/07/24 13:47 Thrive Assessment: Date of Thrive Assessment Date Thrive assessed 11/07/24 11/07/24 13:47 Const General: cooperative, comfortable and no acute distress Nutritional Appearance: obese Orientation/consciousness: patient oriented x3 HENMT Head: Yes normocephalic Ears: external ears normal General nose exam: Normal external nose present Mouth: moist mucous membranes Throat: Yes tonsils normal and Yes uvula midline Eyes Pupils: Equal, round and reactive pupils present EOM: EOMs intact bilaterally Direct Ophthalmoscopy: normal light reflex Neck Neck: Yes full ROM and Yes no lymphadenopathy Thyroid: Thyroid normal Resp Effort & Inspection: normal respiratory effort and able to speak in complete sentences Auscultation: clear to auscultation bilaterally Cardio Heart sounds: S1 normal heart sound present and S2 normal heart sound present GI Inspection: Yes Abdominal panniculus present and Yes obesity Palpation (GI): Soft to palpation, nontender and no guarding Auscultation: normal bowel sounds General: Yes no CVA tenderness Back/Spine/Pelvis Back: no CVA tenderness Skin General skin exam: no rashes or lesions noted Neuro General: patient oriented x3, gait normal, tone normal, moves all extremities, Normal light touch and pain sensation and CN's II-XI intact bilaterally Cranial nerves: Yes Equal, round and reactive pupils present and Yes Normal hearing present Motor exam (neuro): 5/5 motor strength present throughout Extrem General: Yes full ROM and Yes capillary refill normal Psych Speech and movement: Normal speech and movement present Coding Level of Care Code Est Pt Level 4 (03432) Complex EM visit Add On G2211 Diagnoses Carotid stenosis, left I65.22 Dyslipidemia E78.5 Essential hypertension I10 Sensation of chest tightness R07.89 Assessment & Plan Assessment & Plan (1) Carotid stenosis, left: Comment: Greater than 90% stenosis on left carotid artery Code(s): I65.22 - Occlusion and stenosis of left carotid artery Category: Medical Plan: Continue aspirin 81 mg daily and atorvastatin 10 mg daily, stat referral to vascular surgery ordered (2) Dyslipidemia: Code(s): E78.5 - Hyperlipidemia, unspecified Category: Medical Plan: Started on rosuvastatin 80 mg daily (3) Essential hypertension: Code(s): I10 - Essential (primary) hypertension Category: Medical Plan: Continue lisinopril 10 mg daily (4) Sensation of chest tightness: Code(s): R07.89 - Other chest pain Category: Medical Plan Ordered fasting basic metabolic panel, repeat total CK, fasting lipid panel vitamin-D and liver enzymes. Cardiology consult in stat vascular consult ordered. consult ordered. Orders: Orders Basic Metabolic Panel Fasting 01/18/25 E78.5 - Hyperlipidemia, unspecified, I10 - Essential (primary) hypertension, I65.22 - Occlusion and stenosis of left carotid artery Creatine Kinase Total 01/18/25 E78.5 - Hyperlipidemia, unspecified, I10 - Essential (primary) hypertension, I65.22 - Occlusion and stenosis of left carotid artery Lipid Panel 01/18/25 E78.5 - Hyperlipidemia, unspecified, I10 - Essential (primary) hypertension, I65.22 - Occlusion and stenosis of left carotid artery Vitamin D 25-OH Total 01/18/25 E78.5 - Hyperlipidemia, unspecified, I10 - Essential (primary) hypertension, I65.22 - Occlusion and stenosis of left carotid artery Aspartate Amino Transferase 01/18/25 E78.5 - Hyperlipidemia, unspecified, I10 - Essential (primary) hypertension, I65.22 - Occlusion and stenosis of left carotid artery Alanine Aminotransferase 01/18/25 E78.5 - Hyperlipidemia, unspecified, I10 - Essential (primary) hypertension, I65.22 - Occlusion and stenosis of left carotid artery Referrals Cardiology Referral I65.22 - Occlusion and stenosis of left carotid artery, R07.89 - Other chest pain Vascular Surgery Referral I65.22 - Occlusion and stenosis of left carotid artery Medications: Changed From atorvastatin 40 mg PO DAILY 90 tabs 1RF E78.5 - Hyperlipidemia, unspecified, I65.22 - Occlusion and stenosis of left carotid artery To atorvastatin 80 mg PO DAILY 90 tabs 1RF E78.5 - Hyperlipidemia, unspecified, I65.22 - Occlusion and stenosis of left carotid artery
--- OUTSIDE RECORDS SUMMARY | 2024-11-07 14:22 | XMS_ITS | Clinical Summary ---
Author Organization [facility] it Address [address] [place] [address] Care Team Providers Care Motor Grader Rough Grade Name Role Phone Golden Henriquez MD Primary Care Provider [phone] Allergies No known active allergies Medications fluticasone propionate (FLONASE) 50 mcg/actuation nasal spray 1 [place] by Nasal route daily. 10/27/2011 Active naproxen (NAPROSYN) 500 mg tablet Take 1 Tab by mouth 2 times daily (with meals). 05/21/2011 Active Active Problems Problem Noted Date Diagnosed Date Pseudophakia of right eye 06/19/2011 Back pain 04/20/2011 Overview (09/11/2024): MRI 2009: Degenerative changes in the L5-S1 disc with broad based central and slightly to the left herniation of the disc, abutting the S1 nerve roots at the origin, left more than right. Mild degenerative changes in the facet joints at the L5-S1 level. Immunizations Name Administration Dates Next Due Influenza trivalent, with pr eservative (Fluzone; Afluria) 6mo and older 05/28/2010,06/07/2009 Td Tetanus diptheria (Tdvax) 7yo and older 04/20 Tdap Tetanus diptheria acell ular pertussis (Boostrix; Adacel) 7yo and older 11/24/2006 Surgical History Surgery Date Site/Laterality Comments CATARACT EXTRACTION PROCEDURE: HISTORICAL CATARACT REMOVAL; COMMENT: at a young age Medical History Medical History Date Comments Back pain 04/20/2011 DX:Back pain Family History Medical History Relation Name Comments Heart attack Father age 48 Other: pace maker Father Stroke Father Other: some type of Ca, liver shut down Maternal Grand mother Arthritis Mother knee surgery Blindness Neg Hx Cataracts Neg Hx Glaucoma Neg Hx Macular degeneration Neg Hx Strabismus Neg Hx Relation Name Status Comments Father Maternal Grandmother Mother Social History Tobacco Use Types Packs/Day Years Used Date Smoking Tobacco: Former Smokeless Tobacco: Never Alcohol Use Standard Drinks/Week Comments No 0 (1 standard drink = 0.6 oz pur e alcohol) Sex and Gender Information Value Date Recorded Sex Assigned at Not on file Legal Sex Male 6:41 PM EST Gender Identity Not on file Sexual Orientation Not on file Obstetrics History Plan of Treatment Health Maintenance Due Date Last Done Comments Hepatitis B Vaccines (1 of 3 - 19+ 3-dose series) 1991 DTaP,Tdap,and Td Vaccines (3 - Td or Tdap) 11/24/2016 11/24/2006, 04/20/2005 Pneumococcal Vaccine: 50+ Years (1 of 1 - PCV) 2022 Zoster Vaccines (1 of 2) 2022 COVID-19 Vaccine (2023-2 5 season) 2024 Influenza Vaccine (#1) 2024 0, 06/07/2009 Cholesterol Screening (Lipid Panel) 09/12/2024 2011 Colorectal Cancer Screening: Colonoscopy 09/12/2024 Depression Screening 09/12/2024 HIV Screening 09/12/2024 Hepatitis C Screening 09/12/2024 Social Influencers of Health Screening 09/12/2024 HIB Vaccines Aged Out No longer eligi ble based on patient's age to complete this topic HPV Vaccines Aged Out No longer eligi ble based on patient's age to complete this topic Hepatitis A Vaccines Aged Out No long er eligible based on patient's age to complete this topic IPV Vaccines Aged Out No longer eligi ble based on patient's age to complete this topic MMR Vaccines Aged Out No longer eligi ble based on patient's age to complete this topic Meningococcal ACWY Vaccine Aged Out N o longer eligible based on patient's age to complete this topic Meningococcal B Vacine Aged Out No lo nger eligible based on patient's age to complete this topic Pneumococcal Vaccine: Pediatrics (0 to 5 Years) and At-Risk Patients (6 to 64 Years) Aged Out No longer eligible b ased on patient's age to complete this topic RSV Immunization Patients Under 20 months Aged Out No longer eligible b ased on patient's age to complete this topic Varicella Vaccines Aged Out No longer eligible based on patient's age to complete this topic Procedures Procedure Name Priority Date/Time Associated Diagnosis Comments LIPID PANEL Routine 2011 from Last 3 Months or Most Recently Relevant to Health Maintenance Results * (ABNORMAL) Lipid panel (2011) LDL/HDL Ratio 7(A) 0 - 4 Triglycerides 128 0 - 150 mg/dL Cholesterol 327(A) 0 - 200 mg/dL HDL 47 >=40 mg/dL LDL Cholesterol 255(A) 0 - 100 mg/dL Blood Venous blood specimen / Unknown Historical Provider LAB BLOOD ORDERABLES Yaritza l Result from Last 3 Months or Most Recently Relevant to Health Maintenance Care Teams Motor Grader Rough Grade Relationship Specialty Start Date End Date Golden Henriquez MD [address] [place] [id number] PCP - General 07/21/01
== END 2024-11-07 14:20 | disposition home or self-care (01) ==
PROVIDERS: PCP Internal Medicine; Visit Provider Internal Medicine
DX: I65.22 Occlusion and stenosis of left carotid artery (principal); E78.5 Hyperlipidemia, unspecified; I10 Essential (primary) hypertension; R07.89 Other chest pain

== ENCOUNTER → 2024-11-07 13:26 | Outpatient (BNVA) | payer BC, SELFPAY | PROVIDERS: PCP Internal Medicine; Visit Provider Internal Medicine ==

== ENCOUNTER 2024-11-09 10:24 | Outpatient (AMB) | payer BC, SELFPAY ==
[2024-11-09 10:26] VITALS: BP 148/86; BMI 32.7
--- NOTE | 2024-11-09 10:26 | MHC.OFFVIS ---
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 PAYROLL MANAGER for carotid stenosis s/p CTA Head/neck for Left UE numbness. Pt states numbness comes and goes, unable to community health consultant with left hand. Started Wednesday night. Zipper Machine Operator Required: No Accompanied by: Self / Same As Patient Allergies No Known Allergies Allergy (Verified 11/09/24 10:31) HPI HPI SR. PAYROLL MANAGER/PCP Urgent Carotid Ref 90% CTA: Details: Very pleasant 54-year-old gentleman presents for evaluation regarding carotid disease. This all began as a workup from the emergency room regarding left him numbness. He reports that the entire episode began after he was snow blowing all day. He had heaviness and discomfort on that left upper extremity and subsequently noticed some on the right upper extremity as well. He denied any lower extremity numbness or loss of function. He subsequently presented to the emergency room and was worked up for stroke as well. At that time CT of the head was negative. CT angio of the neck did demonstrate high-grade left carotid stenosis. Was subsequently discharged and now presents to us for vascular evaluation. Of note he is on an aspirin and statin. He does report he quit smoking about 30 years ago and is a nondiabetic. He can easily climb a flight of stairs with no difficulty. [facility] Medical History Sensation of chest tightness Carotid stenosis, left Decreased community health consultant strength of left hand Numbness and tingling in both hands Cervical radiculopathy due to degenerative joint disease of spine Peripheral neuropathy Anosmia Nasal congestion Nasal polyp Allergic rhinitis Malaise and fatigue Encounter for screening for malignant neoplasm of colon Elevated liver enzymes Obesity (BMI 30.0-34.9) Essential hypertension Dyslipidemia Surgical History H/O eye surgery Social History Housing: House Patient Tobacco Use Status: Never used Tobacco e-Cigarette/Vaping Use: Never Used service: No Current occupational status: employed Cognitive needs: No Hearing needs: No Vision needs: Yes Review of Systems Const All systems reviewed & are unremarkable except as noted in HPI and below Reports no additional complaints ENT Reports Normal hearing present Card Denies chest pain, Denies chest pain at rest, Denies chest pain with activity and Denies pedal edema Resp Denies cough GI Denies abdominal pain Musc Denies abnormal gait, Denies muscle cramps and Denies radiating pain into limb Skin/Breast Denies skin ulcer and Denies wounds Neuro Reports Normal hearing present and Denies abnormal gait Psych Reports no additional complaints Physical Exam Vital Signs: Last Vital Signs BP 112/88 11/09/24 10:34 BMI result Body Mass Index 32.7 Const General: cooperative, healthy appearing and comfortable Orientation/consciousness: oriented to person, oriented to place and oriented to time HEENT Head: Yes normal to inspection Neck Neck: Yes normal visual inspection Carotids: no bruits Chest Chest palpation & inspection: normal inspection of the chest Resp Effort & Inspection: normal respiratory effort and able to speak in complete sentences Auscultation: clear to auscultation bilaterally, no crackles, no rales, no rhonchi and no wheezes Cardio Rate: regular rate Rhythm: regular rhythm Heart sounds: S1 normal heart sound present and S2 normal heart sound present Bruits: no carotid bruits Peripheral pulses: Peripheral pulses 2+ throughout GI Inspection: Yes normal to inspection Skin Wounds: no wounds Hair: normal Neuro General: oriented to person, oriented to place and oriented to time Cranial nerves: Yes CN's II-XII intact bilaterally and Yes Normal hearing present Cognition (Neuro): normal cognition Motor exam (neuro): 5/5 motor strength present throughout Extrem Other: venous exam: No significant superficial varicosities or spider telangiectasias, minimal edema General: No clubbing, No cyanosis and No edema Psych Appearance: grossly normal Mental Status: mental status grossly normal Speech and movement: Normal speech and movement present Results Reviewed Results Reviewed: CT head and neck demonstrates high-grade left carotid stenosis of 90% dated 11/05/2024 Assessment & Plan Assessment & Plan (1) Carotid stenosis, left: Comment: Greater than 90% stenosis on left carotid artery Code(s): I65.22 - Occlusion and stenosis of left carotid artery Category: Medical Plan: In short patient has high-grade left carotid stenosis. Patient will require left carotid endarterectomy. Risks benefits complications including but not limited to bleeding infection stroke and were discussed in detail with the patient. Understood and would like to move forward. We will try to expedite this as soon as possible. He will require cardiac risk stratification prior to surgery. Thank you for allowing us to assist in his care. Coding Level of Care Code New Pt Level 4 (74316) Complex EM visit Add On G2211 Diagnoses Carotid stenosis, left I65.22
[2024-11-09 10:34] VITALS: BP 112/88
--- OUTSIDE RECORDS SUMMARY | 2024-11-09 11:34 | XMS_ITS | Clinical Summary ---
Author Organization [facility] it Address [address] [place] [address] Care Team Providers Care General Manager Road Production Name Role Phone Golden Henriquez MD Primary Care Provider [phone] Allergies No known active allergies Medications fluticasone propionate (FLONASE) 50 mcg/actuation nasal spray 1 [place] by Nasal route daily. 10/27/2011 Active naproxen [...] Recently Relevant to Health Maintenance Care Teams General Manager Road Production Relationship Specialty Start Date End Date Golden Henriquez MD [address] [place] [id number] PCP - General 07/21/01
== END 2024-11-09 10:57 | disposition home or self-care (01) ==
PROVIDERS: PCP Internal Medicine; Visit Provider Surgery Vascular Surgery
DX: I65.22 Occlusion and stenosis of left carotid artery (principal)
CPT/HCPCS: 99204

== ENCOUNTER → 2024-11-09 10:24 | Outpatient (BNVA) | payer BC, SELFPAY | PROVIDERS: PCP Internal Medicine; Visit Provider Surgery Vascular Surgery ==

== ENCOUNTER 2024-11-16 14:55 | Outpatient (AMB) | payer BC, SELFPAY ==
--- NOTE | 2024-11-16 14:58 | A.OFFVIS_ITS ---
Vital Signs 11/16/24 14:59 Height 5 ft 8 in Weight 219 lb 2.232 oz BMI 33.3 BP 148/96 H Blood Pressure Location Lt brachial Position Sitting Pulse 68 Intake Visit Reasons: Preop/Kristen/Left Carotid Endarterectomy Dermatological Surgeon Required: No Accompanied by: Self / Same As Patient Allergies No Known Allergies Allergy (Verified 11/12/24 23:39) Medication List - Last Reconciled 11/16/24 by Damon Sargent MD [[place] Allergy 180 mg PO DAILY PRN] aspirin 81 mg PO DAILY atorvastatin 80 mg PO DAILY azelastine 2 sprays intranasal BID lisinopril 10 mg PO DAILY montelukast 10 mg PO DAILY HPI Comments Details: Mariano is here for consultation regarding cardiac risk stratification bef ore carotid surgery. He recently came to the emergency room with heaviness in the left arm. In that setting, he underwent a neck CTA. That showed > 90% stenosis in the left carotid artery. Has seen vascular surgery and pending carotid endarterectomy. He has been referred to Cardiology for risk assessment. Has a history of hypertension hyperlipidemia. He also states that his father and brother have had cardiac issues. His brother apparently had a stent and is only 4 years older to him. Within limits of his activity, he has not had any clear-cut anginal-type symptoms. No previous cardiac issues. 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 Numbness and tingling in both hands Cervical radiculopathy due to degenerative joint disease of spine Peripheral neuropathy Anosmia Nasal congestion Nasal polyp Allergic rhinitis Malaise and fatigue Encounter for screening for malignant neoplasm of colon Elevated liver enzymes Obesity (BMI 30.0-34.9) Essential hypertension Dyslipidemia Surgical History H/O eye surgery Family History (Updated 11/16/24 @ 15:12 by Damon Sargent MD) Father CAD (coronary artery disease) Brother CAD (coronary artery disease) Social History (Updated 11/16/24 @ 15:02 by Mariah Menezes CMA) Housing: House Alcohol intake: former Patient Tobacco Use Status: Never used Tobacco e-Cigarette/Vaping Use: Never Used service: No Current occupational status: employed Cognitive needs: No Hearing needs: No Vision needs: Yes Review of Systems Const Denies chills, Denies daytime sleepiness, Denies fatigue, Denies fever(s), Denies poor appetite, Denies snoring, Denies stops breathing during sleep, Denies weakness, Denies weight gain and Denies weight loss Eyes Denies loss of vision ENT Denies dizziness and Denies hearing loss Card Denies chest pain, Denies irregular heart rhythm, Denies claudication, Denies leg edema, Denies lightheadedness, Denies palpitations, Denies dyspnea on exer tion and Denies orthopnea Resp Denies cough, Denies excessive phlegm production, Denies dyspnea on exertion, Denies snoring and Denies wheezing GI Denies abdominal pain, Denies hematochezia, Denies change in bowel habits, Denies nausea and Denies vomiting Denies dysuria and Denies urinary frequency Musc Denies arthralgias, Denies muscle weakness, Denies numbness and Denies other Skin/Breast Denies nail changes and Denies rash Neuro Denies Abnormal speech present, Denies dizziness, Denies loss of vision, Denies memory loss, Denies numbness and Denies weakness Psych Denies depression and Denies memory loss Endo Denies fatigue and Denies palpitations Felix/Lymph Denies easy bruising Aller/Immun Denies wheezing Physical Exam Vital Signs: Last Vital Signs Pulse 68 11/16/24 14:59 BP 148/96 H 11/16/24 14:59 BMI result Body Mass Index 33.3 Const General: comfortable and no acute distress Orientation/consciousness: patient oriented x3 HEENT Other: Unremarkable Head: Yes normal to inspection Neck Neck: Yes normal visual inspection Chest Chest palpation & inspection: normal inspection of the chest Resp Auscultation: clear to auscultation bilaterally Cardio Palpation: normal PMI Heart sounds: S1 normal heart sound present, S2 normal heart sound present, no gallops, Murmur heart sound present systolic II/ and at the right sternal border and no rubs GI Palpation (GI): Soft to palpation Back/Spine/Pelvis Other: unremarkable Skin General skin exam: no rashes or lesions noted Neuro General: patient oriented x3 Speech: No Abnormal speech present Extrem General: Yes normal to inspection Psych Mental Status: mental status grossly normal Office Procedures EKG Details: Chest EKG with underlying sinus rhythm at 68/Min; mild T inversions in lateral leads; normal VT and corrected QT. This seems more prominent than last EKG. [id number], Complete Assessment & Plan Assessment & Plan (1) Preoperative cardiovascular examination: Code(s): Z01.810 - Encounter for preprocedural cardiovascular examination Category: Medical (2) Essential hypertension: Code(s): I10 - Essential (primary) hypertension Category: Medical (3) Dyslipidemia: Code(s): E78.5 - Hyperlipidemia, unspecified Category: Medical (4) Carotid stenosis, left: Comment: Greater than 90% stenosis on left carotid artery Code(s): I65.22 - Occlusion and stenosis of left carotid artery Category: Medical Plan In the CTA, > 90% stenosis of the left internal carotid. Hypertension, high lipids, positive family history, T inversions in the lateral leads on EKG. Aortic sclerotic murmur on exam. It needs an echocardiogram and exercise stress perfusion imaging study for further evaluation. We will get these set up as soon as possible. Addendum to be made after review of the above. Plan discussed with patient and he agrees. Orders: Orders CA echo transthoracic complete Today Z01.810 - Encounter for preprocedural cardiovascular examination CA stress test Today R07.2 - Precordial pain, Z01.810 - Encounter for preprocedural cardiovascular examination NM cardiolite stress test Today R07.2 - Precordial pain, Z01.810 - Encounter for preprocedural cardiovascular examination Coding Level of Care Code New Pt Level 4 (90164) Diagnoses Preoperative cardiovascular examination Z01.810 Essential hypertension I10 Dyslipidemia E78.5 Carotid stenosis, left I65.22 CPT Codes EKG - CPT: 30170-Zrglinppvomysdcae, Complete ([id number])
[2024-11-16 14:59] VITALS: BP 148/96; PULSE 68; BMI 33.3
--- OUTSIDE RECORDS SUMMARY | 2024-11-16 18:14 | XMS_ITS | Clinical Summary ---
Author Organization [facility] it Address [address] [place] [address] Care Team Providers Care Account Manager Trainee Name Role Phone Golden Henriquez MD Primary Care Provider [phone] Allergies No known active allergies Medications fluticasone propionate (FLONASE) 50 mcg/actuation nasal spray 1 [place] by Nasal route daily. 10/27/2011 Active naproxen [...] Recently Relevant to Health Maintenance Care Teams Account Manager Trainee Relationship Specialty Start Date End Date Golden Henriquez MD [address] [place] [id number] PCP - General 07/21/01
== END 2024-11-16 15:19 | disposition home or self-care (01) ==
PROVIDERS: PCP Internal Medicine; Visit Provider Internal Medicine
DX: I10 Essential (primary) hypertension (principal); E78.5 Hyperlipidemia, unspecified; I65.22 Occlusion and stenosis of left carotid artery; Z01.810 Encounter for preprocedural cardiovascular examination
CPT/HCPCS: 93010; 99214

== ENCOUNTER → 2024-11-16 14:55 | Outpatient (BNVA) | payer BC, SELFPAY | PROVIDERS: PCP Internal Medicine; Visit Provider Internal Medicine | DX: Z01.810 Encounter for preprocedural cardiovascular examination (principal); I10 Essential (primary) hypertension; E78.5 Hyperlipidemia, unspecified; I65.22 Occlusion and stenosis of left carotid artery | CPT/HCPCS: 93005 ==

== ENCOUNTER → 2024-11-18 08:56 | Outpatient (BNV) | payer BC, SELFPAY | PROVIDERS: PCP Internal Medicine; Visit Provider Radiology Diagnostic Radiology | DX: M47.22 Other spondylosis with radiculopathy, cervical region (principal) | CPT/HCPCS: 72141 ==

== ENCOUNTER 2024-11-18 08:57 | Outpatient (REF) | payer BC, SELFPAY ==
--- NOTE | ~2024-11-18 | MR_ITS ---
CLINICAL HISTORY: R20.0 - Anesthesia of skin MR cervical spine without gadolinium Comparison: CT/UT/SR - CT ANGIO HEAD NECK STROKE - 11/05/24 23:42 EST Normal vertebral body alignment. There is degenerative disc disease at the C5-6 and C6-7 levels with disc space narrowing seen particularly at C5-C6. No acute fractures or pathologic bone lesions. Visualized intracranial contents are unremarkable. No cervical fluid collections or masses. At C5-C6 there is a small central disc protrusion and right subarticular protrusion. There is deformity of the dural sac and cord particularly along the right anterior aspect. There are also posterior osteophytic ridges eccentric to the right narrowing of the right neural foramen with evidence of nerve root impingement. There is also mild narrowing of the left neural foramen at this level. At C6-7 there is a diffuse annular bulge and associated osteophytic ridge eccentric to the left deforming the left anterior aspect of the dural sac. There is slight narrowing of the left neural foramen at this Level. The rest of the discs are unremarkable. IMPRESSION: 1. At C5-C6 there is a small central disc protrusion and right subarticular protrusion. There is deformity of the dural sac and cord particularly along the right anterior aspect. There are also posterior osteophytic ridges eccentric to the right narrowing of the right neural foramen with evidence of nerve root impingement. There is also mild narrowing of the left neural foramen at this level. 2. At C6-7 there is a diffuse annular bulge and associated osteophytic ridge eccentric to the left deforming the left anterior aspect of the dural sac. There is slight narrowing of the left neural foramen at this Level. This document has been electronically signed by: Evelio Piedra MD on 11/18/2024 10:14:12
== END 2024-11-18 08:58 | disposition home or self-care (01) ==
LOC: HO.MRI 08:57
PROVIDERS: PCP Internal Medicine; Visit Provider Internal Medicine
DX: R20.0 Anesthesia of skin (principal); R20.2 Paresthesia of skin; R29.898 Other symptoms and signs involving the musculoskeletal system; M47.22 Other spondylosis with radiculopathy, cervical region; G62.9 Polyneuropathy, unspecified
CPT/HCPCS: 72141

== ENCOUNTER → 2024-11-24 08:36 | Outpatient (REF) | payer BC, SELFPAY ==
--- NOTE | 2024-11-24 08:39 | CA_ITS ---
Transthoracic Echocardiogram Patient (Last, First, Middle): Mariano Spence, Gender: Male Date of : 1970 Age: 54 Procedure Date: 11/24/2024 Procedure Type: Transthoracic Echocardiogram Location: OP Height: 172. cm Weight: 99.34 kg BSA: 2.12 m2 Heart Rate: 58 bpm BP: 175 / 90 mmHg Lead Level Designer: RICK Zhao MD: Damon Sargent MD Customer Consulting Manager: Cristian Gordon MD Symptoms: Z01.810 - Encounter for preprocedural cardiovascular examination Study Quality: Adequate ECG Rhythm: Bradycardia Conclusions: - Overall normal study with mildly dilated right ventricle with preserved systolic function Findings Left Ventricle Normal left ventricular size, thickness, and systolic function. The visually estimated ejection fraction is between 65-70%. Spectral Doppler is indicative of a normal filling pattern. Right Ventricle Mildly increased right ventricular cavity size. There is normal right ventricular systolic function. Atria The left atrium is normal in size. Interatrial shunt cannot be excluded. The right atrium is normal in size. Aortic Valve Normal aortic valve structure and function. There is no aortic valve stenosis. There is no aortic valve regurgitation. Mitral Valve Normal mitral valve structure and function. There is trace mitral valve regurgitation. There is no mitral valve stenosis. Pulmonic Valve The pulmonic valve is likely normal. Tricuspid Valve Normal tricuspid valve structure. Tricuspid regurgitation envelope is inadequate for calculation of right ventricular systolic pressure. Normal right atrial pressure. Great Vessels All visible segments of the aorta are normal in size. The pulmonary artery was not well visualized. There is no dilatation of the ascending aorta measuring 3.20 cm. Venous The inferior vena cava is normal in size and collapses greater than 50% with inspiration. Pericardium/Pleural There is no evidence of pericardial effusion. Prior Study Comparison No prior study available for comparison. Measurements 2D Linear Measurements IVSd: 0.91 0.6-0.9/0.6-1.0 cm LVIDd: 4.82 3.9-5.3/4.2-5.9 cm LVIDd Index: 2.27 2.4-3.2/2.2-3.1 cm/m2 LVIDs: 3.11 2.0-3.6 cm LVPWd: 0.93 0.7-1.1 cm LA Diam: 3.60 2.7-3.8/3.0-4.0 cm LAIDs Index: 1.70 1.5-2.3 cm/m2 LV Mass: 190.63 67-162/88-224 g LV Mass Index: 89.92 43-95/49-115 g/m2 LVOT Diam: 2.20 3.0+(-)1.3 cm 2D Systolic Function EF 4C: 63.30 >55% EF 2C: 68.20 >55% EF BiP: 66.10 >55% Mitral Valve MV Pk E: 0.66 MV PK A: 0.69 MV Decel Time: 211.00 E/A: 1.00 E'Lateral: 7.51 E'Medial: 6.53 E/E' Med: 10.20 E/E' Lat: 8.80 PHT: 62.00 MVA PHT: 3.55 Decel Loup: 3.14 Aortic Valve AoV Pk David: 1.63 AoV Mn David: 1.06 AoV VTI: 0.34 AoV Pk Grad: 11.00 Aov Mn Grad: 5.00 ISAURO Cont.VTI: 2.03 LVOT LVOT Pk David: 0.85 LVOT Mn David: 0.56 LVOT VTI: 0.18 LVOT Pk Grad: 3.00 LVOT Mn Grad: 1.00 LVOT Diam: 2.20 LVOT Area: 3.80 Diastolic Function MV Pk E: 0.66 MV Pk A: 0.69 E/A: 1.00 E'Medial: 6.53 E/E' Med: 10.20 E' Laterial: 7.51 E/E' Lat: 8.80 Right Ventricle TAPSE (mm): 19.10 TVS' David: 11.00 Tricuspid Valve TR Pk David: 1.45 TR Pk Grad: 8.00 Great Vessels Aorta Sinus of Valsalva: 3.50 2.0-3.5 cm Ao Asc: 3.20 2.1-3.4 cm Pulmonary Valve PV Pk David: 0.91 Peak PV Grad: 3.00 Updated in Other Vendor System with Status of Final Cristian Gordon MD electronically signed on 11/25/2024 12:47:17 PM with status of Final
--- OUTSIDE RECORDS SUMMARY | 2024-11-24 09:08 | XMS_ITS | Clinical Summary ---
Author Organization [facility] it Address [address] [place] [address] Care Team Providers Care Cook Helper Meat Name Role Phone Golden Henriquez MD Primary Care Provider [phone] Allergies No known active allergies Medications fluticasone propionate (FLONASE) 50 mcg/actuation nasal spray 1 [place] by Nasal route daily. 10/27/2011 Active naproxen [...] Recently Relevant to Health Maintenance Care Teams Cook Helper Meat Relationship Specialty Start Date End Date Golden Henriquez MD [address] [place] [id number] PCP - General 07/21/01
== END ==
LOC: HO.CARD 08:36
PROVIDERS: PCP Internal Medicine; Visit Provider Internal Medicine
DX: Z01.810 Encounter for preprocedural cardiovascular examination (principal)
CPT/HCPCS: 93306

== ENCOUNTER → 2024-11-24 08:39 | Outpatient (BNV) | payer BC, SELFPAY | PROVIDERS: PCP Internal Medicine; Visit Provider Internal Medicine Cardiovascular Disease | DX: I51.89 Other ill-defined heart diseases (principal) | CPT/HCPCS: 93306 ==

== ENCOUNTER → 2024-11-27 08:37 | Outpatient (REF) | payer BC, SELFPAY ==
--- NOTE | 2024-11-27 08:39 | CA_ITS ---
Acquisition Time: 2024-11-27 08:43:21 Total Exercise Time: 00:07:16 Test Indications: CARDIAC STENOSIS, CP Medications: SEE H&P Protocol: BEKAH Max HR: 146 BPM 86% of Pred: 168 BPM Max BP: 200/106 mmHG Max Work Load: 8.9 METS Exercise stress test with exercise 7 min 16 sec of Bekah protocol, achieivng 86% MPHR, without anginal symptoms, with one ventricular cuplet in stage 2 and isolated PVCs, brief ventricular bigeminy in stage 3, with hypertensive response to exercise, with EKG changes meeting criteria for ischemia: horizontal ST depression leads II, aVF, V5-V6, downsloping ST depression lead III which gradually improves back to baseline in recovery. In recovedry BP returned to near baseline. Nuclear images pending. Test reviewed with Dr Liang. Referred By: Damon Sargent Electronically Signed By: SOBEIDA PABON
--- OUTSIDE RECORDS SUMMARY | 2024-11-27 08:57 | XMS_ITS | Clinical Summary ---
Author Organization [facility] it Address [address] [place] [address] Care Team Providers Care [employer] Wiring Technician Name Role Phone Golden Henriquez MD Primary Care Provider [phone] Allergies No known active allergies Medications fluticasone propionate (FLONASE) 50 mcg/actuation nasal spray 1 [place] by Nasal route daily. 10/27/2011 Active naproxen [...] Recently Relevant to Health Maintenance Care Teams [employer] Wiring Technician Relationship Specialty Start Date End Date Golden Henriquez MD [address] [place] [id number] PCP - General 07/21/01
== END ==
LOC: HO.CARD 08:37
PROVIDERS: PCP Internal Medicine; Visit Provider Internal Medicine
DX: Z01.810 Encounter for preprocedural cardiovascular examination (principal); R07.2 Precordial pain
CPT/HCPCS: 93017

== ENCOUNTER → 2024-11-27 08:39 | Outpatient (BNV) | payer BC, SELFPAY | PROVIDERS: PCP Internal Medicine; Visit Provider Nurse Practitioner Family | DX: I49.3 Ventricular premature depolarization (principal); R03.0 Elevated blood-pressure reading, without diagnosis of hypertension | CPT/HCPCS: 78452; 93016; 93018 ==

== ENCOUNTER 2024-11-27 10:33 | Outpatient (AMB) | payer BC, SELFPAY ==
--- NOTE | 2024-11-27 10:39 | HO.SPINEOV ---
Vital Signs 11/27/24 10:40 Height 5 ft 8 in Weight 219 lb BMI 33.3 Intake Visit Reasons: decreased feeling in the left hand Intake Note: Mr. Spence is here today c/o decreased feeling in the left hand. Health Underwriter Required: No Allergies No Known Allergies Allergy (Verified 11/12/24 23:39) Physical Exam Vital Signs: BMI result Body Mass Index 33.3 Assessment & Plan Assessment & Plan (1) Cervical neck pain with evidence of disc disease: Code(s): M50.90 - Cervical disc disorder, unspecified, unspecified cervical region Category: Medical Plan Dear Dr Atkinson, Thank you for referring Mr Spence to our office today. He is a very nice 54-year-old gentleman presents for evaluation of intermittent episode of numbness and weakness in his left arm that occurred about 3 or 4 weeks ago. He tells me that he went to bed normal and woke up in the morning with inability to move his whole left arm. He also had numbness. He ended up going out and working that day hoping it would just go away but ultimately ended up in the emergency room. While he was there he was diagnosed with carotid stenosis in the left side with a 90% blockage. He was discharged on a baby aspirin to follow-up. He also reports he has had numbness on the whole side of his right body from the arm down through the leg for about a year. He will drop things out of his hands occasionally but does not report any specific strength loss and he is able to continue with his normal routines at work which are somewhat physically active. He underwent an MRI of the cervical spine showing some degenerative changes and came in to see us today for an evaluation. He does report some pain down along his right shoulder. PMH: History of high cholesterol, he is apparently have some type of familial or genetic issue where he has had high cholesterol since he was a teenager. He is a history of eye surgery, hypertension. Other than that he denies any major medical issues. Social hx: He does not smoke, drink use any recreational drugs Medications: Baby aspirin, atorvastatin, lisinopril, montelukast and [place] Allergies: None Physical exam: Awake alert oriented no acute distress, he has full strength of bilateral upper and lower extremities with normal reflexes, no Davalos's sign. Negative Tinel sign, gait is normal. He has some pain with range of motion of his right shoulder. Imaging review: Cervical MRI done at [place] shows some mild degenerative disc disease, C5-6 he has mild foraminal stenosis on the right. C6-7 has some very subtle disc bulging. There is no spinal cord compression, cord signal change etc.. Impression: 54-year-old male presents with abrupt loss of function of his left arm about 3-4 weeks ago that recovered over the course of 48 hours. He was in the emergency room at the time was discovered to have 90% blockage in his left internal carotid and elevated blood pressure at 168 over 96. He was treated with baby aspirin and discharged home. That seems to have recovered. The exact source is unclear as his head CT was negative for stroke at the time. He has also had intermittent loss of sensation on his whole right side including the right arm and right leg interestingly sparing the chest and abdomen area. He has had that for about a year. His cervical MRI shows some very modest degenerative changes with no spinal cord compression. There is nothing on the imaging that would explain whole-body numbness, or abrupt onset loss of function in his left arm a few weeks back. It is looking like this could possibly be something connected with his carotid stenosis, and the patient tells me he is getting that worked up with an office visit with the vascular surgeon sometime soon. From our standpoint, there is no need for surgery on his neck as there is just very low-grade findings that would down explain all of his symptoms. Thank you for allowing us to care for your patient. The total time spent with this visit with this patient was 45 minutes reviewing history, physical exam, cervical imaging review, and implementation of treatment plan or further diagnostic testing Tim Mcmillan MD,PhD [facility] Coding Level of Care Code New Pt Level 4 (86776) Diagnoses Cervical neck pain with evidence of disc disease M50.90
[2024-11-27 10:40] VITALS: BMI 33.3
--- OUTSIDE RECORDS SUMMARY | 2024-11-27 11:54 | XMS_ITS | Clinical Summary ---
Author Organization [facility] it Address [address] [place] [address] Care Team Providers Care Online Merchant Name Role Phone Golden Henriquez MD Primary Care Provider [phone] Allergies No known active allergies Medications fluticasone propionate (FLONASE) 50 mcg/actuation nasal spray 1 [place] by Nasal route daily. 10/27/2011 Active naproxen [...] Recently Relevant to Health Maintenance Care Teams Online Merchant Relationship Specialty Start Date End Date Golden Henriquez MD [address] [place] [id number] PCP - General 07/21/01
== END 2024-11-27 11:31 | disposition home or self-care (01) ==
LOC: HO.HNS 10:33
PROVIDERS: PCP Internal Medicine; Referring Provider Internal Medicine; Visit Provider Physician Assistant
DX: M50.90 Cervical disc disorder, unspecified, unspecified cervical region (principal)
CPT/HCPCS: 99204

== ENCOUNTER 2024-12-13 13:58 | Outpatient (REF) | payer BC, SELFPAY ==
[2024-12-13 14:42] LABS: Hematocrit 40.9 % (42.0-52.0); Hemoglobin 14.4 g/dl (14.0-18.0); Mean Corpuscular HGB Conc 35.2 g/dl (31.0-36.0); Mean Corpuscular Volume 85.2 fL (80.0-98.0); Mean Platelet Volume 10.7 fL (9.4-12.4); Platelet Count 265 X10*3/uL (160-400); Red Cell Distribution Width 13.4 % (11.0-16.0); White Blood Count 6.7 X10*3/uL (4.8-10.8)
[2024-12-13 14:44] LABS: INTERNATIONAL NORM RATIO 0.9 (0.9-1.1); Prothrombin Time 10.6 SEC (10.9-12.4)
[2024-12-13 15:07] LABS: Anion Gap 10 (12-20); Blood Urea Nitrogen 7 mg/dL (9-16); Calcium 9.1 mg/dL (8.4-10.2); Carbon Dioxide 29 mmol/L (22-29); Chloride 106 mmol/L (96-108); Estimated Glomerular Filt Rate > 60; Glucose Random 104 mg/dL (60-115); Potassium 4.6 mmol/L (3.3-5.1); Sodium 140 mmol/L (135-145)
== END 2024-12-13 13:59 | disposition home or self-care (01) ==
LOC: HO.LAB 13:58
PROVIDERS: PCP Internal Medicine
DX: R94.39 Abnormal result of other cardiovascular function study (principal)
CPT/HCPCS: 36415; 80048; 85027; 85610

== ENCOUNTER → 2024-12-14 23:59 | Outpatient (BNV) | payer BC, SELFPAY | PROVIDERS: PCP Internal Medicine; Visit Provider Internal Medicine Cardiovascular Disease | DX: R93.1 Abnormal findings on diagnostic imaging of heart and coronary circulation (principal); Z01.810 Encounter for preprocedural cardiovascular examination | CPT/HCPCS: 93458; 99152 ==

== ENCOUNTER 2024-12-25 09:13 | Inpatient (IN) | payer BC, SELFPAY ==
[2024-12-15 10:18] VITALS: BP 161/85; PULSE 63; RESP 16; O2SAT 97; BMI 32.7
--- NOTE | 2024-12-15 10:34 | P.CONAN_ITS ---
Documented by User: Kailey Su NP 12/22/24 14:44 HPI - Anesthesia Eval Consult details Narrative: 54yo M for Left Carotid Endarterectomy, 12/25/24 Cardiac optimized. Preop work up by [facility] [place] Cardiology with nml cath. No recent illness - some allergy symptoms with OTC allergy meds. 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 HTN/HLD on rx PMFSH Active Problems Active Problems: All Active Problems Preoperative cardiovascular examination (Acute) Cervical neck pain with evidence of disc disease (Acute) Sensation of chest tightness (Acute) Carotid stenosis, left (Acute) Decreased rehab department manager strength of left hand (Acute) Numbness and tingling in both hands (Acute) Cervical radiculopathy due to degenerative joint disease of spine (Acute) Peripheral neuropathy (Acute) Anosmia (Acute) Nasal congestion (Acute) Nasal polyp (Acute) Allergic rhinitis (Acute) Malaise and fatigue (Acute) Essential hypertension (Acute) Dyslipidemia (Acute) Encounter for screening for malignant neoplasm of colon (Acute) Past Medical History Medical History (Updated 12/15/24 @ 10:36 by Marielle Calderon, WISAM) Lumbar herniated disc Right arm numbness Back pain Environmental allergies Seasonal allergies Cervical neck pain with evidence of disc disease Sensation of chest tightness Carotid stenosis, left Decreased rehab department manager strength of left hand Numbness and tingling in both hands Cervical radiculopathy due to degenerative joint disease of spine Peripheral neuropathy Anosmia Nasal congestion Nasal polyp Allergic rhinitis Malaise and fatigue Encounter for screening for malignant neoplasm of colon Elevated liver enzymes Obesity (BMI 30.0-34.9) Essential hypertension Dyslipidemia Family History Family History (Updated 11/16/24 @ 15:12 by Damon Sargent MD) Father CAD (coronary artery disease) Brother CAD (coronary artery disease) Family history of problems with anesthesia: No Surgical History Surgical History (Updated 12/15/24 @ 10:11 by Marielle Calderon, WISAM) History of cardiac catheterization (12/14/24) Hx of colonoscopy (07/05/24) H/O eye surgery History of Problems with Anesthesia: No Social History Social History (Updated 12/15/24 @ 10:45 by Marielle Calderon, WISAM) Household Members: Family Housing: House Are you a primary patient care coordinator to a significant other at home: No Do you presently have visiting nurse or other home services: No Alcohol intake: former Comment: aware of trip hazard Patient Tobacco Use Status: Former Tobacco user Tobacco use type: Cigarette Smoked in Last 30 Days: No e-Cigarette/Vaping Use: Never Used Second Hand Smoke Exposure: No Use of substances other than those prescribed or required for medical reasons: No Have you been hit, kicked, punched, or otherwise hurt by someone within the past year? If so, by whom?: No Are you DNR?: No Advance Directives: No Advance Directives Information Provided: Yes Advance Directives on File: No Recently lost weight without trying: No Nutrition Risks: No Nutritional Risk service: No Current occupational status: employed Cognitive needs: No Hearing needs: No Vision needs: Yes Meds Allergies Allergy/AdvReac Type Severity Reaction Status Date / Time shellfish derived Allergy Anaphylaxis, Verified 12/15/24 11:49 soft shelled Home Medications ?Medication ?Instructions ?Recorded ?Confirmed ?Last Taken ?Type Albina Allergy 180 mg PO DAILY PRN environmental 07/04/24 12/15/24 12/24/24 History allergy relief aspirin 81 mg tablet,delayed 81 mg PO BEDTIME 12/15/24 12/15/24 12/24/24 History release atorvastatin 80 mg tablet 80 mg PO BEDTIME 12/15/24 12/15/24 12/24/24 History Exam Height,Weight and Vital Signs: Height 5 ft 8 in Weight 97.7 kg Last Vital Signs Pulse 63 12/15/24 10:18 Resp 16 12/15/24 10:18 BP 161/85 H 12/15/24 10:18 Pulse Ox 97 12/15/24 10:18 O2 Del Method Room Air 12/15/24 10:18 Pertinent Lab Results Pertinent Lab Results: Laboratory Tests 12/13/24 14:09 WBC 6.7 Hgb 14.4 Hct 40.9 L Plt Count 265 Sodium 140 Potassium 4.6 D Chloride 106 Carbon Dioxide 29 BUN 7 L Creatinine 0.78 Laboratory Tests 11/05/24 12/13/24 23:34 14:09 PT 10.6 L INR 0.9 APTT 26.2 Lab Results 12/15/24 Range/Units 11:08 Blood Type O Positive Antibody Screen NEGATIVE Narrative Narrative: EKG 10/2024 Details: Chest EKG with underlying sinus rhythm at 68/Min; mild T inversions in lateral leads; normal OR and corrected QT. This seems more prominent than last EKG. ECHO 11/2024 Conclusions: - Overall normal study with mildly dilated right ventricle with preserved systolic function NM cardiolite stress test 11/2024 IMPRESSION: 1. Myocardial perfusion imaging study shows no clear evidence of ischemia or infarct. 2. Gated LVEF is 69% during stress and 63% during rest. 3. Transient ischemic dilatation not present. EKG component of the test reported separately. Cardiac Cath 11/2024 Conclusions Diagnostic Summary 54 gentleman here for diagnostic cardiac catheterization as part of perioperative cardiovascular risk assessment before carotid surgery. Hemodynamics: Significantly elevated systemic pressures. LVEDP 20 mmHg. No significant gradient across the aortic valve pullback. Coronary anatomy: Right dominant circulation. No significant coronary artery disease noted. Plan proceed for vascular surgery with low to intermediate risk for susan operative cardiac complications. Diagnostic Recommendations Aggressive secondary risk factor modification according to ATP III guidelines. Continue aspirin 81 mg/day indefinitely. Titration of blood pressure medications. Can proceed with carotid surgery, he is not high risk for perioperative complications. Airway Mallampati Class: III TM Dist: >3cm Neck ROM: Limited Loose/Missing/Broken Teeth: Yes (Molars missing. Invisalign buttons present) Heart: RRR Lungs: CTAB Assessment and Plan Assessment Anesthesia Assessment: Anesthesia Plan Discussed and PAT Visit Final Anesthetic Review Family History of Problems with Anesthesia: No History of Problems with Anesthesia: No Documented by User: Daria Paul MD 12/25/24 10:47 [facility] Past Medical History Medical History (Updated 12/15/24 @ 10:36 by Marielle Calderon RN) Lumbar herniated disc Right arm numbness Back pain Environmental allergies Seasonal allergies Cervical neck pain with evidence of disc disease Sensation of chest tightness Carotid stenosis, left Decreased rehab department manager strength of left hand Numbness and tingling in both hands Cervical radiculopathy due to degenerative joint disease of spine Peripheral neuropathy Anosmia Nasal congestion Nasal polyp Allergic rhinitis Malaise and fatigue Encounter for screening for malignant neoplasm of colon Elevated liver enzymes Obesity (BMI 30.0-34.9) Essential hypertension Dyslipidemia Family History Family History (Updated 11/16/24 @ 15:12 by Damon Sargent MD) Father CAD (coronary artery disease) Brother CAD (coronary artery disease) Surgical History Surgical History (Updated 12/15/24 @ 10:11 by Marielle Calderon, RN) History of cardiac catheterization (12/14/24) Hx of colonoscopy (07/05/24) H/O eye surgery Social History Social History (Updated 12/15/24 @ 10:45 by Marielle Calderon, RN) Household Members: Family Housing: House Are you a primary patient care coordinator to a significant other at home: No Do you presently have visiting nurse or other home services: No Alcohol intake: former Comment: aware of trip hazard Patient Tobacco Use Status: Former Tobacco user Tobacco use type: Cigarette Smoked in Last 30 Days: No e-Cigarette/Vaping Use: Never Used Second Hand Smoke Exposure: No Use of substances other than those prescribed or required for medical reasons: No Have you been hit, kicked, punched, or otherwise hurt by someone within the past year? If so, by whom?: No Are you DNR?: No Advance Directives: No Advance Directives Information Provided: Yes Advance Directives on File: No Recently lost weight without trying: No Nutrition Risks: No Nutritional Risk service: No Current occupational status: employed Cognitive needs: No Hearing needs: No Vision needs: Yes Meds Allergies Allergy/AdvReac Type Severity Reaction Status Date / Time shellfish derived Allergy Anaphylaxis, Verified 12/15/24 11:49 soft shelled Home Medications ?Medication ?Instructions ?Recorded ?Confirmed ?Last Taken ?Type Albina Allergy 180 mg PO DAILY PRN environmental 07/04/24 12/15/24 12/24/24 History allergy relief aspirin 81 mg tablet,delayed 81 mg PO BEDTIME 12/15/24 12/15/24 12/24/24 History release atorvastatin 80 mg tablet 80 mg PO BEDTIME 12/15/24 12/15/24 12/24/24 History Assessment and Plan Final Anesthetic Review NPO: Yes ASA Class: III Final Preanesthetic Review: No Changes in Pt Med Stat, Meds/Allgs Chart Reviewed and Consent Obtained/Reviewed Patient Risk: Intermediate Procedure Risk: Intermediate Anesthetic Plan Anesthetic Plan: GA Disposition: Standard PACU
[2024-12-25] VITALS (20 sets, daily range): BP systolic 103–179; BP diastolic 69–100; PULSE 61–77; RESP 14–19; TEMP 36.2–36.8; O2SAT 94–97; BMI 32.2
--- NOTE | 2024-12-25 07:25 | MHC.SHP ---
Pre-Procedural Eval Section A - 24 Hr Update-Section A only Date of Service: 12/25/24 The patient is an INPATIENT: No Changes since office visit: Yes Patient answered all questions The patient has been examined within 24 hours of the surgical procedure. The History & Physical has been completed within 30 days and I have reviewed it.: Yes Section B - Complete if H&P > 30 days Chief Complaint: Occlusion and stenosis of left carotid artery Allergies: Allergies Allergy/AdvReac Type Severity Reaction Status Date / Time shellfish derived Allergy Anaphylaxis, Verified 12/15/24 11:49 soft shelled Plan I have reviewed the history and physical and performed a pertinent physical examination on my patient. No changes have occurred unless specified. Time Spent With Patient Time: Total time managing care of this patient today ____ minutes.
[2024-12-25] MEDS: Lactated Ringers 1,000 ML 100 ML IVCONT ×2 (09:40→15:21)
[2024-12-25 09:57] LABS: Hematocrit 42.4 % (42.0-52.0); Hemoglobin 14.5 g/dl (14.0-18.0); Mean Corpuscular HGB Conc 34.2 g/dl (31.0-36.0); Mean Corpuscular Hemoglobin 29.7 pg (27.0-33.0); Mean Corpuscular Volume 86.7 fL (80.0-98.0); Mean Platelet Volume 10.3 fL (9.4-12.4); Platelet Count 340 X10*3/uL (160-400); Red Blood Count 4.89 X10*6/uL (4.60-5.80); Red Cell Distribution Width 13.7 % (11.0-16.0); White Blood Count 8.1 X10*3/uL (4.8-10.8)
[2024-12-25 10:14] LABS: INTERNATIONAL NORM RATIO 0.9 (0.9-1.1); Prothrombin Time 10.6 SEC (10.9-12.4)
[2024-12-25 10:17] LABS: Partial Thromboplastin Time 27.5 SEC (26.0-36.8)
--- OUTSIDE RECORDS SUMMARY | 2024-12-25 10:23 | XMS_ITS | Clinical Summary ---
Author Organization [facility] it Address [address] [place] [address] Care Team Providers Care Inside Sales Recruiter Name Role Phone Golden Henriquez MD Primary Care Provider [phone] Allergies No known active allergies Medications fluticasone propionate (FLONASE) 50 mcg/actuation nasal spray 1 [place] by Nasal route daily. 10/27/2011 Active naproxen [...] Recently Relevant to Health Maintenance Care Teams Inside Sales Recruiter Relationship Specialty Start Date End Date Golden Henriquez MD [address] [place] [id number] PCP - General 07/21/01
[2024-12-25 10:36] LABS: Anion Gap 12 (12-20); Blood Urea Nitrogen 9 mg/dL (9-16); Calcium 9.1 mg/dL (8.4-10.2); Carbon Dioxide 25 mmol/L (22-29); Chloride 106 mmol/L (96-108); Creatinine Clr Calc Pharmacy 121.4; Estimated Glomerular Filt Rate > 60; Glucose Random 107 mg/dL (60-115); Potassium 4.5 mmol/L (3.3-5.1); Sodium 138 mmol/L (135-145)
--- NOTE | 2024-12-25 10:47 | PC.NURSE ---
dr la and anesthesia aware of facial asymmetry
[2024-12-25] MEDS: ceFAZolin Sodium/Dextrose,Iso 2 GM/50 ML PIGGYBACK IV ×2 (11:50→17:31)
--- NOTE | 2024-12-25 14:11 | W.PM.OPN ---
Operative Note Operative Note Date of Service: 12/25/24 Narrative: Operative note by [facility] Preoperative diagnosis:1. Left Carotid stenosis Postoperative diagnosis: Same Procedure: Left Carotid endarterectomy with patch angioplasty Surgeon:Abdi Peterson M.D. Numerical Analysis Group Manager: Tatyana Mars Anesthesia: General Specimens: 1 Drains: 1 Estimated blood loss: 100 mL Indications: 54-year-old gentleman who was discovered to high-grade left carotid stenosis. This was noted on CT angiogram. He now presents for operative intervention The patient has signed the informed consent after reviewing risks, complications, benefits, and alternatives previously discussed with the patient. The patient was given the opportunity to ask any additional questions or voice any concerns. All questions were answered to the patient's satisfaction. Procedure in detail: Patient was taken to the operating room and placed in a supine position and prepped and draped in sterile manner with ChloraPrep. Longitudinal incision was made along the anterior border of the left sternocleidomastoid carried down through the subcutaneous fat and fascia. Hemostasis was obtained with electrocautery. The platysma muscle was then divided. The carotid sheath was identified in open. The vagus nerve, Ancef cervicalis, and hypoglossal nerves were identified and avoided. The common internal and external carotids were then freed from the surrounding tissue. At this point, 5000 units of heparin was administered and allowed to circulate for 5 minutes time to take effect. The internal, common, external carotids were clamped in that order. Once this was accomplished, we proceeded with the procedure. The carotid bulb was opened with an 11 blade and extended with Gibson scissors through the very tight lesion into normal internal carotid artery. This was then extended down into the common carotid artery. We then placed a Valenzuela shunt. Then the plaque was sharply excised proximally and an eversion endarterectomy was performed successfully at the external. The plaque tapered nicely on to the internal and no tacking sutures were necessary. Heparinized saline was injected and no evidence of flapping or other debris was noted. The remaining carotid was examined, which showed no debris or flaps present. At this point a XenoSure patch was brought on to the field. This was anastomosed to the artery using a 6 0 Prolene in a running fashion. Once approximately 4/5 of the patch was sewn in the shunt was then removed. Prior to the last stitch the internal carotid was back bled through this. Heparinized saline was instilled into the carotid. The last stitch was tied. Hemostasis was excellent. The internal carotid was gently occluded while while of the external and internal were open in that order. Finally the internal was then opened and flow was restored to the entire system. Hemostasis was achieved with interrupted 7-0 Prolene sutures. The wound was irrigated thoroughly. We placed Vistaseal to obtain hemostasis.. Deep layer was reapproximated using a 2-0 poly Sorb and finally the superficial layer with a 3-0 Polysorb. The skin was closed in a subcuticular manner. The patient awoke and neurologic status was checked and appeared to be intact. Sponge, needle and instrument counts were correct. The patient tolerated the procedure well. Returned to recovery with stable vitals. This note is constructed using voice recognition software. While every effort has been made to ensure accuracy, community living coach errors may have been included. Thank you for allowing me to participate in the care of your patient. Yours sincerely, Abdi Peterson MD, FACS, R.P.V.I.
--- NOTE | 2024-12-25 15:14 | PM.CCHP ---
History of Present Illness Date of Service: 12/25/24 Chief Complaint: Status post elective carotid endarterectomy 54-year-old gentleman with underlying hypertension hyperlipidemia now postoperative day 0 after an elective left carotid endarterectomy being monitored in the intensive care unit. Review of Systems Constitutional: Constitutional: Denies daytime sleepiness, Denies excessive sweating, Denies fatigue, Denies fever(s), Denies lethargy, Denies malaise, Denies night sweats, Denies snoring and Denies weight loss Eyes: Eyes: Denies blurry vision and Denies itchy eyes ENT: Denies nasal congestion, Denies post nasal drip, Denies sinus pain, Denies sinus pressure and Denies other ( Thrush) Cardiovascular: Cardiovascular: Denies chest pain, Denies pedal edema, Denies dyspnea, Denies orthopnea and Denies paroxysmal nocturnal dyspnea Respiratory: Respiratory: Denies cough, Denies hemoptysis, Denies excessive phlegm production, Denies dyspnea, Denies snoring and Denies wheezing Gastrointestinal: Gastrointestinal: Denies abdominal pain and Denies heartburn Musculoskeletal: Musculoskeletal: Denies myalgias, Denies arthralgias and Denies joint swelling Integumentary/Breasts: Skin/Breast: Denies rash Neurologic: Denies memory loss and Denies seizure-like activity Psychiatric: Psychiatric: Denies abnormal sleep pattern, Denies anxiety and Denies memory loss Endocrine: Endocrine: Denies excessive sweating, Denies fatigue and Denies heat intolerance Hematologic/Lymphatic: Hematologic/Lymphatic: Denies easy bruising Allergic/Immunologic: Allergic/Immunologic: Denies itchy eyes, Denies seasonal rhinorrhea and Denies wheezing PMFSH Past Medical History Medical History (Updated 12/15/24 @ 10:36 by Marielle Calderon RN) Lumbar herniated disc Right arm numbness Back pain Environmental allergies Seasonal allergies Cervical neck pain with evidence of disc disease Sensation of chest tightness Carotid stenosis, left Decreased human intelligence strength of left hand Numbness and tingling in both hands Cervical radiculopathy due to degenerative joint disease of spine Peripheral neuropathy Anosmia Nasal congestion Nasal polyp Allergic rhinitis Malaise and fatigue Encounter for screening for malignant neoplasm of colon Elevated liver enzymes Obesity (BMI 30.0-34.9) Essential hypertension Dyslipidemia Family History Family History (Updated 11/16/24 @ 15:12 by Damon Sargent MD) Father CAD (coronary artery disease) Brother CAD (coronary artery disease) Surgical History Surgical History (Updated 12/25/24 @ 15:54 by Tommy Hebert MD) History of cardiac catheterization (12/14/24) Hx of colonoscopy (07/05/24) H/O eye surgery Social History Social History (Updated 12/15/24 @ 10:45 by Marielle Calderon RN) Household Members: Children Household Members Other:: Child and grandchild Housing: House Are you a primary body care manager to a significant other at home: No Do you presently have visiting nurse or other home services: No Alcohol intake: former Comment: aware of trip hazard Patient Tobacco Use Status: Former Tobacco user Tobacco use type: Cigarette Smoked in Last 30 Days: No e-Cigarette/Vaping Use: Never Used Second Hand Smoke Exposure: No Use of substances other than those prescribed or required for medical reasons: No Have you been hit, kicked, punched, or otherwise hurt by someone within the past year? If so, by whom?: No Do you feel safe in your current relationship?: No Current Relationship Is there a partner from a previous relationship who is making you feel unsafe now?: No Are you made to feel afraid or neglected: No Are you DNR?: No Advance Directives: No Advance Directives Information Provided: Yes Advance Directives on File: No Do you have a plan to hurt others: No Plan Recently lost weight without trying: No Nutrition Risks: No Nutritional Risk service: No Current occupational status: employed Cognitive needs: No Hearing needs: No Vision needs: Yes Meds Allergies Allergy/AdvReac Type Severity Reaction Status Date / Time shellfish derived Allergy Anaphylaxis, Verified 12/15/24 11:49 soft shelled Active Medications: Current Medications Acetaminophen (Acetaminophen 325 Mg Tablet) 650 mg PO Q6H PRN PRN Reason: Pain, Mild 1-3,fever,headache Aspirin (Aspirin Enteric Coated 81 Mg Tablet.) 81 mg PO BEDTIME PRICILLA Atorvastatin Calcium (Atorvastatin Calcium 80 Mg Tablet) 80 mg PO BEDTIME PRICILLA Azelastine HCl (Azelastine Hcl Nasal 137 Mcg/[place] 30 Ml) 2 spray NOSTRIL-B BID PRICILLA Calcium Carbonate (Calcium Carbonate 750 Mg Tab.Chew) 750 mg PO Q4H PRN PRN Reason: Heartburn Lactated Ringer's (Lr) 1,000 mls @ 100 mls/hr IVCONT .Q10H PRICILLA Last Admin: 12/25/24 09:40 Dose: 100 mls/hr Cefazolin Sodium/Dextrose (Ancef) 2 gm in 50 mls @ 100 mls/hr IV POSTOP ONE Stop: 12/25/24 18:29 Acetaminophen (Ofirmev) 1,000 mg in 100 mls @ 400 mls/hr IV ONCE PRN PRN Reason: Pain, Mild (Pain Scale 1-3) Stop: 12/25/24 20:20 Lisinopril (Lisinopril 10 Mg Tablet) 10 mg PO BEDTIME PRICILLA; Protocol Magnesium Hydroxide (Milk Of Magnesia 30 Ml Oral.Susp) 30 ml PO DAILY PRN PRN Reason: Constipation Melatonin (Melatonin 3 Mg Tablet) 6 mg PO BEDTIME PRN PRN Reason: Insomnia Montelukast Sodium (Montelukast Sodium 10 Mg Tablet) 10 mg PO BEDTIME PRICILLA Morphine Sulfate (Morphine Sulfate 2 Mg/Ml Cartridge) 2 mg IVPUSH Q4H PRN; Protocol PRN Reason: Pain, Severe (Pain Scale 7-10) Naloxone HCl (Naloxone Hcl 0.4 Mg/Ml Vial) 0.04 mg IVPUSH Q5M PRN PRN Reason: Excessive sedation or RR < 8 Non-Formulary Medication (Albina Allergy) 180 mg PO DAILY PRN PRN Reason: environmental allergy relief Oxycodone HCl (Oxycodone Hcl Immed Release 5 Mg Tablet) 5 mg PO Q4H PRN PRN Reason: Pain, Moderate(Pain Scale 4-6) Sodium Chloride (0.9 % Sodium Chloride Flush 3 Ml Syringe) 3 ml IVFLUSH QSHIFT [facility] Home Medications ?Medication ?Instructions ?Recorded ?Confirmed ?Last Taken ?Type Albina Allergy 180 mg PO DAILY PRN environmental 07/04/24 12/15/24 12/24/24 History allergy relief aspirin 81 mg tablet,delayed 81 mg PO BEDTIME 12/15/24 12/15/24 12/24/24 History release atorvastatin 80 mg tablet 80 mg PO BEDTIME 12/15/24 12/15/24 12/24/24 History Physical Exam Vital Signs: Vital Signs: Last Vital Signs Temp 97.4 F 12/25/24 14:45 Pulse 68 12/25/24 14:45 Resp 16 12/25/24 14:45 BP 172/94 H 12/25/24 14:45 Pulse Ox 94 12/25/24 14:45 O2 Del Method Room Air 12/25/24 14:45 BMI result Body Mass Index 32.2 Const: General: no acute distress, alert and awake Eyes: Sclerae: sclerae normal EOM: EOMs intact bilaterally Neck: Other: Last carotid endarterectomy site without hematoma. Neck: Yes no lymphadenopathy, Yes trachea midline and Yes supple Resp: Effort & Inspection: normal respiratory effort and no respiratory distress Auscultation: clear to auscultation bilaterally Cardio: Rate: regular rate Rhythm: regular rhythm Heart sounds: no gallops, no murmurs and no rubs GI: Palpation (GI): Soft to palpation and Other GI palpation findings present ( Nontender) Auscultation: normal bowel sounds Extrem: General: Yes no pedal edema, No clubbing and No cyanosis Results Labs 12/25/24 09:48 12/25/24 09:48 Labs: Laboratory Results - last 24 hr 12/25/24 09:48 MCV 86.7 MCH 29.7 MCHC 34.2 RDW 13.7 Plt Count 340 D MPV 10.3 Absolute Nucleated RBC 0.000 Nucleated RBC % (auto) 0.0 PT 10.6 L INR 0.9 APTT 27.5 Anion Gap 12 Estim Creat Clear Calc 121.4 Estimated GFR > 60 Random Glucose 107 Calcium 9.1 Assessment and Plan (1) Status post carotid endarterectomy: Status: Acute Plan Assessment: 54-year-old gentleman with underlying hypertension and hyperlipidemia now postoperative day 0 after an left carotid endarterectomy, recovering well. Plan: Neuro: No acute issues. Cardiac: Status post left carotid endarterectomy. Vascular surgery service care appreciated. Maintain systolic blood pressure 160. Pulmonary: No acute issues. Renal: No acute issues. Endo: No acute issues. GI: No acute issues. ID: No acute issues Heme/Onc: No acute issues. Psych: No acute issues. Miscellaneous: No acute issues. Prophylaxis: Per vascular surgery Diet: Regular
[2024-12-25] MEDS: Morphine Sulfate 2 MG/ML CARTRIDGE IVPUSH ×2 (15:20→21:34)
--- NOTE | 2024-12-25 15:25 | PHA.MEDREC ---
Pharmacy Consult ? Medication Reconciliation Pharmacy has completed the medication reconciliation.
[2024-12-25] MEDS: 0.9 % Sodium Chloride Flush 3 ML SYRINGE IVFLUSH (15:37)
[2024-12-25] MEDS: Labetalol HCL 100 MG/20 ML VIAL 20 MG IVPUSH ×3 (15:39→16:50)
[2024-12-25] MEDS: Azelastine HCl Nasal 137 MCG/Spray 30 ML 2 SPRAY NOSTRIL-B (17:30)
[2024-12-25] MEDS: niCARdipine HCL 25 MG in 0.9 % Sodium Chloride 240 ML 50 MG IVCONT (17:36)
--- NOTE | 2024-12-25 18:24 | PC.NURSE ---
Pt. arrived to ICU from PACU at approx. 1515- Pt. A&Ox4, speech clear, equal strength B/L, L pupil reactive, R pupil irregullary shaped and fixed (normal per pt.). Pt. c/o 8/10 pain to L neck Sx site, site with moderate swelling and small around of bloody drainage to dsg- drainage outlined. Dr. Peterson aware and at bedside to assess. Pt. medicated with PRNs per NOV, ice applied intermittently. Pt. SBPs 170s-200s- Dr. Peterson and Emilee Zelaya notified. Continue IVF per Dr. Peterson. PRN labetalol x3 given per NOV, early administrations per MD, with little effect. Cardene gtt started per NOV with good effect, current BP 132/65. Pt. on 2L O2, satting >92%. Sipping ice water, c/o mild throat discomfort- MD aware. Garcia remains in place, draining pale yellow urine. Family at bedside, updated by this RN. Plan of care ongoing.
[2024-12-25] MEDS: lisinopriL 10 MG TABLET PO (21:30)
[2024-12-25] MEDS: Atorvastatin Calcium 80 MG TABLET PO (21:30)
[2024-12-25] MEDS: Montelukast Sodium 10 MG TABLET PO (21:31)
[2024-12-26] VITALS (17 sets, daily range): BP systolic 104–165; BP diastolic 72–97; PULSE 70–107; RESP 14–25; TEMP 36.1–36.9; O2SAT 93–97; BMI 31.5
[2024-12-26] MEDS: Morphine Sulfate 2 MG/ML CARTRIDGE IVPUSH ×2 (05:13→09:23)
--- NOTE | 2024-12-26 05:48 | PC.NURSE ---
assumed care 1900, drowsy but easily arousable, SR on tele, wean cardene drip as tolerated per emar, LR d/c per examiner rating clerk. lizeth d/c this am. DVT 1200. surgical dressing with some staining but stable from previous shift. medicated for pain as needed. see emar. plan of care continues.
[2024-12-26 06:06] LABS: MANUAL DIFF FLAG NO
[2024-12-26 06:18] LABS: Basophils Percent Auto 0.1 % (0-2); Eosinophils Percent Auto 0.1 % (0-4); Hematocrit 41.2 % (42.0-52.0); Hemoglobin 14.5 g/dl (14.0-18.0); Imm Gran Abs Auto 0.08 X10*3/uL (0.00-0.03); Imm Gran Pct Auto 0.6 % (0.0-0.4); Lymphocytes Percent Auto 6.7 % (20-40); Mean Corpuscular HGB Conc 35.2 g/dl (31.0-36.0); Mean Corpuscular Hemoglobin 30.4 pg (27.0-33.0); Mean Corpuscular Volume 86.4 fL (80.0-98.0); Mean Platelet Volume 10.2 fL (9.4-12.4); Monocytes Absolute Auto 1.3 X10*3/uL (0.1-1.2); Monocytes Percent Auto 8.7 % (2-11); Neutrophils Absolute Auto 12.2 x10*3/uL (2.0-8.3); Neutrophils Percent Auto 83.8 % (45-73); Platelet Count 339 X10*3/uL (160-400); Red Blood Count 4.77 X10*6/uL (4.60-5.80); Red Cell Distribution Width 13.7 % (11.0-16.0); White Blood Count 14.5 X10*3/uL (4.8-10.8)
[2024-12-26 06:27] LABS: Anion Gap 13 (12-20); Blood Urea Nitrogen 7 mg/dL (9-16); Calcium 8.9 mg/dL (8.4-10.2); Carbon Dioxide 25 mmol/L (22-29); Chloride 102 mmol/L (96-108); Creatinine Clr Calc Pharmacy 137.3; Estimated Glomerular Filt Rate > 60; Glucose Random 131 mg/dL (60-115); Phosphorus 3.3 mg/dL (2.7-4.5); Potassium 4.6 mmol/L (3.3-5.1); Sodium 135 mmol/L (135-145)
--- NOTE | 2024-12-26 07:22 | HO.POSTANES ---
Post Anesthesia Evaluation Post Anesthesia Evaluation Date of Service: 12/26/24 Vital Signs: Vital Signs Temp Pulse Resp BP Pulse Ox O2 Del Method O2 Flow Rate 12/26/24 07:00 70 15 104/89 97 Nasal Cannula 2 12/26/24 06:00 70 14 122/88 97 Nasal Cannula 2 12/26/24 05:00 89 18 159/97 H 97 Room Air 2 12/26/24 04:27 80 120/90 H 12/26/24 04:00 97.5 F 77 16 154/82 H 96 Nasal Cannula 2 12/26/24 03:00 80 16 149/88 H 96 Nasal Cannula 2 12/26/24 02:00 80 14 148/85 H 97 Nasal Cannula 2 12/26/24 01:00 75 18 145/86 H 97 Nasal Cannula 2 12/26/24 00:37 75 155/83 H 12/26/24 00:00 96.9 F 82 17 165/86 H 97 Nasal Cannula 2 12/25/24 23:00 75 17 134/98 H 97 Nasal Cannula 2 12/25/24 21:51 73 14 122/95 H 96 Nasal Cannula 2 12/25/24 21:30 120/97 H 12/25/24 20:58 73 16 110/80 96 Nasal Cannula 2 12/25/24 20:49 72 116/72 12/25/24 20:00 76 16 103/75 96 Nasal Cannula 2 12/25/24 19:40 77 141/70 H Anesthesia: General Endotracheal-GETA Mental Status: Sedated Pain Control: Satisfactory Nausea/Vomiting: None Hydration: Adequate Anesthesia-Related Issues: No Anes. Related Issues
[2024-12-26] MEDS: 0.9 % Sodium Chloride Flush 3 ML SYRINGE IVFLUSH (09:35)
[2024-12-26] MEDS: Azelastine HCl Nasal 137 MCG/Spray 30 ML 2 SPRAY NOSTRIL-B (09:36)
--- NOTE | 2024-12-26 09:57 | P.DS_ITS ---
DS: Providers Provider Date of Service: 12/26/24 Date of admission: 12/25/24 09:13 Date of discharge: 12/26/24 Primary care physician: Annelise Atkinson MD DS: Diagnosis Discharge Diagnosis (1) Status post carotid endarterectomy: Status: Acute DS: Summary Hospital Course Hospital Course: Mariano is s/p left carotid endarterectomy on 12/25. The surgery went well with minimal bleeding and no complications. He was in the ICU last night and did well. He has been eating and drinking well. His Garcia is getting removed this morning as well as the A line and IVF. We will get him OOB. His surgical site has some dried blood noted on the most distal aspect. The bandage was changed and there was no new bleeding. The steri strips remain in place. The pt states his pain is at an 8/10 this morning but has been tolerable. Labwork was reviewed this morning and remains stable; he has a slight leukocytosis without signs/symptoms of infection. His H/H remains stable. His BP readings remain stable. He will be ready for discharge home this afternoon. He states his daughter will be able to help him at home. I discussed with him taking Tylenol and Ibuprofen for pain relief. We discussed the importance of not driving for the next 2w and to not lift anything more than a gallon of milk (appx 5 pounds) for the next 2-3 weeks. I discussed the importance of relaxing but not being completely sedentary; he can do light physical activity. I discussed to keep the incision site clean and dry and that the steri strips will fall off on their own, likely in a week or so. We will have him follow up in the office for his 2w follow up on 01/09. If there are any concerns with the incision site including warmth, redness, bleeding/drainage, or any other concerns, we discussed to call our office. If he experiences any dizziness, headaches, lightheadedness, or stroke-like symptoms, we discussed to go to the ER. Time Attestation Discharge Coordination Time (in mins): >45 minutes Quality: Safe Use of Opioids Does Pt have an Active Cancer Diagnosis on the Problem List?: No Quality: Stroke Does the patient have a stroke diagnosis?: No Physical Exam Vital Signs: Vital Signs: Last Vital Signs Temp 97.1 F 12/26/24 08:00 Pulse 89 12/26/24 09:00 Resp 15 12/26/24 09:00 BP 109/85 12/26/24 09:00 Pulse Ox 95 12/26/24 09:00 O2 Del Method Nasal Cannula 12/26/24 09:00 O2 Flow Rate 2 12/26/24 09:00 BMI result Body Mass Index 31.5 Const: General: comfortable and no acute distress Orientation/consciousness: patient oriented x3 HEENT: Ears: hearing grossly normal bilaterally Resp: Effort & Inspection: normal respiratory effort and able to speak in complete sentences Auscultation: clear to auscultation bilaterally Cardio: Rate: regular rate Rhythm: regular rhythm Heart sounds: S1 normal heart sound present and S2 normal heart sound present Bruits: no abdominal aortic bruits, no carotid bruits, no femoral bruits and no renal bruits GI: Palpation (GI): No Abdominal aortic bruit present Neuro: General: patient oriented x3 Cranial nerves: Yes CN's II-XII intact bilaterally DS: Data Data Completed and Pending Pending studies at discharge: Pending at discharge 12/25/24 13:14 Surgical [PTH] Routine Labs on day of discharge: Laboratory Results - last 24 hr 12/25/24 12/26/24 09:48 06:00 WBC 8.1 14.5 H RBC 4.89 4.77 Hgb 14.5 14.5 Hct 42.4 41.2 L MCV 86.7 86.4 MCH 29.7 30.4 MCHC 34.2 35.2 RDW 13.7 13.7 Plt Count 340 D 339 MPV 10.3 10.2 Immature Gran % (Auto) 0.6 H Neut % (Auto) 83.8 H Lymph % (Auto) 6.7 L [place] % (Auto) 8.7 Eos % (Auto) 0.1 Baso % (Auto) 0.1 Lymph # (Auto) 1.0 L [place] # (Auto) 1.3 H Eos # (Auto) 0.0 Baso # (Auto) 0.0 Abs Immat Gran (auto) 0.08 H Absolute Neuts (auto) 12.2 H Absolute Nucleated RBC 0.000 0.000 Nucleated RBC % (auto) 0.0 0.0 PT 10.6 L INR 0.9 APTT 27.5 Sodium 138 135 Potassium 4.5 4.6 Chloride 106 102 Carbon Dioxide 25 25 Anion Gap 12 13 BUN 9 7 L Creatinine 0.80 0.70 Estim Creat Clear Calc 121.4 137.3 Estimated GFR > 60 > 60 Random Glucose 107 131 H Calcium 9.1 8.9 Phosphorus 3.3 Magnesium 2.0 Albumin 4.0 Discharge Plan Discharge Anticipated Discharge Date/Time: 12/26/24 12:40 Patient Disposition: Home, Self-Care Discharge Diagnosis: s/p left carotid endarterectomy Referrals: Annelise Atkinson MD [Primary Care Provider] - 1 Week Discharge Medications: Continued azelastine 137 mcg (0.1 %) aerosol,spray 2 spray intranasal BID Qty: 30 0RF Rx Instructions: administer into each nostril lisinopril 10 mg tablet 10 mg PO BEDTIME Qty: 90 1RF montelukast 10 mg tablet 10 mg PO BEDTIME Qty: 90 1RF atorvastatin 80 mg tablet 80 mg PO BEDTIME aspirin 81 mg tablet,delayed release (DR/EC) 81 mg PO BEDTIME Albina Allergy 180 mg PO DAILY PRN (Reason: environmental allergy relief) Discharge Orders: Discharge Order (Routine); Ordered 12/26/24 Ordered By: Tatyana Carter Diet: Advance to usual diet Activity on Discharge: As tolerated Stand Alone Forms: Patient Portal Discharge page Print Language: Vietnamese Activity Restrictions/Additional Instructions: Do not lift more than a gallon of milk (appx 5 pounds). NO driving until your follow up appt, in 2 weeks. Please take the next 2 weeks to relax but do not be sedentary. Light physical activity only. You may take Ibuprofen or Tylenol for pain control. Shave carefully around the incision site. The steri strips will fall off on their own. The sutures are dissolvable. Check your incision daily for any signs of infection including redness, warmth, swelling, or drainage. Follow up appt at Dr Peterson's office on 01/09. Care Plan Goals: Keep incision site clean and dry.. Do not lift anything heavier than 5 pounds for 2-3 weeks. No driving until you are cleared on your 2 week follow up. Maintain a healthy, well balanced diet with protein, vegetables, and fruit. Health Concerns: Headaches, dizziness, lightheadedness, any stroke-like symptoms, please go to the ER. Plan of Treatment: Keep the incision site clean and dry. Be careful shaving around the area. Assessment: s/p left carotid endarterectomy.
--- NOTE | 2024-12-26 10:01 | MHC.CM.PN ---
Met w/pt to review d/c planning needs: pt resides alone, is independent w/all ADL's, drives and has no barriers to care. Pt will return to home with family support: Pt has cell and will contact friend or family for transportation. HCP declined.
--- NOTE | 2024-12-26 13:37 | PC.NURSE ---
Assumed care at 0700. Nicardepine drip paused. Pt due to void by 1200. Pt fully alert and oriented but drowsy. Per surgical PA, OK to remove a-line. Pain 04/29, medicated per NOV. Per Dr. Peterson, dressing removed, steri-strips retained. Pt up to chair at approx 1100. Pt voided at approx 1200. Discharge education provided; IVs and cardiac monitoring removed.
== END 2024-12-26 13:53 | disposition home or self-care (01) | DRG 24 ==
LOC: HO.SSSA 10:08 → HO.ICU 14:11
PROVIDERS: Physician Assistant Surgical; Admitting Provider Surgery Vascular Surgery; PCP Internal Medicine; Visit Provider Internal Medicine Pulmonary Disease
PROC: 03CJ0ZZ Extirpation of Matter from Left Common Carotid Artery, Open Approach (ICD-10-PCS; CPT 35301; principal; 2024-12-25 10:50)
DX: I65.22 Occlusion and stenosis of left carotid artery (principal); E78.5 Hyperlipidemia, unspecified; I10 Essential (primary) hypertension; Z79.82 Long term (current) use of aspirin; Z87.891 Personal history of nicotine dependence; Z79.899 Other long term (current) drug therapy
CPT/HCPCS: 36415; 80048; 82040; 83735; 84100; 85025; 85027; 85610; 85730; 86850; 86900; 86901; 88304; 88311; A4649; C1768; C9250; J0330; J0690; J1100; J1644; J1920; J2003; J2250; J2270; J2371; J2404; J2405; J2704; J2795; J3010; J7120

== ENCOUNTER → 2024-12-25 09:13 | Outpatient (BNV) | payer BC, SELFPAY | PROVIDERS: Admitting Provider Surgery Vascular Surgery; PCP Internal Medicine; Visit Provider Internal Medicine Pulmonary Disease | DX: I65.22 Occlusion and stenosis of left carotid artery (principal); I10 Essential (primary) hypertension; E78.5 Hyperlipidemia, unspecified | CPT/HCPCS: 99222 ==

== ENCOUNTER → 2024-12-25 09:13 | Outpatient (BNV) | payer BC, SELFPAY | PROVIDERS: Admitting Provider Surgery Vascular Surgery; PCP Internal Medicine; Visit Provider Surgery Vascular Surgery | DX: Z98.890 Other specified postprocedural states (principal) | CPT/HCPCS: 35301; 99024 ==

== ENCOUNTER 2024-12-30 17:30 | Emergency (ER) | payer BC, SELFPAY ==
--- NOTE | 2024-12-30 17:35 | ED.GENADULT ---
HPI - General Adult General Chief complaint: Wound/Laceration Stated complaint: neck surgery 12/25 ,wont stop bleeding Time Seen by Provider: 12/30/24 18:17 Source: patient, RN notes reviewed and old records reviewed Mode of arrival: ambulatory Limitations: no limitations History of Present Illness ED Provider: Lisseth HPI narrative: 54-year-old male presents for evaluation of bleeding from a surgical wound. The patient had a carotid endarterectomy on 12/25/[address] Peterson He reports he had some bleeding from the bottom of the wound starting 2 days ago. He reports he had bled through 3 dressing changes today He has minimal pain to the area, denies any fevers, the discharge is bloody and not foul-smelling He was on a baby aspirin which she has been taking Related Data Home Medications ?Medication ?Instructions ?Recorded ?Confirmed Albina Allergy 180 mg PO DAILY PRN environmental 07/04/24 12/27/24 allergy relief aspirin 81 mg tablet,delayed 81 mg PO BEDTIME 12/15/24 12/27/24 release atorvastatin 80 mg tablet 80 mg PO BEDTIME 12/15/24 12/27/24 Previous Rx's ?Medication ?Instructions ?Recorded azelastine 137 mcg (0.1 %) nasal 2 spray intranasal BID #30 mL 09/24/23 spray lisinopril 10 mg tablet 10 mg PO BEDTIME #90 tabs 12/20/24 montelukast 10 mg tablet 10 mg PO BEDTIME #90 tabs 12/20/24 Allergies Allergy/AdvReac Type Severity Reaction Status Date / Time shellfish derived Allergy Anaphylaxis, Verified 12/30/24 17:39 soft shelled Review of Systems Constitutional: Constitutional: Denies body ache(s), Denies chills, Denies fever(s) and Denies headache(s) ENT: Denies vertigo, Denies dizziness and Denies headache(s) Cardiovascular: Cardiovascular: Denies dyspnea Respiratory: Respiratory: Denies cough and Denies dyspnea Gastrointestinal: Gastrointestinal: Denies abdominal pain, Denies nausea and Denies vomiting Musculoskeletal: Musculoskeletal: Denies back pain Integumentary/Breasts: Skin/Breast: Reports wounds Neurologic: Denies vertigo, Denies dizziness and Denies headache(s) [facility] Past Medical History Medical History (Updated 12/30/24 @ 19:10 by Medhat Montanez) Lumbar herniated disc Right arm numbness Back pain Environmental allergies Seasonal allergies Cervical neck pain with evidence of disc disease Sensation of chest tightness Carotid stenosis, left 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 authorization manager 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 of left hand Numbness and tingling in both hands Cervical radiculopathy due to degenerative joint disease of spine Peripheral neuropathy Anosmia Nasal congestion Nasal polyp Allergic rhinitis Malaise and fatigue Encounter for screening for malignant neoplasm of colon Elevated liver enzymes Obesity (BMI 30.0-34.9) Essential hypertension Dyslipidemia Surgical History (Updated 12/25/24 @ 15:54 by Tommy Hebert MD) History of cardiac catheterization (12/14/24) Hx of colonoscopy (07/05/24) H/O eye surgery Family History Family History (Updated 11/16/24 @ 15:12 by Damon Sargent MD) Father CAD (coronary artery disease) Brother CAD (coronary artery disease) Social History Social History (Updated 12/15/24 @ 10:45 by Marielle Calderon RN) Household Members: Children Household Members Other:: Child and grandchild Housing: House Are you a primary career development manager to a significant other at home: No Do you presently have visiting nurse or other home services: No Alcohol intake: former Comment: aware of trip hazard Patient Tobacco Use Status: Former Tobacco user Tobacco use type: Cigarette Smoked in Last 30 Days: No e-Cigarette/Vaping Use: Never Used Second Hand Smoke Exposure: No Advance Directives: No Advance Directives Information Provided: No Do you have a plan to hurt others: No Plan service: No Current occupational status: employed Cognitive needs: No Hearing needs: No Vision needs: Yes Physical Exam ED Vital Signs: Vital Signs - 24 hr 12/30/24 17:38 Temperature 97.7 F Pulse Rate 71 Respiratory Rate 16 Blood Pressure 202/102 H Pulse Oximetry 95 Oxygen Delivery Method Room Air BMI result Body Mass Index 32.7 Const General: healthy appearing, comfortable, no acute distress, alert and awake Nutritional Appearance: well nourished Orientation/consciousness: patient oriented x3 HENMT Head: Yes normocephalic and Yes atraumatic Throat: Yes posterior oropharynx normal Eyes Eyelids: Yes eyelids normal Conjunctivae: conjunctivae normal Sclerae: sclerae normal Corneas: corneas normal Pupils: Equal, round and reactive pupils present EOM: EOMs intact bilaterally Neck Other: Surgical incision to the left neck with no active bleeding. There was some dried blood around the inferior aspect of the wound. No erythema, no significant anterior neck edema, trachea is midline. Neck: Yes full ROM Resp Effort & Inspection: normal respiratory effort, able to speak in complete sentences and not labored Skin General skin exam: elasticity normal Neuro General: patient oriented x3 Cranial nerves: Yes Equal, round and reactive pupils present and Yes Bilaterally intact EOM present Cognition (Neuro): normal cognition Extrem Other: Moving all extremities well without any obvious deformities Course Course Course Narrative: This is a rapid medical exam performed by Harish Mendes NP: Additional HPI, ROS, PE not included below will be deferred to primary provider. Patient is a 54-year-old male with recent carotid endarectomy on 12/25, d/c'd on 12/26 presenting with complaint of bleeding from surgical site. States he bled through several gauze pads today. Denies any pain. Plan: will check basic labs Medications Administered Discontinued Medications Generic Name Dose Route Start Last Admin Trade Name Freq PRN Reason Stop Dose Admin Acetaminophen 975 mg 12/30/24 18:50 12/30/24 18:56 Acetaminophen 325 Mg Tablet PO 12/30/24 18:51 975 mg ONCE ONE Administration Medical Decision Making Medical Decision Making [facility] Narrative: 54-year-old male presents for evaluation of bleeding from a surgical wound. He had a recent carotid endarterectomy. There was no active bleeding, he had labs that did not show any significant anemia, there was no evidence of infection or hematoma. I discussed with Dr. Peterson who recommends Steri-Strips to help slow down the bleeding at home. I cleaned the wound myself and applied the Steri-Strips as well as a sterile dressing. The patient's blood pressure was elevated on arrival. As high as 202/102. This improved to 183/99 without intervention. He takes lisinopril daily and reports being compliant. He reports that he drinks approximately 2 energy drinks daily which I encouraged him to cut back on. He will follow up with his primary doctor regarding his elevated blood pressure readings Differential Diagnosis Differential Diagnoses: The differential diagnosis associated with the presentation includes Surgical site dehiscence Hematoma Cellulitis Abscess Hypertension Consult Healthcare Provider Management of the patient was discussed with: Laundry Machine Operator (Dr. Peterson, vascular surgery) Lab Data [facility] Lab Attestation statement: I reviewed the patient's lab results. No leukocytosis or significant anemia. Normal platelet count. No electrolyte abnormalities 12/30/24 17:50 12/30/24 17:50 Labs: Lab Results 12/30/24 Range/Units 17:50 WBC 10.7 (4.8-10.8) X10*3/uL RBC 4.70 (4.60-5.80) X10*6/uL Hgb 14.0 (14.0-18.0) g/dl Hct 40.2 L (42.0-52.0) % MCV 85.5 (80.0-98.0) fL MCH 29.8 (27.0-33.0) pg MCHC 34.8 (31.0-36.0) g/dl RDW 13.4 (11.0-16.0) % Plt Count 350 (160-400) X10*3/uL MPV 9.9 (9.4-12.4) fL Immature Gran % (Auto) 0.2 (0.0-0.4) % Neut % (Auto) 58.9 (45-73) % Lymph % (Auto) 23.8 (20-40) % [place] % (Auto) 12.1 H (2-11) % Eos % (Auto) 4.3 H (0-4) % Baso % (Auto) 0.7 (0-2) % Lymph # (Auto) 2.5 (1.2-4.9) X10*3/uL [place] # (Auto) 1.3 H (0.1-1.2) X10*3/uL Eos # (Auto) 0.5 H (0.0-0.4) X10*3/uL Baso # (Auto) 0.1 (0.0-0.2) X10*3/uL Abs Immat Gran (auto) 0.02 (0.00-0.03) X10*3/uL Absolute Neuts (auto) 6.3 (2.0-8.3) x10*3/uL Absolute Nucleated RBC 0.000 (0.0-0.012) X10*3/uL Nucleated RBC % (auto) 0.0 (0.0-0.2) /100WBC Sodium 141 (135-145) mmol/L Potassium 4.1 (3.3-5.1) mmol/L Chloride 108 (96-108) mmol/L Carbon Dioxide 24 (22-29) mmol/L Anion Gap 13 (12-20) BUN 11 (9-16) mg/dL Creatinine 0.99 (0.5-1.4) mg/dL Estim Creat Clear Calc 98.8 Estimated GFR > 60 Random Glucose 102 (60-115) mg/dL Calcium 9.1 (8.4-10.2) mg/dL Discharge Plan Discharge Clinical Impression: Encounter for examination of surgical site, Hypertension Patient Disposition: Home, Self-Care Instructions: Steristrips (ED) Additional Instructions: Keep the area clean and dry Follow-up with Dr. Peterson's office, call Wednesday to schedule an appointment. Return for new or worsening symptoms, especially severe pain, swelling or fever Do not remove the dressing until Wednesday Prescriptions: No Action azelastine 137 mcg (0.1 %) aerosol,spray 2 spray intranasal BID Qty: 30 0RF Rx Instructions: administer into each nostril lisinopril 10 mg tablet 10 mg PO BEDTIME Qty: 90 1RF montelukast 10 mg tablet 10 mg PO BEDTIME Qty: 90 1RF atorvastatin 80 mg tablet 80 mg PO BEDTIME aspirin 81 mg tablet,delayed release (DR/EC) 81 mg PO BEDTIME Albina Allergy 180 mg PO DAILY PRN (Reason: environmental allergy relief) Print Language: Sudanese
[2024-12-30 17:38] VITALS: BP 202/102; PULSE 71; RESP 16; TEMP 36.5; O2SAT 95; BMI 32.7
[2024-12-30 17:55] LABS: MANUAL DIFF FLAG NO
[2024-12-30 17:57] LABS: Basophils Absolute Auto 0.1 X10*3/uL (0.0-0.2); Basophils Percent Auto 0.7 % (0-2); Eosinophils Absolute Auto 0.5 X10*3/uL (0.0-0.4); Eosinophils Percent Auto 4.3 % (0-4); Hematocrit 40.2 % (42.0-52.0); Imm Gran Abs Auto 0.02 X10*3/uL (0.00-0.03); Imm Gran Pct Auto 0.2 % (0.0-0.4); Lymphocytes Absolute Auto 2.5 X10*3/uL (1.2-4.9); Lymphocytes Percent Auto 23.8 % (20-40); Mean Corpuscular HGB Conc 34.8 g/dl (31.0-36.0); Mean Corpuscular Hemoglobin 29.8 pg (27.0-33.0); Mean Corpuscular Volume 85.5 fL (80.0-98.0); Mean Platelet Volume 9.9 fL (9.4-12.4); Monocytes Absolute Auto 1.3 X10*3/uL (0.1-1.2); Monocytes Percent Auto 12.1 % (2-11); Neutrophils Absolute Auto 6.3 x10*3/uL (2.0-8.3); Neutrophils Percent Auto 58.9 % (45-73); Platelet Count 350 X10*3/uL (160-400); Red Cell Distribution Width 13.4 % (11.0-16.0); White Blood Count 10.7 X10*3/uL (4.8-10.8)
[2024-12-30 18:10] LABS: Anion Gap 13 (12-20); Blood Urea Nitrogen 11 mg/dL (9-16); Calcium 9.1 mg/dL (8.4-10.2); Carbon Dioxide 24 mmol/L (22-29); Chloride 108 mmol/L (96-108); Creatinine Clr Calc Pharmacy 98.8; Estimated Glomerular Filt Rate > 60; Glucose Random 102 mg/dL (60-115); Potassium 4.1 mmol/L (3.3-5.1); Sodium 141 mmol/L (135-145)
[2024-12-30] MEDS: Acetaminophen 325 MG TABLET 975 MG PO (18:56)
[2024-12-30 19:15] VITALS: BP 183/99; PULSE 63; RESP 16; TEMP 36.7; O2SAT 95
== END 2024-12-30 19:30 | disposition home or self-care (01) ==
PROVIDERS: Registered Nurse Emergency; Emergency Provider Emergency Medicine Emergency Medical Services; PCP Internal Medicine
DX: L76.22 Postprocedural hemorrhage of skin and subcutaneous tissue following other procedure (principal); Z79.899 Other long term (current) drug therapy
CPT/HCPCS: 36415; 80048; 85025; 99283; 99284

== ENCOUNTER 2025-01-09 09:52 | Outpatient (AMB) | payer BC, SELFPAY ==
[2025-01-09 09:54] VITALS: BP 160/100; BMI 32.7
--- NOTE | 2025-01-09 09:54 | MHC.OFFVIS ---
Vital Signs 01/09/25 09:54 01/09/25 10:00 Height 5 ft 8 in Weight 215 lb BMI 32.7 BP 160/100 H 180/104 H Blood Pressure Location Rt brachial Lt brachial Position Sitting Sitting Intake Visit Reasons: 2w follow up s/p L CEA 12/25/2024 Intake Note: 2 week follow up s/p Left CEA 12/25/24. Pt states no issues, still has numbness over treated area. 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 The procedure was executed on December 25, 2024, and soon after, the patient experienced postoperative concerns that led to an emergency room evaluation where the surgical incision was found satisfactory and the patient was discharged. Adhesive strips applied to the wound aided in drying, resolving wound-related concerns by the next day. Postoperatively, the patient experienced significant fatigue in the first week, maintaining immobility with gradual resumption of daily activities by the second week. Normal postoperative symptoms presented, including incision site numbness and a temporary palpable mass attributed to muscular suturing, with anticipated resolution over the coming months. Gradual recovery noted by increased mobility and energy. Lifestyle adjustments post-operatively involved cessation of high-caffeine and sugary drinks, switching to low-sugar alternatives, aiming for better hypertension control. This underscores the need for vigilant blood pressure management moving forward. 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 Numbness and tingling in both hands Cervical radiculopathy due to degenerative joint disease of spine Peripheral neuropathy Anosmia Nasal congestion Nasal polyp Allergic rhinitis Malaise and fatigue Encounter for screening for malignant neoplasm of colon Elevated liver enzymes Obesity (BMI 30.0-34.9) Essential hypertension Dyslipidemia Surgical History History of cardiac catheterization (12/14/24) Hx of colonoscopy (07/05/24) H/O eye surgery Family History Father CAD (coronary artery disease) Brother CAD (coronary artery disease) Social History Household Members: Children Household Members Other:: Child and grandchild Housing: House Are you a primary foster care case manager to a significant other at home: No Do you presently have visiting nurse or other home services: No Alcohol intake: former Comment: aware of trip hazard Patient Tobacco Use Status: Former Tobacco user Tobacco use type: Cigarette e-Cigarette/Vaping Use: Never Used Second Hand Smoke Exposure: No service: No Current occupational status: employed Cognitive needs: No Hearing needs: No Vision needs: Yes Review of Systems Const All systems reviewed & are unremarkable except as noted in HPI and below Reports no additional complaints ENT Reports Normal hearing present Card Denies chest pain, Denies chest pain at rest, Denies chest pain with activity and Denies pedal edema Resp Denies cough GI Denies abdominal pain Musc Denies abnormal gait, Denies muscle cramps and Denies radiating pain into limb Skin/Breast Denies skin ulcer and Denies wounds Neuro Reports Normal hearing present and Denies abnormal gait Psych Reports no additional complaints Physical Exam Vital Signs: Last Vital Signs BP 180/104 H 01/09/25 10:00 BMI result Body Mass Index 32.7 Const General: cooperative, healthy appearing and comfortable Orientation/consciousness: oriented to person, oriented to place and oriented to time HEENT Head: Yes normal to inspection Neck Neck: Yes normal visual inspection Carotids: no bruits Chest Chest palpation & inspection: normal inspection of the chest Resp Effort & Inspection: normal respiratory effort and able to speak in complete sentences Auscultation: clear to auscultation bilaterally, no crackles, no rales, no rhonchi and no wheezes Cardio Rate: regular rate Rhythm: regular rhythm Heart sounds: S1 normal heart sound present and S2 normal heart sound present Bruits: no carotid bruits Peripheral pulses: Peripheral pulses 2+ throughout GI Inspection: Yes normal to inspection Skin Other: incision healing well Wounds: no wounds Hair: normal Neuro General: oriented to person, oriented to place and oriented to time Cranial nerves: Yes CN's II-XII intact bilaterally and Yes Normal hearing present Cognition (Neuro): normal cognition Motor exam (neuro): 5/5 motor strength present throughout Extrem Other: venous exam: No significant superficial varicosities or spider telangiectasias, minimal edema General: No clubbing, No cyanosis and No edema Psych Appearance: grossly normal Mental Status: mental status grossly normal Speech and movement: Normal speech and movement present Assessment & Plan Assessment & Plan (1) Bilateral carotid artery stenosis: Comment: 12/25/2024 - left carotid endarterectomy Code(s): I65.23 - Occlusion and stenosis of bilateral carotid arteries Category: Medical Plan: The patient's postoperative recovery following left carotid endarterectomy is advancing appropriately with expected healing at the incision site. We plan to conduct a follow-up Doppler ultrasound in three months to examine bilateral carotid patency, commencing a routine monitoring schedule moving forward. The patient has already made commendable lifestyle changes to control hypertension, including eliminating certain beverages and adopting lower-sugar alternatives, an approach that should improve long-term cardiovascular risk profiles. Further evaluations regarding hypertension control will be coordinated with the primary care provider, Dr. Annelise Ruiz. Resumption of all routine activities, with caution towards the residual numbness and incision lump, has been approved. Patient was informed and verbally consented to the use of an ambient scribe for clinic note documentation during this visit. Orders: Orders US carotid duplex BI 3 Months I65.23 - Occlusion and stenosis of bilateral carotid arteries Patient Instructions: - Use soap and water for normal washing of the incision site; ensure cleanliness - Observe any signs of incision changes, reporting concerns promptly - Resume exercise and gym activities as tolerated, avoid overstressing - Continue home monitoring of blood pressure regularly - Schedule follow-up in three months for ultrasound assessment - Avoid high-caffeine and sugary drinks to aid blood pressure management - Attend scheduled appointment with Dr. Annelise Ruiz in January for hypertension evaluation - Complete and return hospital survey if received in the mail - Contact us for urgent issues or concerns regarding recovery. Coding Level of Care Code Est Pt Level 4 (04969) Complex EM visit Add On G2211 Diagnoses Bilateral carotid artery stenosis I65.23
[2025-01-09 10:00] VITALS: BP 180/104
--- OUTSIDE RECORDS SUMMARY | 2025-01-09 11:04 | XMS_ITS | Clinical Summary ---
Author Organization [facility] it Address [address] [place] [address] Care Team Providers Care Attic Blower Name Role Phone Golden Henriquez MD Primary Care Provider [phone] Allergies No known active allergies Medications fluticasone propionate (FLONASE) 50 mcg/actuation nasal spray 1 [place] by Nasal route daily. 10/27/2011 Active naproxen [...] 2022 COVID-19 Vaccine (2023-2 5 season) 2024 Cholesterol Screening (Lipid Panel) 09/12/2024 2011 Colorectal Cancer Screening: Colonoscopy 09/12/2024 Depression Screening 09/12/2024 HIV Screening 09/12/2024 Hepatitis C Screening 09/12/2024 Social Influencers of Health Screening 09/12/2024 Influenza Vaccine (Season Ended) 2025 05/28/2010, 06/07/2009 HIB Vaccines Aged Out No longer eligi [...] age to complete this topic Meningococcal B Vaccine Aged Out No l onger eligible based on patient's age to complete [...] Recently Relevant to Health Maintenance Care Teams Attic Blower Relationship Specialty Start Date End Date Golden Henriquez MD [address] [place] [id number] PCP - General 07/21/01
== END 2025-01-09 10:15 | disposition home or self-care (01) ==
LOC: HO.HVS 09:53
PROVIDERS: PCP Internal Medicine; Visit Provider Surgery Vascular Surgery
DX: I65.23 Occlusion and stenosis of bilateral carotid arteries (principal)
CPT/HCPCS: 99024

== ENCOUNTER 2025-04-25 14:45 | Outpatient (REF) | payer BC, SELFPAY ==
--- NOTE | ~2025-04-25 | US_ITS ---
CLINICAL HISTORY: I65.23 - Occlusion and stenosis of bilateral carotid arteries --- Additional Notes or Special Instructions: Status post left carotid endarterectomy US Bilateral Carotid Duplex Comparison: None provided Findings: No significant plaque within the common carotid arteries. No significant plaque within the carotid bulbs. Normal color doppler and waveforms morphology. Peak systolic velocities: Right CCA: 158 cm/s. Right ICA: 124 cm/s. ICA/CCA ratio: 0.3. Right ECA: 176 cm/sec. Right vertebral artery flow antegrade. Left CCA: 76 cm/s. Left ICA: 86 cm/s. ICA/CCA ratio: 0.8. Left ECA: 162 cm/sec. Left vertebral artery flow antegrade. IMPRESSION: Normal carotid velocities, no significant stenosis (0-49% stenosis). This document has been electronically signed by: Mal Reed MD on 04/25/2025 16:04:01
--- OUTSIDE RECORDS SUMMARY | 2025-04-25 15:12 | XMS_ITS | Clinical Summary ---
Author Organization [facility] it Address [address] [place] [address] Care Team Providers Care Qc Analyst Name Role Phone Golden Henriquez MD Primary Care Provider [phone] Allergies No known active allergies Medications fluticasone propionate (FLONASE) 50 mcg/actuation nasal spray 1 [place] by Nasal route daily. 10/27/2011 Active naproxen [...] Vaccines (1 of 2) 2022 COVID-19 Vaccine ( - 2023-2 5 season) 2024 Cholesterol Screening (Lipid Panel) 09/12/2024 2011 Colorectal Cancer Screening: Colonoscopy 09/12/2024 HIV Screening 09/12/2024 Hepatitis C Screening 09/12/2024 Social Influencers of Health Screening 09/12/2024 Depression Screening 09/20/2024 Influenza Vaccine (#1) 2025 0, 06/07/2009 HIB Vaccines Aged Out No longer [...] mg/dL Blood Venous blood specimen / Unknown us Historical Provider LAB BLOOD ORDERABLES Yaritza l Result from Last 3 Months or Most Recently Relevant to Health Maintenance Care Teams Qc Analyst Relationship Specialty Start Date End Date Golden Henriquez MD [address] [place] [address] PCP - General 07/21/01
== END 2025-04-25 14:46 | disposition home or self-care (01) ==
LOC: HO.US 14:45
PROVIDERS: PCP Internal Medicine; Visit Provider Surgery Vascular Surgery
DX: I65.23 Occlusion and stenosis of bilateral carotid arteries (principal)
CPT/HCPCS: 93880

== ENCOUNTER → 2025-04-25 14:47 | Outpatient (BNV) | payer BC, SELFPAY | PROVIDERS: PCP Internal Medicine; Visit Provider Radiology Diagnostic Radiology | DX: I65.23 Occlusion and stenosis of bilateral carotid arteries (principal) | CPT/HCPCS: 93880 ==

== ENCOUNTER 2025-06-14 14:03 | Outpatient (AMB) | payer BC, SELFPAY ==
--- NOTE | 2025-06-14 14:07 | A.OFFVIS_ITS ---
Intake Visit Reasons: follow up Carotid US 04/25/25 Intake Note: Patient presents for follow up carotid US performed on 04/25/25. No complaints. Accompanied by: Self / Same As Patient Allergies shellfish derived Allergy (Verified 06/14/25 14:08) Anaphylaxis, soft shelled HPI HPI follow up Carotid US 04/25/25: Details: Very pleasant 54-year-old gentleman presents for routine surveillance follow-up regarding his carotids. He underwent left carotid endarterectomy on December 25 2024. He has done well with everything since that time. He has had no interval events. He now presents for routine follow-up with carotid surveillance. 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 Numbness and tingling in both hands Cervical radiculopathy due to degenerative joint disease of spine Peripheral neuropathy Anosmia Nasal congestion Nasal polyp Allergic rhinitis Malaise and fatigue Encounter for screening for malignant neoplasm of colon Elevated liver enzymes Obesity (BMI 30.0-34.9) Essential hypertension Dyslipidemia Surgical History History of cardiac catheterization (12/14/24) Hx of colonoscopy (07/05/24) H/O eye surgery Family History Father CAD (coronary artery disease) Brother CAD (coronary artery disease) Social History Household Members: Children Household Members Other:: Child and grandchild Housing: House Are you a primary vision care associate to a significant other at home: No Do you presently have visiting nurse or other home services: No Alcohol intake: former Comment: aware of trip hazard Patient Tobacco Use Status: Former Tobacco user Tobacco use type: Cigarette e-Cigarette/Vaping Use: Never Used Second Hand Smoke Exposure: No service: No Current occupational status: employed Cognitive needs: No Hearing needs: No Vision needs: Yes Review of Systems Const All systems reviewed & are unremarkable except as noted in HPI and below Reports no additional complaints ENT Reports Normal hearing present Card Denies chest pain, Denies chest pain at rest, Denies chest pain with activity and Denies pedal edema Resp Denies cough GI Denies abdominal pain Musc Denies abnormal gait, Denies muscle cramps and Denies radiating pain into limb Skin/Breast Denies skin ulcer and Denies wounds Neuro Reports Normal hearing present and Denies abnormal gait Psych Reports no additional complaints Physical Exam Const General: cooperative, healthy appearing and comfortable Orientation/consciousness: oriented to person, oriented to place and oriented to time HEENT Head: Yes normal to inspection Neck Neck: Yes normal visual inspection Carotids: no bruits Chest Chest palpation & inspection: normal inspection of the chest Resp Effort & Inspection: normal respiratory effort and able to speak in complete sentences Auscultation: clear to auscultation bilaterally, no crackles, no rales, no rhonchi and no wheezes Cardio Rate: regular rate Rhythm: regular rhythm Heart sounds: S1 normal heart sound present and S2 normal heart sound present Bruits: no carotid bruits Peripheral pulses: Peripheral pulses 2+ throughout GI Inspection: Yes normal to inspection Skin Wounds: no wounds Hair: normal Neuro General: oriented to person, oriented to place and oriented to time Cranial nerves: Yes CN's II-XII intact bilaterally and Yes Normal hearing present Cognition (Neuro): normal cognition Motor exam (neuro): 5/5 motor strength present throughout Extrem Other: venous exam: No significant superficial varicosities or spider telangiectasias, minimal edema General: No clubbing, No cyanosis and No edema Psych Appearance: grossly normal Mental Status: mental status grossly normal Speech and movement: Normal speech and movement present Results Reviewed Results Reviewed: Carotid ultrasound testing dated 04/25/2025 demonstrates bilateral 0-49% stenosis. Assessment & Plan Assessment & Plan (1) Bilateral carotid artery stenosis: Comment: 12/25/2024 - left carotid endarterectomy Code(s): I65.23 - Occlusion and stenosis of bilateral carotid arteries Category: Medical Plan: In short patient has asymptomatic carotid disease. We have reviewed signs and symptoms of a stroke. We also discussed risk factor modification inclusive a healthy diet low in cholesterol. The patient will follow up with us with surveillance ultrasound of the carotids six-month. Should there be any changes or signs or symptoms of a stroke we will be happy to see them back sooner. Thank you for allowing us to participate in this patient's care. If there are any questions or concerns please do not hesitate to contact us. (2) Carotid stenosis, left: Code(s): I65.22 - Occlusion and stenosis of left carotid artery Category: Medical Plan: Stable status post carotid endarterectomy Orders: Orders US carotid duplex BI 6 Months I65.23 - Occlusion and stenosis of bilateral carotid arteries Coding Level of Care Code Est Pt Level 4 (44867) Diagnoses Bilateral carotid artery stenosis I65.23 Carotid stenosis, left I65.22
== END 2025-06-14 14:23 | disposition home or self-care (01) ==
LOC: HO.HVS 14:04
PROVIDERS: PCP Internal Medicine; Visit Provider Surgery Vascular Surgery
DX: I65.23 Occlusion and stenosis of bilateral carotid arteries (principal); I65.22 Occlusion and stenosis of left carotid artery
CPT/HCPCS: 99214